=== PATIENT | female | born 1990 | race Caucasian/White ===

== ENCOUNTER 2018-06-22 11:25 | Emergency (ER) | payer MEDICAID ==
[~2018-06-22] VITALS: Ht 162.6 cm; Wt 75.0 kg
[~2018-06-22 11:25] MED LIST: ACYC-1 PO; ALBU8.5H8 IH; AZIT500T PO; BISA10SU60 RC; CLON-528 PO; DIPH-423 PO; DIPH25CA83 PO; DOXY-1 PO; HYDR-4353 PO; HYDR-4383 PO; IBUP-1986 PO; LAMO100T2 PO; MAGN296S50 PO; METH-360 PO; METO50TA16 PO; MULT-1085 PO; MYCO500T PO; ONDA8TAB12 PO; OXYC-150 PO; PANT-47 PO; PHE12.5T PO; POSA100T PO; PRED5SOL25 PO; PRED5TAB PO; SULF1TAB49 PO
[2018-06-22 11:41] VITALS: BP 128/88
[2018-06-22] MEDS ORDERED: HYDROcodone/acetaminophen 5mg/325mg tablet PO ONE (11:50)
[2018-06-22] MEDS ORDERED: diazepam 5mg tablet PO ONE (11:50)
[2018-06-22] MEDS ORDERED: ONDA4TAB6 PO (12:35)
[2018-06-22] MEDS ORDERED: CYCL-1 PO (12:35)
[2018-06-22] MEDS ORDERED: HYDR-4383 PO (12:35)
== END 2018-06-22 13:41 | disposition home or self-care (01) ==
LOC: ER 11:25
DX: S13.4XXA Sprain of ligaments of cervical spine, initial encounter (principal); G89.29 Other chronic pain; Z90.49 Acquired absence of other specified parts of digestive tract; Z98.890 Other specified postprocedural states; Z95.1 Presence of aortocoronary bypass graft; Z90.710 Acquired absence of both cervix and uterus; Z88.6 Allergy status to analgesic agent; Z88.1 Allergy status to other antibiotic agents; Z88.8 Allergy status to other drugs, medicaments and biological substances; Z79.899 Other long term (current) drug therapy; V49.59XA Passenger injured in collision with other motor vehicles in traffic accident, initial encounter; Y93.89 Activity, other specified; Y92.413 State road as the place of occurrence of the external cause; Y99.9 Unspecified external cause status
CPT/HCPCS: 72040; 99283

== ENCOUNTER 2019-01-12 13:56 | Emergency (ER) | payer MEDICAID, OTHER ==
[~2019-01-12] VITALS: Ht 162.6 cm; Wt 81.0 kg
[~2019-01-12 13:56] MED LIST changes: +CYCL-1 PO; +ONDA4TAB6 PO; -PHE12.5T PO; +PROM12.512 PO
[2019-01-12] MEDS ORDERED: normal saline 1000ML IV soln IV ONE (14:45)
[2019-01-12] MEDS ORDERED: ondansetron/PF 4mg/2ml inj IV ONE (14:50)
[2019-01-12] MEDS ORDERED: normal saline 1000ML IV soln IVB ONE (14:50)
[2019-01-12] MEDS ORDERED: morphine 4 MG/ML inj SYRINge IV PRN (14:50)
[2019-01-12 14:54] LABS: CLARITY,URINE CLOUDY (Clear); COLOR,URINE YELLOW (Yellow); GLUCOSE, URINE NEGATIVE (Neg); KETONES,URINE TRACE mg/dl (Neg); LEUKOCYTE ESTERASE ,URINE NEGATIVE (Neg); NITRITES, URINE NEGATIVE (Neg); OCCULT BLOOD,URINE NEGATIVE (Neg); PROTEIN,URINE TRACE mg/dl (Neg); URINE HCG NEGATIVE (NEG)
[2019-01-12 14:56] LABS: UA COLLECTION TYPE CLN CATCH MIDSTREAM
[2019-01-12 15:01] VITALS: BP 123/85
[2019-01-12 15:01] LABS: HYALINE CASTS >30 /LPF (NEGATIVE); MUCUS STRANDS MODERATE /LPF (Neg); SQUAMOUS EPITHELIAL CELL,UR MODERATE /LPF (FEW)
[2019-01-12 15:02] LABS: BACTERIA,URINE 1+ /HPF (Neg); RBC,URINE 0-2 /HPF (0-2); WBC,URINE 0-4 /HPF (0-4)
[2019-01-12 15:16] LABS: BASOPHILS % (AUTO) 0.2 % (0-1); EOSINOPHILS % (AUTO) 0.2 % (0-6); HEMATOCRIT 41.9 % (35.0-45.0); HEMOGLOBIN 14.3 g/dl (12.0-16.0); LYMPHOCYTES # (AUTO) 0.7 X10'3 (1.1-4.8); LYMPHOCYTES % (AUTO) 8.6 % (21-51); MEAN CORPUSCULAR HEMOGLOBIN 32.7 PG (27.0-31.0); MEAN CORPUSCULAR HGB CONC 34.2 g/dL (33.0-36.5); MEAN CORPUSCULAR VOLUME 95.7 FL (78-98); MEAN PLATELET VOLUME 7.3 FL (7.4-10.4); MONOCYTES # (AUTO) 0.4 X10'3 (0-0.9); NEUTROPHILS # (AUTO) 6.6 X10'3 (1.8-7.7); PLATELET COUNT 162 X10'3 (140-440); RED BLOOD COUNT 4.37 X10'6 (4.20-5.60); RED CELL DISTRIBUTION WIDTH 13.9 % (11.5-14.5); WHITE BLOOD COUNT 7.7 X10'3 (4.5-11.0)
[2019-01-12] MEDS ORDERED: HYDROmorphone 1 mg/ml syringe IV ONE ×2 (15:35→17:10)
[2019-01-12 15:44] LABS: ALANINE AMINOTRANSFERASE 524 U/L (12-78); ALBUMIN 4.2 G/DL (3.4-5.0); ALBUMIN/GLOBULIN RATIO 1.2 (1.1-1.5); ALKALINE PHOSPHATASE 446 IU/L (46-116); ANION GAP 14 (8-16); ASPARTATE AMINO TRANSFERASE 331 U/L (10-37); BILIRUBIN,TOTAL 1.1 MG/DL (0.1-1.0); BLOOD UREA NITROGEN 7 MG/DL (7-18); BUN/CREATININE RATIO 6.3 (6.6-38.0); CALCIUM 9.6 MG/DL (8.5-10.1); CHLORIDE 104 MMOL/L (99-107); CREATININE 1.12 MG/DL (0.40-0.90); GLUCOSE 116 MG/DL (70-104); SODIUM 139 MMOL/L (135-145); TOTAL CARBON DIOXIDE 21.1 MMOL/L (24-32); TOTAL PROTEIN 7.7 G/DL (6.4-8.2); eGFR 58 ML/MIN
[2019-01-12] MEDS ORDERED: iohexol 300mg/ml 100ml inj. ONE (16:02)
--- NOTE | 2019-01-12 16:13 | NUR ---
VERBAL ORDER, CHANGED CT ABD/PEL TO NON CONTRAST.
--- NOTE | 2019-01-12 18:01 | NUR ---
gave pt water, amina well no n/v
[2019-01-12] MEDS ORDERED: HYDR-4383 PO (18:04)
[2019-01-12] MEDS ORDERED: ONDA4TAB6 PO (18:04)
== END 2019-01-12 18:17 | disposition home or self-care (01) ==
LOC: ER 13:56
DX: K52.9 Noninfective gastroenteritis and colitis, unspecified (principal); G89.29 Other chronic pain; F41.9 Anxiety disorder, unspecified; F32.9 Major depressive disorder, single episode, unspecified; Z90.49 Acquired absence of other specified parts of digestive tract; Z86.69 Personal history of other diseases of the nervous system and sense organs; Z86.2 Personal history of diseases of the blood and blood-forming organs and certain disorders involving the immune mechanism; Z90.710 Acquired absence of both cervix and uterus; Z95.1 Presence of aortocoronary bypass graft; Z98.890 Other specified postprocedural states; Z88.6 Allergy status to analgesic agent; Z88.5 Allergy status to narcotic agent; Z88.1 Allergy status to other antibiotic agents; Z88.8 Allergy status to other drugs, medicaments and biological substances; Z79.899 Other long term (current) drug therapy
CPT/HCPCS: 36415; 74176; 80053; 81001; 81025; 83605; 84145; 85025; 85610; 87040; 96361; 96374; 96375; 96376; 99284; J1170; J2270; J2405; J7030; Q9967

== ENCOUNTER 2019-01-18 19:11 | Inpatient (IN) | payer MEDICAID ==
[~2019-01-18] VITALS: Ht 162.6 cm; Wt 81.0 kg
[2019-01-18 19:59] LABS: URINE HCG NEGATIVE (NEG)
[2019-01-18 20:04] LABS: CLARITY,URINE CLEAR (Clear); COLOR,URINE YELLOW (Yellow); GLUCOSE, URINE NEGATIVE (Neg); KETONES,URINE NEGATIVE (Neg); LEUKOCYTE ESTERASE ,URINE NEGATIVE (Neg); NITRITES, URINE NEGATIVE (Neg); OCCULT BLOOD,URINE NEGATIVE (Neg); PH,URINE 6.5 (4.8-8.0); PROTEIN,URINE NEGATIVE (Neg); UROBILINOGEN,URINE 0.2 E.U/dL (0.2-1.0)
[2019-01-18 20:07] LABS: BASOPHILS % (AUTO) 0.5 % (0-1); EOSINOPHILS # (AUTO) 0.1 X10'3 (0-0.9); EOSINOPHILS % (AUTO) 1.1 % (0-6); HEMATOCRIT 40.5 % (35.0-45.0); HEMOGLOBIN 13.9 g/dl (12.0-16.0); LYMPHOCYTES # (AUTO) 2.2 X10'3 (1.1-4.8); LYMPHOCYTES % (AUTO) 32.2 % (21-51); MEAN CORPUSCULAR HGB CONC 34.4 g/dL (33.0-36.5); MEAN PLATELET VOLUME 7.5 FL (7.4-10.4); MONOCYTES # (AUTO) 0.6 X10'3 (0-0.9); MONOCYTES % (AUTO) 8.8 % (2-12); NEUTROPHILS # (AUTO) 3.9 X10'3 (1.8-7.7); NEUTROPHILS % (AUTO) 57.4 % (42-75); PLATELET COUNT 168 X10'3 (140-440); RED BLOOD COUNT 4.22 X10'6 (4.20-5.60); RED CELL DISTRIBUTION WIDTH 13.1 % (11.5-14.5); WHITE BLOOD COUNT 6.9 X10'3 (4.5-11.0)
[2019-01-18 20:08] LABS: UA COLLECTION TYPE CLN CATCH MIDSTREAM
[2019-01-18 20:21] LABS: ALANINE AMINOTRANSFERASE 217 U/L (12-78); ALBUMIN 4.3 G/DL (3.4-5.0); ALBUMIN/GLOBULIN RATIO 1.2 (1.1-1.5); ALKALINE PHOSPHATASE 589 IU/L (46-116); ANION GAP 12 (8-16); ASPARTATE AMINO TRANSFERASE 139 U/L (10-37); BILIRUBIN,TOTAL 0.7 MG/DL (0.1-1.0); BLOOD UREA NITROGEN 10 MG/DL (7-18); BUN/CREATININE RATIO 7.4 (6.6-38.0); CALCIUM 9.5 MG/DL (8.5-10.1); CHLORIDE 103 MMOL/L (99-107); CREATININE 1.36 MG/DL (0.40-0.90); GLUCOSE 88 MG/DL (70-104); LIPASE 168 U/L (73-393); MAGNESIUM 2.2 MG/DL (1.5-2.4); SODIUM 140 MMOL/L (135-145); TOTAL CARBON DIOXIDE 24.7 MMOL/L (24-32); TOTAL PROTEIN 7.9 G/DL (6.4-8.2); eGFR 46 ML/MIN
[2019-01-18] MEDS ORDERED: fentaNYL/PF 50MCG/1 ML 2ML syringe IV ONE ×2 (20:25→21:35)
[2019-01-18] MEDS ORDERED: ondansetron/PF 4mg/2ml inj IV ONE (20:25)
[2019-01-18] MEDS ORDERED: diphenhydrAMINE 50 mg/ml inj IV ONE ×2 (20:25→21:15)
[2019-01-18] MEDS ORDERED: fentaNYL/PF 50MCG/1 ML 2ML syringe IV PRN (21:35)
[2019-01-18] MEDS ORDERED: mag hydrox/Alum hydrox/simeth 30ml oral suspension PO PRN (22:45)
[2019-01-18] MEDS ORDERED: HYDROmorphone 1 mg/ml syringe IV PRN (22:45)
[2019-01-18] MEDS ORDERED: acetaminophen 325mg tablet PO PRN (22:45)
[2019-01-18] MEDS ORDERED: magnesium hydroxide 30ml (MOM) UD suspension PO PRN (22:45)
[2019-01-18] MEDS ORDERED: naloxone 0.4 mg/ml inj IV PRN (22:50)
[2019-01-18] MEDS ORDERED: CADD PCA waste documentation MC PRN (22:50)
[2019-01-18] MEDS ORDERED: GABA-532 PO ×2 (22:53)
[2019-01-18] MEDS ORDERED: LURA40TA3 PO (22:53)
[2019-01-18] MEDS ORDERED: AMIT-189 PO (22:53)
[2019-01-18] MEDS ORDERED: lithium carbonate PO (22:53)
[2019-01-18] MEDS ORDERED: BUSP10TA11 PO (22:53)
[2019-01-18] MEDS ORDERED: diphenhydrAMINE 25mg capsule PO PRN (23:15)
[2019-01-19] MEDS: amitriptyline 50mg tablet PO SCH ×2 (00:15→21:30)
[2019-01-19] MEDS: normal saline 1000ml 1,000 ML IV SCH ×3 (00:30→20:10)
[2019-01-19] MEDS: HYDROmorphone/NS 1 mg/ml CADD 50 ML IV SCH ×6 (00:32→09:00)
[2019-01-19 00:49] VITALS: BP 106/73
--- NOTE | 2019-01-19 03:26 | NUR ---
REPORT REC'D FROM DAYDAY GAONA FROM ER. PIV 20GUAGE TO RIGHT FOOT PLACED IN ER. PT IS UP TO FLOOR , SETTLED IN WITH DILAUDID CADD PUMP IN PLACE.
[2019-01-19 06:10] VITALS: BP 97/61
--- NOTE | 2019-01-19 06:27 | NUR ---
REPORT GIVEN TO DAYDAY DIEHL.
--- NOTE | 2019-01-19 06:30 | NUR ---
Patient in room ORTHO 4021. I have received report from Savanna NAYLOR and had the opportunity to ask questions and assume patient care.
[2019-01-19 07:08] LABS: BASOPHILS % (AUTO) 0.6 % (0-1); EOSINOPHILS # (AUTO) 0.1 X10'3 (0-0.9); EOSINOPHILS % (AUTO) 2.9 % (0-6); HEMATOCRIT 38.8 % (35.0-45.0); HEMOGLOBIN 13.3 g/dl (12.0-16.0); LYMPHOCYTES # (AUTO) 1.1 X10'3 (1.1-4.8); LYMPHOCYTES % (AUTO) 46.8 % (21-51); MEAN CORPUSCULAR HEMOGLOBIN 33.1 PG (27.0-31.0); MEAN CORPUSCULAR HGB CONC 34.3 g/dL (33.0-36.5); MEAN CORPUSCULAR VOLUME 96.4 FL (78-98); MEAN PLATELET VOLUME 7.7 FL (7.4-10.4); MONOCYTES # (AUTO) 0.2 X10'3 (0-0.9); MONOCYTES % (AUTO) 10.3 % (2-12); NEUTROPHILS # (AUTO) 0.9 X10'3 (1.8-7.7); NEUTROPHILS % (AUTO) 39.4 % (42-75); PLATELET COUNT 118 X10'3 (140-440); RED BLOOD COUNT 4.03 X10'6 (4.20-5.60); RED CELL DISTRIBUTION WIDTH 13.6 % (11.5-14.5); WHITE BLOOD COUNT 2.3 X10'3 (4.5-11.0)
[2019-01-19 07:36] LABS: ALANINE AMINOTRANSFERASE 574 U/L (12-78); ALBUMIN 4.1 G/DL (3.4-5.0); ALBUMIN/GLOBULIN RATIO 1.2 (1.1-1.5); ALKALINE PHOSPHATASE 604 IU/L (46-116); ANION GAP 8 (8-16); ASPARTATE AMINO TRANSFERASE 499 U/L (10-37); BILIRUBIN,TOTAL 1.8 MG/DL (0.1-1.0); BLOOD UREA NITROGEN 8 MG/DL (7-18); BUN/CREATININE RATIO 7.4 (6.6-38.0); CALCIUM 8.9 MG/DL (8.5-10.1); CHLORIDE 105 MMOL/L (99-107); CREATININE 1.08 MG/DL (0.40-0.90); GLUCOSE 107 MG/DL (70-104); POTASSIUM 3.5 MMOL/L (3.5-5.1); SODIUM 142 MMOL/L (135-145); TOTAL CARBON DIOXIDE 29.5 MMOL/L (24-32); TOTAL PROTEIN 7.4 G/DL (6.4-8.2); eGFR 60 ML/MIN
[2019-01-19] MEDS: ondansetron/PF 4mg/2ml inj IV PRN ×2 (07:59→13:40)
[2019-01-19] MEDS ORDERED: clonazePAM 0.5mg tablet PO PRN (08:00)
[2019-01-19] MEDS: busPIRone 5mg tablet PO SCH ×2 (08:00→21:29)
[2019-01-19] MEDS: lamoTRIgine 25mg tablet PO SCH ×2 (08:00→21:29)
[2019-01-19] MEDS: heparin, porcine 5000 units/ml vial SQ SCH ×2 (09:15→21:30)
[2019-01-19] MEDS: diphenhydrAMINE 50 mg/ml inj IV PRN ×2 (09:16→15:49)
[2019-01-19 10:00] VITALS: BP 108/69
[2019-01-19 10:20] LABS: PLATELET ESTIMATE DECREASED; TOTAL CELLS COUNTED 100
[2019-01-19] MEDS: LORazepam 2 mg/ml vial IV PRN ×2 (11:29→20:30)
[2019-01-19] MEDS: metoclopramide 5 mg/ml inj IV PRN (11:29)
[2019-01-19] MEDS: HYDROmorphone 1 mg/ml syringe IV PRN ×3 (11:30→20:25)
[2019-01-19 18:00] VITALS: BP 113/78
--- NOTE | 2019-01-19 18:15 | NUR ---
Patient report given to Lexus NAYLOR
[2019-01-19 18:35] LABS: URINE AMPHETAMINE SCREEN NEGATIVE (Neg); URINE BARBITUATE SCREEN NEGATIVE (Neg); URINE BENZODIAZEPINES SCREEN NEGATIVE (Neg); URINE CANNABINOID SCREEN POSITIVE (Neg); URINE COCAINE SCREEN NEGATIVE (Neg); URINE METHADONE SCREEN NEGATIVE (Neg); URINE OPIATE SCREEN POSITIVE (Neg); URINE PHENCYCLIDINE SCREEN NEGATIVE (Neg)
[2019-01-19] MEDS ORDERED: amitriptyline 50mg tablet PO SCH (21:00)
[2019-01-19] MEDS: lurasidone 20mg tablet PO SCH (21:31)
[2019-01-19 22:00] VITALS: BP 122/79
[2019-01-20] MEDS: diphenhydrAMINE 50 mg/ml inj IV PRN ×2 (00:46→20:57)
[2019-01-20] MEDS: HYDROmorphone 1 mg/ml syringe IV PRN ×5 (00:46→20:58)
[2019-01-20] MEDS: lithium carbonate 300mg SR tablet (LithoBID) PO SCH ×3 (01:03→21:09)
[2019-01-20] MEDS: LORazepam 2 mg/ml vial IV PRN ×3 (04:48→20:57)
[2019-01-20] MEDS: normal saline 1000ml 1,000 ML IV SCH ×2 (04:56→14:40)
[2019-01-20 05:13] LABS: ALANINE AMINOTRANSFERASE 597 U/L (12-78); ALBUMIN 3.6 G/DL (3.4-5.0); ALBUMIN/GLOBULIN RATIO 1.2 (1.1-1.5); ALKALINE PHOSPHATASE 488 IU/L (46-116); ANION GAP 9 (8-16); ASPARTATE AMINO TRANSFERASE 245 U/L (10-37); BILIRUBIN,TOTAL 0.6 MG/DL (0.1-1.0); BLOOD UREA NITROGEN 5 MG/DL (7-18); BUN/CREATININE RATIO 6.3 (6.6-38.0); CALCIUM 7.8 MG/DL (8.5-10.1); CHLORIDE 109 MMOL/L (99-107); GLUCOSE 100 MG/DL (70-104); POTASSIUM 4.1 MMOL/L (3.5-5.1); SODIUM 141 MMOL/L (135-145); TOTAL CARBON DIOXIDE 23.4 MMOL/L (24-32); TOTAL PROTEIN 6.6 G/DL (6.4-8.2); eGFR 85 ML/MIN
[2019-01-20 06:00] VITALS: BP 99/53
[2019-01-20] MEDS: heparin, porcine 5000 units/ml vial SQ SCH (08:00)
[2019-01-20] MEDS: busPIRone 5mg tablet PO SCH ×2 (08:10→21:07)
[2019-01-20] MEDS: lamoTRIgine 25mg tablet PO SCH ×2 (08:10→21:08)
[2019-01-20] MEDS: ondansetron/PF 4mg/2ml inj IV PRN (08:12)
[2019-01-20 08:15] LABS: BASOPHILS % (AUTO) 0.8 % (0-1); EOSINOPHILS % (AUTO) 2.3 % (0-6); HEMATOCRIT 31.4 % (35.0-45.0); HEMOGLOBIN 10.7 g/dl (12.0-16.0); LYMPHOCYTES # (AUTO) 0.8 X10'3 (1.1-4.8); LYMPHOCYTES % (AUTO) 42.2 % (21-51); MEAN CORPUSCULAR HEMOGLOBIN 33.7 PG (27.0-31.0); MEAN CORPUSCULAR HGB CONC 34.1 g/dL (33.0-36.5); MEAN CORPUSCULAR VOLUME 98.9 FL (78-98); MEAN PLATELET VOLUME 7.9 FL (7.4-10.4); MONOCYTES # (AUTO) 0.2 X10'3 (0-0.9); MONOCYTES % (AUTO) 10.5 % (2-12); NEUTROPHILS # (AUTO) 0.8 X10'3 (1.8-7.7); NEUTROPHILS % (AUTO) 44.2 % (42-75); PLATELET COUNT 67 X10'3 (140-440); RED BLOOD COUNT 3.17 X10'6 (4.20-5.60); RED CELL DISTRIBUTION WIDTH 13.4 % (11.5-14.5); WHITE BLOOD COUNT 1.8 X10'3 (4.5-11.0)
[2019-01-20 10:00] VITALS: BP 116/77
[2019-01-20 10:41] LABS: PLATELET ESTIMATE DECREASED; TOTAL CELLS COUNTED 100
[2019-01-20] MEDS ORDERED: diphenhydrAMINE 25mg capsule PO ONE (11:40)
--- NOTE | 2019-01-20 11:56 | NUR ---
PAGER ID: [phone] MESSAGE: Mia [phone] [id number] Xiomara Pryor- she wants me to give iv Ativan, dilaudid, and Benadryl all together at the same time. Are you ok with this? Pls call me, thanks.
[2019-01-20 18:00] VITALS: BP 131/88
--- NOTE | 2019-01-20 19:00 | NUR ---
Patient in room ORTHO 4021. I have received report from Patient in room ORTHO 4021. I have received report from Mia NAYLOR and had the opportunity to ask questions and assume patient care. and had the opportunity to ask questions and assume patient care.
[2019-01-20] MEDS: lurasidone 20mg tablet PO SCH (21:00)
[2019-01-20] MEDS: amitriptyline 50mg tablet PO SCH (21:10)
[2019-01-20 22:00] VITALS: BP 144/100
[2019-01-21] MEDS: HYDROmorphone 1 mg/ml syringe IV PRN ×5 (00:34→20:40)
[2019-01-21] MEDS: normal saline 1000ml 1,000 ML IV SCH ×3 (00:44→19:10)
[2019-01-21] MEDS: LORazepam 2 mg/ml vial IV PRN ×3 (04:47→20:46)
[2019-01-21] MEDS: diphenhydrAMINE 50 mg/ml inj IV PRN (04:47)
[2019-01-21 05:32] LABS: ALANINE AMINOTRANSFERASE 385 U/L (12-78); ALBUMIN 3.3 G/DL (3.4-5.0); ALBUMIN/GLOBULIN RATIO 1.1 (1.1-1.5); ALKALINE PHOSPHATASE 387 IU/L (46-116); ANION GAP 7 (8-16); ASPARTATE AMINO TRANSFERASE 80 U/L (10-37); BILIRUBIN,TOTAL 0.3 MG/DL (0.1-1.0); BLOOD UREA NITROGEN 4 MG/DL (7-18); BUN/CREATININE RATIO 5.4 (6.6-38.0); CALCIUM 8.5 MG/DL (8.5-10.1); CHLORIDE 110 MMOL/L (99-107); CREATININE 0.74 MG/DL (0.40-0.90); GLUCOSE 93 MG/DL (70-104); SODIUM 142 MMOL/L (135-145); TOTAL CARBON DIOXIDE 25.3 MMOL/L (24-32); TOTAL PROTEIN 6.2 G/DL (6.4-8.2); eGFR > 90 ML/MIN
[2019-01-21 05:43] LABS: BASOPHILS % (AUTO) 0.8 % (0-1); EOSINOPHILS # (AUTO) 0.1 X10'3 (0-0.9); EOSINOPHILS % (AUTO) 2.4 % (0-6); HEMATOCRIT 32.5 % (35.0-45.0); HEMOGLOBIN 11.3 g/dl (12.0-16.0); LYMPHOCYTES # (AUTO) 0.9 X10'3 (1.1-4.8); LYMPHOCYTES % (AUTO) 41.3 % (21-51); MEAN CORPUSCULAR HEMOGLOBIN 33.2 PG (27.0-31.0); MEAN CORPUSCULAR HGB CONC 34.8 g/dL (33.0-36.5); MEAN CORPUSCULAR VOLUME 95.5 FL (78-98); MONOCYTES # (AUTO) 0.1 X10'3 (0-0.9); MONOCYTES % (AUTO) 6.6 % (2-12); NEUTROPHILS % (AUTO) 48.9 % (42-75); PLATELET COUNT 89 X10'3 (140-440); RED CELL DISTRIBUTION WIDTH 13.2 % (11.5-14.5); WHITE BLOOD COUNT 2.1 X10'3 (4.5-11.0)
[2019-01-21 06:00] VITALS: BP 123/86
--- NOTE | 2019-01-21 06:10 | NUR ---
Patient in room ORTHO 4021. I have received report from Syed Marquez RN and had the opportunity to ask questions and assume patient care.
[2019-01-21 06:32] LABS: PLATELET ESTIMATE DECREASED; TOTAL CELLS COUNTED 100
--- NOTE | 2019-01-21 06:47 | NUR ---
Problems reprioritized. Patient report given, questions answered & plan of care reviewed with Kavitha NAYLOR.
[2019-01-21] MEDS: busPIRone 5mg tablet PO SCH ×2 (08:23→20:44)
[2019-01-21] MEDS: lithium carbonate 300mg SR tablet (LithoBID) PO SCH ×2 (08:23→20:43)
[2019-01-21] MEDS: lamoTRIgine 25mg tablet PO SCH ×2 (08:23→20:43)
[2019-01-21 10:00] VITALS: BP 111/76
[2019-01-21] MEDS: diphenhydrAMINE 25mg capsule PO PRN ×2 (10:56→20:44)
--- NOTE | 2019-01-21 12:48 | NUR ---
PAGER ID: [phone] MESSAGE: Trevon Vicente, Ms Pryor's mother is here for rm [id number] thank you Kavitha
--- NOTE | 2019-01-21 15:39 | NUR ---
PAGER ID: [phone] MESSAGE: Trevon Vicente, are we still doing the gastric emptying study on Ms. Pryor in [id number] set for tomorrow? Thank you Kavitha #[phone]
--- NOTE | 2019-01-21 16:04 | NUR ---
Pt to have gastric emptying study tomorrow (01/22) at approx. 09:00. Pt's last dose of any narcotics/reglan/zofran/ativan needs to be prior to 21:00. Pt to be NPO after midnight. Confirmed with and [facility].
--- NOTE | 2019-01-21 18:33 | NUR ---
Problems reprioritized. Patient report given, questions answered & plan of care reviewed with Blaine NAYLOR.
--- NOTE | 2019-01-21 18:35 | NUR ---
Patient in room ORTHO 4021. I have received report from YIFAN NAYLOR and had the opportunity to ask questions and assume patient care.
[2019-01-21 19:00] VITALS: BP 123/82
[2019-01-21] MEDS: amitriptyline 50mg tablet PO SCH (20:43)
[2019-01-21] MEDS: lurasidone 20mg tablet PO SCH (20:43)
[2019-01-22] VITALS: BP 121/86
[2019-01-22] MEDS: normal saline 1000ml 1,000 ML IV SCH ×3 (04:39→20:39)
[2019-01-22 06:06] LABS: BASOPHILS % (AUTO) 0.9 % (0-1); EOSINOPHILS # (AUTO) 0.1 X10'3 (0-0.9); EOSINOPHILS % (AUTO) 2.7 % (0-6); HEMATOCRIT 36.1 % (35.0-45.0); HEMOGLOBIN 12.4 g/dl (12.0-16.0); LYMPHOCYTES # (AUTO) 0.9 X10'3 (1.1-4.8); LYMPHOCYTES % (AUTO) 31.2 % (21-51); MEAN CORPUSCULAR HEMOGLOBIN 33.3 PG (27.0-31.0); MEAN CORPUSCULAR HGB CONC 34.5 g/dL (33.0-36.5); MEAN CORPUSCULAR VOLUME 96.7 FL (78-98); MEAN PLATELET VOLUME 7.2 FL (7.4-10.4); MONOCYTES # (AUTO) 0.2 X10'3 (0-0.9); MONOCYTES % (AUTO) 5.8 % (2-12); NEUTROPHILS # (AUTO) 1.6 X10'3 (1.8-7.7); NEUTROPHILS % (AUTO) 59.4 % (42-75); PLATELET COUNT 115 X10'3 (140-440); RED BLOOD COUNT 3.74 X10'6 (4.20-5.60); RED CELL DISTRIBUTION WIDTH 13.8 % (11.5-14.5); WHITE BLOOD COUNT 2.7 X10'3 (4.5-11.0)
[2019-01-22 06:10] VITALS: BP 128/83
--- NOTE | 2019-01-22 06:30 | NUR ---
Problems reprioritized. Patient report given, questions answered & plan of care reviewed with FAZAL NAYLOR.
[2019-01-22 07:02] LABS: PLATELET ESTIMATE DECREASED; TOTAL CELLS COUNTED 100
[2019-01-22 07:06] LABS: ALANINE AMINOTRANSFERASE 331 U/L (12-78); ALBUMIN 3.6 G/DL (3.4-5.0); ALBUMIN/GLOBULIN RATIO 1.2 (1.1-1.5); ALKALINE PHOSPHATASE 415 IU/L (46-116); ANION GAP 11 (8-16); ASPARTATE AMINO TRANSFERASE 71 U/L (10-37); BILIRUBIN,TOTAL 0.6 MG/DL (0.1-1.0); BLOOD UREA NITROGEN 3 MG/DL (7-18); BUN/CREATININE RATIO 3.9 (6.6-38.0); CALCIUM 8.7 MG/DL (8.5-10.1); CHLORIDE 108 MMOL/L (99-107); CREATININE 0.77 MG/DL (0.40-0.90); GLUCOSE 87 MG/DL (70-104); POTASSIUM 3.9 MMOL/L (3.5-5.1); SODIUM 143 MMOL/L (135-145); TOTAL CARBON DIOXIDE 23.8 MMOL/L (24-32); TOTAL PROTEIN 6.7 G/DL (6.4-8.2); eGFR 89 ML/MIN
[2019-01-22] MEDS: lamoTRIgine 25mg tablet PO SCH ×2 (08:00→20:59)
[2019-01-22] MEDS: lithium carbonate 300mg SR tablet (LithoBID) PO SCH ×2 (08:00→21:00)
[2019-01-22] MEDS: busPIRone 5mg tablet PO SCH ×2 (08:00→21:00)
[2019-01-22 10:00] VITALS: BP 116/84
[2019-01-22] MEDS: diphenhydrAMINE 25mg capsule PO PRN ×2 (12:46→20:59)
[2019-01-22] MEDS: HYDROmorphone 1 mg/ml syringe IV PRN ×3 (12:49→23:42)
[2019-01-22] MEDS: LORazepam 2 mg/ml vial IV PRN ×2 (13:01→21:00)
[2019-01-22] MEDS: metoclopramide 5 mg/ml inj IV PRN ×2 (13:52→21:01)
[2019-01-22 18:00] VITALS: BP 127/87
--- NOTE | 2019-01-22 18:00 | NUR ---
Patient in room ORTHO 4021. I have received report from DAYDAY Stephens and had the opportunity to ask questions and assume patient care.
--- NOTE | 2019-01-22 18:29 | NUR ---
Patient report given to Tamara NAYLOR
[2019-01-22] MEDS: lurasidone 20mg tablet PO SCH (21:00)
[2019-01-22] MEDS: amitriptyline 50mg tablet PO SCH (21:00)
[2019-01-23] MEDS: diphenhydrAMINE 25mg capsule PO PRN (04:04)
[2019-01-23] MEDS: HYDROmorphone 1 mg/ml syringe IV PRN (04:04)
[2019-01-23] MEDS: LORazepam 2 mg/ml vial IV PRN (05:14)
[2019-01-23 06:00] VITALS: BP 109/78
--- NOTE | 2019-01-23 06:20 | NUR ---
Patient in room ORTHO 4021. I have received report from DAYDAY Juarez and had the opportunity to ask questions and assume patient care.
--- NOTE | 2019-01-23 06:50 | NUR ---
Problems reprioritized. Patient report given, questions answered & plan of care reviewed with DAYDAY Bhagat.
[2019-01-23] MEDS: normal saline 1000ml 1,000 ML IV SCH (08:00)
--- NOTE | 2019-01-23 08:05 | NUR ---
IV cannula noted in right foot has dislodged and was discontinued at this time. Pt reports she is going home later today. Sent page to to report IV has dc'd and pt is requesting po pain medications at discharge.
[2019-01-23 08:13] LABS: HBSAG SCREEN Negative (Negative); HEP A AB, IGM Negative (Negative); HEP B CORE AB, IGM Negative (Negative); HEPATITIS C ANTIBODY <0.1 s/co ratio (0.0-0.9)
[2019-01-23] MEDS: busPIRone 5mg tablet PO SCH (08:41)
[2019-01-23] MEDS: lithium carbonate 300mg SR tablet (LithoBID) PO SCH (08:41)
[2019-01-23] MEDS: lamoTRIgine 25mg tablet PO SCH (08:41)
[2019-01-23 11:03] LABS: BASOPHILS % (AUTO) 0.5 % (0-1); EOSINOPHILS # (AUTO) 0.1 X10'3 (0-0.9); EOSINOPHILS % (AUTO) 1.9 % (0-6); HEMATOCRIT 37.8 % (35.0-45.0); HEMOGLOBIN 12.9 g/dl (12.0-16.0); LYMPHOCYTES # (AUTO) 0.9 X10'3 (1.1-4.8); LYMPHOCYTES % (AUTO) 31.5 % (21-51); MEAN CORPUSCULAR HEMOGLOBIN 32.4 PG (27.0-31.0); MEAN CORPUSCULAR HGB CONC 34.1 g/dL (33.0-36.5); MEAN PLATELET VOLUME 6.8 FL (7.4-10.4); MONOCYTES # (AUTO) 0.2 X10'3 (0-0.9); MONOCYTES % (AUTO) 5.7 % (2-12); NEUTROPHILS # (AUTO) 1.8 X10'3 (1.8-7.7); NEUTROPHILS % (AUTO) 60.4 % (42-75); PLATELET COUNT 115 X10'3 (140-440); RED BLOOD COUNT 3.97 X10'6 (4.20-5.60); RED CELL DISTRIBUTION WIDTH 13.5 % (11.5-14.5); WHITE BLOOD COUNT 2.9 X10'3 (4.5-11.0)
[2019-01-23] MEDS ORDERED: METO-292 PO (11:06)
[2019-01-23] MEDS ORDERED: HYDR-4383 PO (11:06)
[2019-01-23] MEDS ORDERED: OMEP40CA13 PO (11:07)
[2019-01-23 11:16] LABS: ALANINE AMINOTRANSFERASE 314 U/L (12-78); ALBUMIN 3.6 G/DL (3.4-5.0); ALBUMIN/GLOBULIN RATIO 1.2 (1.1-1.5); ALKALINE PHOSPHATASE 455 IU/L (46-116); ANION GAP 10 (8-16); ASPARTATE AMINO TRANSFERASE 93 U/L (10-37); BILIRUBIN,TOTAL 0.6 MG/DL (0.1-1.0); BLOOD UREA NITROGEN 3 MG/DL (7-18); BUN/CREATININE RATIO 3.6 (6.6-38.0); CALCIUM 9.1 MG/DL (8.5-10.1); CHLORIDE 107 MMOL/L (99-107); CREATININE 0.84 MG/DL (0.40-0.90); GLUCOSE 141 MG/DL (70-104); POTASSIUM 3.8 MMOL/L (3.5-5.1); SODIUM 141 MMOL/L (135-145); TOTAL CARBON DIOXIDE 24.5 MMOL/L (24-32); TOTAL PROTEIN 6.7 G/DL (6.4-8.2); eGFR 80 ML/MIN
[2019-01-23 11:23] LABS: PLATELET ESTIMATE DECREASED; TOTAL CELLS COUNTED 100
--- NOTE | 2019-01-23 13:45 | NUR ---
Received discharge orders for pt to discharge today. Stored medications picked up and given to pt who signed pharmacy receipt. RX called to [facility] on [address] by Scott Silver RN. RX for [place] given to pt and informed pt she needs to take it to the Pharmacy to be filled. Discharged via w/c to private vehicle.
== END 2019-01-23 15:14 | disposition home or self-care (01) | DRG 254 ==
LOC: ER 19:11 → ORTHO 4S 23:20 → CMPBEDREQ 23:58
PROVIDERS: ADMIT Internal Medicine; ATTEND Family Medicine
PROC: CD1YYZZ Planar Nuclear Medicine Imaging of Digestive System using Other Radionuclide (ICD-10-PCS; principal; 2019-01-22)
DX: K31.84 Gastroparesis (principal); E86.0 Dehydration; K29.00 Acute gastritis without bleeding; F11.10 Opioid abuse, uncomplicated; F32.9 Major depressive disorder, single episode, unspecified; F41.9 Anxiety disorder, unspecified; G89.29 Other chronic pain; M54.9 Dorsalgia, unspecified; G40.909 Epilepsy, unspecified, not intractable, without status epilepticus; Z85.6 Personal history of leukemia; Z90.710 Acquired absence of both cervix and uterus; Z88.8 Allergy status to other drugs, medicaments and biological substances; Z91.041 Radiographic dye allergy status; Z90.49 Acquired absence of other specified parts of digestive tract; Z95.1 Presence of aortocoronary bypass graft
CPT/HCPCS: 36415; 74176; 78264; 80053; 80074; 80178; 80305; 81003; 81025; 83605; 83690; 83735; 85025; 87081; 96374; 96375; 96376; 99285; A9541; G0378; J1170; J1200; J1644; J2060; J2405; J2765; J3010; J7030; Q0163

== ENCOUNTER 2020-03-29 10:06 | Emergency (ER) | payer MEDICAID ==
[~2020-03-29] VITALS: Ht 162.6 cm; Wt 80.0 kg
[~2020-03-29 10:06] MED LIST changes: -ACYC-1 PO; -ALBU8.5H8 IH; +AMIT-189 PO; -AZIT500T PO; -BISA10SU60 RC; +BUSP10TA11 PO; -CYCL-1 PO; -DIPH-423 PO; -DOXY-1 PO; +GABA-532 PO; -HYDR-4353 PO; -IBUP-1986 PO; +LURA40TA3 PO; -MAGN296S50 PO; -METH-360 PO; +METO-292 PO; -METO50TA16 PO; -MULT-1085 PO; -MYCO500T PO; -ONDA4TAB6 PO; -ONDA8TAB12 PO; -OXYC-150 PO; -PANT-47 PO; -POSA100T PO; -PRED5SOL25 PO; -PRED5TAB PO; -PROM12.512 PO; -SULF1TAB49 PO; +lithium carbonate PO
[2020-03-29] MEDS ORDERED: ondansetron/PF 4mg/2ml inj IV ONE (11:20)
[2020-03-29] MEDS ORDERED: acetaminophen 325mg tablet PO ONE (11:20)
[2020-03-29] MEDS ORDERED: SUMAtriptan succ. 6 MG/0.5ml vial SQ ONE (11:20)
[2020-03-29] MEDS ORDERED: diphenhydrAMINE 50 mg/ml inj IV ONE ×2 (11:20→14:45)
[2020-03-29 11:57] LABS: BASOPHILS % (AUTO) 1.1 % (0-1); EOSINOPHILS # (AUTO) 0.1 X10'3 (0-0.9); EOSINOPHILS % (AUTO) 2.5 % (0-6); HEMATOCRIT 42.2 % (35.0-45.0); HEMOGLOBIN 14.7 g/dl (12.0-16.0); LYMPHOCYTES # (AUTO) 1.2 X10'3 (1.1-4.8); LYMPHOCYTES % (AUTO) 31.7 % (21-51); MEAN CORPUSCULAR HEMOGLOBIN 33.6 PG (27.0-31.0); MEAN CORPUSCULAR HGB CONC 34.9 g/dL (33.0-36.5); MEAN CORPUSCULAR VOLUME 96.4 FL (78-98); MONOCYTES # (AUTO) 0.3 X10'3 (0-0.9); MONOCYTES % (AUTO) 8.8 % (2-12); NEUTROPHILS # (AUTO) 2.1 X10'3 (1.8-7.7); NEUTROPHILS % (AUTO) 55.9 % (42-75); PLATELET COUNT 146 X10'3 (140-440); RED BLOOD COUNT 4.38 X10'6 (4.20-5.60); RED CELL DISTRIBUTION WIDTH 14.7 % (11.5-14.5); WHITE BLOOD COUNT 3.7 X10'3 (4.5-11.0)
[2020-03-29 12:09] LABS: ALANINE AMINOTRANSFERASE 428 U/L (12-78); ALBUMIN 4.2 G/DL (3.4-5.0); ALBUMIN/GLOBULIN RATIO 1.1 (1.1-1.5); ALKALINE PHOSPHATASE 367 IU/L (46-116); ANION GAP 12 (8-16); ASPARTATE AMINO TRANSFERASE 74 U/L (10-37); BILIRUBIN,TOTAL 0.7 MG/DL (0.1-1.0); BLOOD UREA NITROGEN 13 MG/DL (7-18); CALCIUM 9.8 MG/DL (8.5-10.1); CHLORIDE 102 MMOL/L (99-107); GLUCOSE 99 MG/DL (70-104); SODIUM 139 MMOL/L (135-145)
[2020-03-29] MEDS ORDERED: normal saline 1000ML IV soln IVB ONE (12:10)
--- NOTE | 2020-03-29 12:39 | NUR ---
back from CT via wheelchair at this time.
[2020-03-29 13:17] LABS: BUN/CREATININE RATIO 17.1 (6.6-38.0); CREATININE 0.76 MG/DL (0.40-0.90); eGFR 89 ML/MIN
[2020-03-29] MEDS ORDERED: HYDROmorphone inj. 0.5 MG/0.5 ML DISP.SYRIN IV ONE ×2 (14:00→15:05)
--- NOTE | 2020-03-29 17:10 | NUR ---
to xray at this time.
[2020-03-29 19:15] LABS: GLUCOSE,CSF 56 MG/DL (40-75); TOTAL PROTEIN,CSF 43 MG/DL (15-45)
[2020-03-29 19:51] LABS: APPEARANCE,CSF CLEAR; CSF SUPERNATANT COLOR COLORLESS; CSF VOLUME 17 ML; CSF WBC CT 1 /CU MM (0-5); TUBE# COUNTED 4
[2020-03-29 19:52] LABS: APPEARANCE,CSF CLEAR; CSF RBC 2 /CU MM (0); CSF SUPERNATANT COLOR COLORLESS; CSF VOLUME 17 ML; TUBE# COUNTED 1
[2020-03-29 19:53] LABS: CSF RBC 4 /CU MM (0); CSF WBC CT 2 /CU MM (0-5)
[2020-03-29 20:33] VITALS: BP 153/115
== END 2020-03-29 20:35 | disposition home or self-care (01) ==
LOC: ER 10:07
DX: G43.909 Migraine, unspecified, not intractable, without status migrainosus (principal); G93.2 Benign intracranial hypertension; F31.9 Bipolar disorder, unspecified; F41.9 Anxiety disorder, unspecified; G89.29 Other chronic pain; Z86.69 Personal history of other diseases of the nervous system and sense organs; Z90.49 Acquired absence of other specified parts of digestive tract; Z90.710 Acquired absence of both cervix and uterus; Z98.890 Other specified postprocedural states; Z88.5 Allergy status to narcotic agent; Z88.8 Allergy status to other drugs, medicaments and biological substances; Z79.899 Other long term (current) drug therapy
CPT/HCPCS: 36415; 70450; 80053; 82945; 84157; 85025; 85610; 87015; 87070; 89051; 96361; 96372; 96374; 96375; 96376; 99285; J1170; J1200; J2405; J7030; J3030

== ENCOUNTER 2020-07-19 14:23 | Emergency (ER) | payer MEDICAID ==
[~2020-07-19] VITALS: Ht 162.6 cm; Wt 88.8 kg
[2020-07-19 14:29] VITALS: BP 157/100
[2020-07-19] MEDS ORDERED: HYDROcodone/acetaminophen 5mg/325mg tablet PO ONE (17:25)
[2020-07-19] MEDS ORDERED: HYDR-3965 PO (17:28)
== END 2020-07-19 17:42 | disposition home or self-care (01) ==
LOC: ER 14:23
DX: R10.84 Generalized abdominal pain (principal); R11.2 Nausea with vomiting, unspecified; G89.29 Other chronic pain; F41.9 Anxiety disorder, unspecified; F31.9 Bipolar disorder, unspecified; Z86.69 Personal history of other diseases of the nervous system and sense organs; Z86.2 Personal history of diseases of the blood and blood-forming organs and certain disorders involving the immune mechanism; Z87.01 Personal history of pneumonia (recurrent); Z90.49 Acquired absence of other specified parts of digestive tract; Z90.710 Acquired absence of both cervix and uterus; Z98.890 Other specified postprocedural states; Z88.6 Allergy status to analgesic agent; Z88.5 Allergy status to narcotic agent; Z88.1 Allergy status to other antibiotic agents; Z88.8 Allergy status to other drugs, medicaments and biological substances; Z79.899 Other long term (current) drug therapy
CPT/HCPCS: 99283

== ENCOUNTER 2020-08-31 11:43 | Outpatient (CLI) | payer MEDICAID | END 2020-08-31 23:59 | disposition home or self-care (01) | LOC: RAD 11:43 | PROVIDERS: ATTEND Surgery | DX: R10.9 Unspecified abdominal pain (principal); Z90.49 Acquired absence of other specified parts of digestive tract | CPT/HCPCS: 76705 ==

== ENCOUNTER 2020-09-20 12:07 | Emergency (ER) | payer MEDICAID ==
[~2020-09-20] VITALS: Ht 162.6 cm; Wt 90.9 kg
[2020-09-20] MEDS ORDERED: normal saline 1000ML IV soln IVB ONE (12:30)
[2020-09-20] MEDS ORDERED: diphenhydrAMINE 50 mg/ml inj IV ONE (12:55)
[2020-09-20] MEDS ORDERED: famotidine/PF 10 mg/ml inj IV ONE (12:55)
[2020-09-20] MEDS ORDERED: IOHEXOL 12MG/ML oral solution 500 ML BOTTLE PO ONE (12:55)
[2020-09-20] MEDS ORDERED: methylPREDNISolone sod succ 125mg/2ml vial IV ONE (12:55)
[2020-09-20 13:03] LABS: BASOPHILS % (AUTO) 0.4 % (0-1); EOSINOPHILS % (AUTO) 0.6 % (0-6); HEMATOCRIT 45.5 % (35.0-45.0); HEMOGLOBIN 15.3 g/dl (12.0-16.0); LYMPHOCYTES # (AUTO) 1.6 X10'3 (1.1-4.8); MEAN CORPUSCULAR HGB CONC 33.6 g/dL (33.0-36.5); MEAN CORPUSCULAR VOLUME 92.3 FL (78-98); MEAN PLATELET VOLUME 7.5 FL (7.4-10.4); MONOCYTES # (AUTO) 0.3 X10'3 (0-0.9); MONOCYTES % (AUTO) 5.4 % (2-12); NEUTROPHILS # (AUTO) 4.4 X10'3 (1.8-7.7); NEUTROPHILS % (AUTO) 68.6 % (42-75); PLATELET COUNT 149 X10'3 (140-440); RED BLOOD COUNT 4.93 X10'6 (4.20-5.60); RED CELL DISTRIBUTION WIDTH 14.2 % (11.5-14.5); WHITE BLOOD COUNT 6.5 X10'3 (4.5-11.0)
[2020-09-20 13:18] LABS: ALANINE AMINOTRANSFERASE 250 U/L (12-78); ALBUMIN 4.9 G/DL (3.4-5.0); ALBUMIN/GLOBULIN RATIO 1.3 (1.1-1.5); ALKALINE PHOSPHATASE 543 IU/L (46-116); ANION GAP 15 (8-16); ASPARTATE AMINO TRANSFERASE 53 U/L (10-37); BILIRUBIN,TOTAL 0.8 MG/DL (0.1-1.0); BLOOD UREA NITROGEN 14 MG/DL (7-18); BUN/CREATININE RATIO 16.9 (6.6-38.0); CALCIUM 10.1 MG/DL (8.5-10.1); CHLORIDE 103 MMOL/L (99-107); CREATININE 0.83 MG/DL (0.40-0.90); GLUCOSE 89 MG/DL (70-104); POTASSIUM 3.9 MMOL/L (3.5-5.1); SODIUM 141 MMOL/L (135-145); TOTAL CARBON DIOXIDE 23.5 MMOL/L (24-32); TOTAL PROTEIN 8.8 G/DL (6.4-8.2); eGFR 81 ML/MIN
--- NOTE | 2020-09-20 14:44 | NUR ---
relieving RN for break, pt sitting on edge of bed, waiting to go to CT
[2020-09-20] MEDS ORDERED: iohexol 300mg/ml 100ml inj. ONE (14:53)
[2020-09-20] MEDS ORDERED: OXYC-150 PO (16:17)
[2020-09-20 16:24] VITALS: BP 156/102
== END 2020-09-20 16:29 | disposition home or self-care (01) ==
LOC: ER 12:07
DX: R10.84 Generalized abdominal pain (principal); R11.2 Nausea with vomiting, unspecified; R19.7 Diarrhea, unspecified; K46.9 Unspecified abdominal hernia without obstruction or gangrene; G89.29 Other chronic pain; F41.9 Anxiety disorder, unspecified; F31.9 Bipolar disorder, unspecified; Z86.69 Personal history of other diseases of the nervous system and sense organs; Z86.2 Personal history of diseases of the blood and blood-forming organs and certain disorders involving the immune mechanism; Z87.01 Personal history of pneumonia (recurrent); Z90.49 Acquired absence of other specified parts of digestive tract; Z90.710 Acquired absence of both cervix and uterus; Z98.890 Other specified postprocedural states; Z88.5 Allergy status to narcotic agent; Z88.6 Allergy status to analgesic agent; Z88.1 Allergy status to other antibiotic agents; Z88.8 Allergy status to other drugs, medicaments and biological substances; Z79.899 Other long term (current) drug therapy
CPT/HCPCS: 36415; 74177; 80053; 85025; 96361; 96374; 96375; 99285; J1200; J2930; J3490; J7030; Q9967

== ENCOUNTER 2022-01-27 12:24 | Emergency (ER) | payer MEDICAID ==
[~2022-01-27] VITALS: Ht 162.6 cm; Wt 78.6 kg
[~2022-01-27 12:24] MED LIST changes: +LURA40TA2 PO; -LURA40TA3 PO; +OXYC-150 PO
[2022-01-27] MEDS ORDERED: valproate sod inj 1,000 MG in normal saline 50ml IV soln 50 ML IV STA (14:27)
[2022-01-27] MEDS ORDERED: diazepam inj 5 MG/ML inj. IV ONE ×2 (14:30→16:15)
[2022-01-27] MEDS ORDERED: metoclopramide 5 mg/ml inj IV ONE (14:30)
[2022-01-27] MEDS ORDERED: diphenhydrAMINE 50 mg/ml inj IV ONE (14:30)
[2022-01-27] MEDS ORDERED: normal saline 1000ml 1,000 ML IV ONE (14:30)
[2022-01-27] MEDS ORDERED: SUMAtriptan succ. 6 MG/0.5ml vial SQ ONE (16:15)
[2022-01-27] MEDS ORDERED: HYDROcodone/acetaminophen 10/325mg tab PO ONE (16:20)
[2022-01-27 17:09] VITALS: BP 114/84
[2022-01-27] MEDS ORDERED: ONDA4TAB12 PO (17:18)
[2022-01-27] MEDS ORDERED: HYDR-3965 PO (17:18)
[2022-01-27] MEDS ORDERED: DIAZ5TAB22 PO (17:18)
== END 2022-01-27 18:05 | disposition home or self-care (01) ==
LOC: ER 12:25
DX: G43.909 Migraine, unspecified, not intractable, without status migrainosus (principal); M54.50 Low back pain, unspecified; G89.29 Other chronic pain; Z88.1 Allergy status to other antibiotic agents; Z88.5 Allergy status to narcotic agent; Z88.6 Allergy status to analgesic agent; Z90.49 Acquired absence of other specified parts of digestive tract; Z90.710 Acquired absence of both cervix and uterus
CPT/HCPCS: 96361; 96372; 96374; 96375; 96376; 99284; J1200; J2765; J3030; J3360; J7030

== ENCOUNTER 2022-02-02 13:17 | Emergency (ER) | payer MEDICAID ==
[~2022-02-02] VITALS: Ht 162.6 cm; Wt 80.0 kg
[~2022-02-02 13:17] MED LIST changes: +DIAZ5TAB22 PO; +HYDR-3965 PO; +ONDA4TAB12 PO
[2022-02-02] MEDS ORDERED: metoclopramide 5 mg/ml inj IV ONE (14:30)
[2022-02-02] MEDS ORDERED: SUMAtriptan succ. 6 MG/0.5ml vial SQ ONE (14:30)
[2022-02-02] MEDS ORDERED: diphenhydrAMINE 50 mg/ml inj IV ONE (14:30)
[2022-02-02] MEDS ORDERED: diazepam inj 5 MG/ML inj. IV ONE (14:30)
[2022-02-02] MEDS ORDERED: normal saline 1000ml 1,000 ML IV ONE (14:30)
[2022-02-02] MEDS ORDERED: ondansetron/PF 4mg/2ml inj IV ONE (17:15)
[2022-02-02] MEDS ORDERED: HYDROcodone/acetaminophen 10/325mg tab PO ONE (17:15)
[2022-02-02 17:33] VITALS: BP 115/84
== END 2022-02-02 17:34 | disposition home or self-care (01) ==
LOC: ER 13:18
DX: G43.909 Migraine, unspecified, not intractable, without status migrainosus (principal); D64.9 Anemia, unspecified; G89.29 Other chronic pain; M54.9 Dorsalgia, unspecified; F31.9 Bipolar disorder, unspecified; Z98.890 Other specified postprocedural states; Z88.6 Allergy status to analgesic agent; Z88.5 Allergy status to narcotic agent; Z79.899 Other long term (current) drug therapy; Z88.8 Allergy status to other drugs, medicaments and biological substances; Z79.1 Long term (current) use of non-steroidal anti-inflammatories (NSAID); Z79.2 Long term (current) use of antibiotics
CPT/HCPCS: 70450; 96361; 96372; 96374; 96375; 99285; J1200; J2405; J2765; J3030; J3360; J7030

== ENCOUNTER 2022-02-12 13:36 | Emergency (ER) | payer MEDICAID ==
[~2022-02-12] VITALS: Ht 162.6 cm; Wt 80.0 kg
[2022-02-12] MEDS ORDERED: diazepam inj 5 MG/ML inj. IV ONE (20:35)
[2022-02-12] MEDS ORDERED: normal saline 1000ML IV soln IVB ONE (20:35)
[2022-02-12] MEDS ORDERED: metoclopramide 5 mg/ml inj IV ONE (20:35)
[2022-02-12] MEDS ORDERED: diphenhydrAMINE 50 mg/ml inj IV ONE (20:35)
--- NOTE | 2022-02-12 22:14 | NUR ---
PT REPORTS NO RELIEF. I SPOKE TO PROVIDER. SHE WILL WRITE UP ORDERS.
[2022-02-12] MEDS ORDERED: SUMAtriptan succ. 6 MG/0.5ml vial SQ ONE (22:20)
[2022-02-12] MEDS ORDERED: haloperidol lactate 5mg/ml inj IM ONE (22:30)
[2022-02-12 23:47] VITALS: BP 129/93
== END 2022-02-12 23:48 | disposition home or self-care (01) ==
LOC: ER 13:40
DX: R51.9 Headache, unspecified (principal); R42 Dizziness and giddiness; H53.8 Other visual disturbances; G89.29 Other chronic pain; F41.9 Anxiety disorder, unspecified; F31.9 Bipolar disorder, unspecified; Z86.69 Personal history of other diseases of the nervous system and sense organs; Z87.01 Personal history of pneumonia (recurrent); Z86.2 Personal history of diseases of the blood and blood-forming organs and certain disorders involving the immune mechanism; Z90.49 Acquired absence of other specified parts of digestive tract; Z90.710 Acquired absence of both cervix and uterus; Z98.890 Other specified postprocedural states; Z88.6 Allergy status to analgesic agent; Z88.5 Allergy status to narcotic agent; Z88.8 Allergy status to other drugs, medicaments and biological substances; Z79.899 Other long term (current) drug therapy
CPT/HCPCS: 96361; 96372; 96374; 96375; 99285; J1200; J1630; J2765; J3030; J3360; J7030

== ENCOUNTER 2022-02-27 11:34 | Emergency (ER) | payer MEDICAID ==
[~2022-02-27] VITALS: Ht 162.6 cm; Wt 78.6 kg
[2022-02-27 12:10] VITALS: BP 124/106
[2022-02-27] MEDS ORDERED: SUMAtriptan succ. 6 MG/0.5ml vial SQ ONE (13:45)
[2022-02-27] MEDS ORDERED: metoclopramide 5 mg/ml inj IV ONE (13:45)
[2022-02-27] MEDS ORDERED: diazepam inj 5 MG/ML inj. IV ONE (13:45)
[2022-02-27] MEDS ORDERED: diphenhydrAMINE 50 mg/ml inj IM ONE (13:45)
[2022-02-27] MEDS ORDERED: normal saline 1000ML IV soln IVB ONE (13:45)
[2022-02-27] MEDS ORDERED: proparacaine 0.5% ophthalmic drops 15ml EACHEYE ONE ×2 (14:20→14:33)
[2022-02-27] MEDS ORDERED: diphenhydrAMINE 50 mg/ml inj IV ONE (14:25)
[2022-02-27] MEDS ORDERED: HYDROcodone/acetaminophen 5mg/325mg tablet PO ONE (14:30)
[2022-02-27] MEDS ORDERED: HYDR-3965 PO (16:15)
[2022-02-27] MEDS ORDERED: ONDA8TAB13 PO (16:15)
== END 2022-02-27 16:24 | disposition home or self-care (01) ==
LOC: ER 11:34
DX: G43.909 Migraine, unspecified, not intractable, without status migrainosus (principal); H57.11 Ocular pain, right eye; G89.29 Other chronic pain; M54.9 Dorsalgia, unspecified; F31.9 Bipolar disorder, unspecified; Z88.6 Allergy status to analgesic agent; Z79.899 Other long term (current) drug therapy; Z79.1 Long term (current) use of non-steroidal anti-inflammatories (NSAID); Z79.2 Long term (current) use of antibiotics
CPT/HCPCS: 96361; 96372; 96374; 96375; 99284; J1200; J2765; J3030; J3360; J7030

== ENCOUNTER 2022-03-29 14:57 | Emergency (ER) | payer MEDICAID ==
[~2022-03-29] VITALS: Ht 162.6 cm; Wt 79.0 kg
[~2022-03-29 14:57] MED LIST changes: -DIAZ5TAB22 PO; -HYDR-3965 PO; +ONDA8TAB13 PO
[2022-03-29] MEDS ORDERED: ondansetron/PF 4mg/2ml inj IV ONE (15:20)
[2022-03-29] MEDS ORDERED: normal saline 1000ML IV soln IVB ONE (15:20)
--- NOTE | 2022-03-29 15:50 | NUR ---
Pt difficult IV start, currently RN attempting ultrasound guided IV in.
[2022-03-29] MEDS ORDERED: fentaNYL/PF 50MCG/1 ML 2ML syringe IV ONE ×3 (15:55→18:35)
--- NOTE | 2022-03-29 16:00 | NUR ---
Pt with IV start to L foot.
--- NOTE | 2022-03-29 16:10 | NUR ---
Pt taken to CT.
--- NOTE | 2022-03-29 16:30 | NUR ---
Received VO from Dr. Osorio to remove C-colar, pt is also taken off trauma status per Dr. Osorio.
[2022-03-29] MEDS ORDERED: diphenhydrAMINE 50 mg/ml inj IV ONE (16:40)
[2022-03-29] MEDS ORDERED: HYDROcodone/acetaminophen 10/325mg tab PO ONE (16:50)
[2022-03-29] MEDS ORDERED: ONDA4TAB12 PO (18:28)
[2022-03-29] MEDS ORDERED: HYDR-3972 PO (18:28)
[2022-03-29] MEDS ORDERED: ORPH100T2 PO (18:31)
[2022-03-29] MEDS ORDERED: orphenadrine citrate 60mg/2ml inj. IM ONE (18:35)
[2022-03-29 19:16] VITALS: BP 115/84
== END 2022-03-29 19:19 | disposition home or self-care (01) ==
LOC: ER 14:59
DX: S40.011A Contusion of right shoulder, initial encounter (principal); S40.211A Abrasion of right shoulder, initial encounter; S13.9XXA Sprain of joints and ligaments of unspecified parts of neck, initial encounter; S09.90XA Unspecified injury of head, initial encounter; R11.2 Nausea with vomiting, unspecified; G89.29 Other chronic pain; F41.9 Anxiety disorder, unspecified; F31.9 Bipolar disorder, unspecified; Z86.69 Personal history of other diseases of the nervous system and sense organs; Z87.01 Personal history of pneumonia (recurrent); Z86.2 Personal history of diseases of the blood and blood-forming organs and certain disorders involving the immune mechanism; Z90.49 Acquired absence of other specified parts of digestive tract; Z90.710 Acquired absence of both cervix and uterus; Z98.890 Other specified postprocedural states; Z88.6 Allergy status to analgesic agent; Z88.5 Allergy status to narcotic agent; Z88.1 Allergy status to other antibiotic agents; Z79.899 Other long term (current) drug therapy; W19.XXXA Unspecified fall, initial encounter; Y92.89 Other specified places as the place of occurrence of the external cause; Y93.89 Activity, other specified; Y99.8 Other external cause status
CPT/HCPCS: 70450; 70486; 71045; 72125; 73030; 96372; 96374; 96375; 96376; 99284; J1200; J2360; J2405; J3010; J7030; L0172; A4565

== ENCOUNTER 2022-08-29 17:10 | Emergency (ER) | payer MEDICAID ==
[~2022-08-29] VITALS: Ht 162.6 cm; Wt 85.0 kg
[~2022-08-29 17:10] MED LIST changes: -AMIT-189 PO; +AMIT-286 PO; +ORPH100T2 PO
[2022-08-29 17:19] VITALS: BP 140/10
[2022-08-29] MEDS ORDERED: HYDR-3965 PO ×2 (18:32→19:33)
[2022-08-29] MEDS ORDERED: IBUP-1986 PO ×2 (18:32→19:34)
[2022-08-29] MEDS ORDERED: HYDROcodone/acetaminophen 10/325mg tab PO ONE (18:35)
== END 2022-08-29 19:22 | disposition home or self-care (01) ==
LOC: ER 17:11
DX: S62.633A Displaced fracture of distal phalanx of left middle finger, initial encounter for closed fracture (principal); G89.29 Other chronic pain; M54.50 Low back pain, unspecified; F31.9 Bipolar disorder, unspecified; Z88.5 Allergy status to narcotic agent; Z88.8 Allergy status to other drugs, medicaments and biological substances; Z88.1 Allergy status to other antibiotic agents; Z90.49 Acquired absence of other specified parts of digestive tract; Z90.710 Acquired absence of both cervix and uterus; X58.XXXA Exposure to other specified factors, initial encounter; Y93.89 Activity, other specified; Y92.89 Other specified places as the place of occurrence of the external cause; Y99.8 Other external cause status
CPT/HCPCS: 29130; 73130; 99284; A6449

== ENCOUNTER 2022-09-01 12:03 | Emergency (ER) | payer MEDICAID ==
[~2022-09-01] VITALS: Ht 162.6 cm; Wt 85.0 kg
[~2022-09-01 12:03] MED LIST changes: +HYDR-3965 PO; +IBUP-1986 PO
[2022-09-01 12:35] VITALS: BP 138/108
[2022-09-01] MEDS ORDERED: HYDR-3965 PO (15:01)
== END 2022-09-01 18:51 | disposition home or self-care (01) ==
LOC: ER 12:04
DX: S62.633D Displaced fracture of distal phalanx of left middle finger, subsequent encounter for fracture with routine healing (principal); G89.29 Other chronic pain; F41.9 Anxiety disorder, unspecified; F31.9 Bipolar disorder, unspecified; Z90.49 Acquired absence of other specified parts of digestive tract; Z90.710 Acquired absence of both cervix and uterus; Z95.1 Presence of aortocoronary bypass graft; Z88.6 Allergy status to analgesic agent; Z88.5 Allergy status to narcotic agent; Z88.8 Allergy status to other drugs, medicaments and biological substances; Z79.899 Other long term (current) drug therapy; X58.XXXD Exposure to other specified factors, subsequent encounter
CPT/HCPCS: 99283; A6410

== ENCOUNTER 2022-12-29 10:47 | Emergency (ER) | payer MEDICAID ==
[~2022-12-29] VITALS: Ht 162.6 cm; Wt 77.2 kg
[~2022-12-29 10:47] MED LIST changes: -HYDR-3965 PO; -ORPH100T2 PO; +ORPH100T4 PO
[2022-12-29 10:49] VITALS: BP 148/98; PULSE 108; RESP 16; TEMP 97.7; O2SAT 98
[2022-12-29] MEDS ORDERED: metoclopramide 5 mg/ml inj IV ONE (12:20)
[2022-12-29] MEDS ORDERED: diazepam inj 5 MG/ML inj. IV ONE (12:20)
[2022-12-29] MEDS ORDERED: normal saline 1000ml 1,000 ML IV ONE (12:20)
[2022-12-29] MEDS ORDERED: diphenhydrAMINE 50 mg/ml inj IV ONE (13:35)
[2022-12-29] MEDS ORDERED: RIME75TA SL (13:52)
[2022-12-29] MEDS ORDERED: cyclobenzaprine 10mg tablet PO ONE (14:20)
== END 2022-12-29 15:00 | disposition home or self-care (01) ==
LOC: ER 10:48
DX: G43.919 Migraine, unspecified, intractable, without status migrainosus (principal); M54.2 Cervicalgia; G43.909 Migraine, unspecified, not intractable, without status migrainosus; G89.29 Other chronic pain; M54.9 Dorsalgia, unspecified; F31.9 Bipolar disorder, unspecified; F32.A Depression, unspecified; Z79.899 Other long term (current) drug therapy; Z88.6 Allergy status to analgesic agent; W19.XXXA Unspecified fall, initial encounter; Y93.89 Activity, other specified; Y92.89 Other specified places as the place of occurrence of the external cause; Y99.8 Other external cause status
CPT/HCPCS: 70450; 72125; 96361; 96374; 96375; 99285; J1200; J2765; J3360; J7030; L0172

== ENCOUNTER 2023-01-20 16:28 | Emergency (ER) | payer MEDICAID ==
[~2023-01-20] VITALS: Ht 162.6 cm; Wt 90.9 kg
[~2023-01-20 16:28] MED LIST changes: +RIME75TA SL
[2023-01-20 17:16] VITALS: BP 145/105; PULSE 117; TEMP 97.8; O2SAT 98
[2023-01-20] MEDS ORDERED: ondansetron 4mg rapidly disintigrating tab PO ONE (19:35)
[2023-01-20] MEDS ORDERED: diphenhydrAMINE 50 mg/ml inj IM ONE (19:35)
[2023-01-20] MEDS ORDERED: morphine 10mg/ml inj. IM ONE (19:40)
[2023-01-20 19:50] VITALS: RESP 18
[2023-01-20] MEDS ORDERED: PRED20TA PO (19:51)
[2023-01-20] MEDS ORDERED: CYCL-1 PO (19:51)
== END 2023-01-20 20:45 | disposition home or self-care (01) ==
LOC: ER 16:29
DX: S29.012A Strain of muscle and tendon of back wall of thorax, initial encounter (principal); Z88.6 Allergy status to analgesic agent; G89.29 Other chronic pain; F41.9 Anxiety disorder, unspecified; M54.9 Dorsalgia, unspecified; G43.909 Migraine, unspecified, not intractable, without status migrainosus; Z88.5 Allergy status to narcotic agent; X58.XXXA Exposure to other specified factors, initial encounter; Y93.89 Activity, other specified; Y92.89 Other specified places as the place of occurrence of the external cause; Y99.8 Other external cause status
CPT/HCPCS: 72074; 96372; 99284; J1200; J2274

== ENCOUNTER 2023-04-04 09:38 | Emergency (ER) | payer MEDICAID ==
[~2023-04-04] VITALS: Ht 162.6 cm; Wt 81.5 kg
[~2023-04-04 09:38] MED LIST changes: -AMIT-286 PO; +AMIT-311 PO; +CYCL-1 PO
[2023-04-04] MEDS ORDERED: naproxen 500mg tablet PO ONE (10:15)
--- NOTE | 2023-04-04 10:16 | NUR ---
MSE COMPLETED BY GEETHA CASTILLO
[2023-04-04] MEDS ORDERED: AMOX-117 PO (10:30)
[2023-04-04] MEDS ORDERED: NAPR-56 PO (10:30)
[2023-04-04] MEDS ORDERED: oxyCODONE/APAP 5-325mg tablet PO ONE (10:45)
--- NOTE | 2023-04-04 11:09 | NUR ---
I have reviewed and agree with all interventions, assessments performed and documented by ASSEMBLER CARBON BRUSHES
[2023-04-04 11:11] VITALS: BP 127/103; PULSE 117; RESP 18; TEMP 97.7; O2SAT 98
== END 2023-04-04 11:14 | disposition home or self-care (01) ==
LOC: ER 09:38
DX: J02.9 Acute pharyngitis, unspecified (principal); J32.9 Chronic sinusitis, unspecified; G43.909 Migraine, unspecified, not intractable, without status migrainosus; G89.29 Other chronic pain; Z90.49 Acquired absence of other specified parts of digestive tract; Z90.710 Acquired absence of both cervix and uterus; Z95.5 Presence of coronary angioplasty implant and graft; Z94.81 Bone marrow transplant status; Z85.6 Personal history of leukemia; Z79.899 Other long term (current) drug therapy; Z88.5 Allergy status to narcotic agent; Z88.8 Allergy status to other drugs, medicaments and biological substances
CPT/HCPCS: 99283

== ENCOUNTER 2023-05-08 09:01 | Emergency (ER) | payer MEDICAID ==
[~2023-05-08] VITALS: Ht 162.6 cm; Wt 83.9 kg
[2023-05-08 09:32] LABS: BILIRUBIN,URINE NEGATIVE (Neg); CLARITY,URINE CLEAR (Clear); COLOR,URINE YELLOW (Yellow); GLUCOSE, URINE NEGATIVE (Neg); KETONES,URINE NEGATIVE (Neg); LEUKOCYTE ESTERASE ,URINE NEGATIVE (Neg); NITRITES, URINE NEGATIVE (Neg); OCCULT BLOOD,URINE NEGATIVE (Neg); PROTEIN,URINE NEGATIVE (Neg); UROBILINOGEN,URINE 0.2 E.U/dL (0.2-1.0)
[2023-05-08 09:34] LABS: UA COLLECTION TYPE CLN CATCH MIDSTREAM; URINE HCG NEGATIVE (NEG)
[2023-05-08] MEDS ORDERED: dexamethasone sod phosphate 10mg/ml inj IM STA (10:10)
[2023-05-08] MEDS ORDERED: LIDOcaine 5% patch TP ONE (10:10)
[2023-05-08] MEDS ORDERED: HYDROcodone/acetaminophen 10/325mg tab PO ONE (10:10)
[2023-05-08] MEDS ORDERED: ACET-2 PO (11:02)
[2023-05-08 11:12] LABS: BASOPHILS % (AUTO) 0.8 % (0-1); EOSINOPHILS # (AUTO) 0.1 X10'3 (0-0.9); EOSINOPHILS % (AUTO) 2.1 % (0-6); HEMATOCRIT 37.5 % (35.0-45.0); HEMOGLOBIN 13.1 g/dl (12.0-16.0); LYMPHOCYTES # (AUTO) 1.2 X10'3 (1.1-4.8); LYMPHOCYTES % (AUTO) 35.3 % (21-51); MEAN CORPUSCULAR HEMOGLOBIN 31.9 PG (27.0-31.0); MEAN CORPUSCULAR HGB CONC 34.9 g/dL (33.0-36.5); MEAN CORPUSCULAR VOLUME 91.5 FL (78-98); MEAN PLATELET VOLUME 6.7 FL (7.4-10.4); MONOCYTES # (AUTO) 0.2 X10'3 (0-0.9); MONOCYTES % (AUTO) 6.5 % (2-12); NEUTROPHILS # (AUTO) 1.9 X10'3 (1.8-7.7); NEUTROPHILS % (AUTO) 55.3 % (42-75); PLATELET COUNT 115 X10'3 (140-440); RED CELL DISTRIBUTION WIDTH 14.4 % (11.5-14.5); WHITE BLOOD COUNT 3.5 X10'3 (4.5-11.0)
[2023-05-08 11:15] VITALS: BP 135/99; PULSE 101; RESP 16; TEMP 97.7; O2SAT 96
[2023-05-08 11:25] LABS: ALANINE AMINOTRANSFERASE 168 U/L (12-78); ALBUMIN 3.9 G/DL (3.4-5.0); ALBUMIN/GLOBULIN RATIO 1.1 (1.1-1.5); ALKALINE PHOSPHATASE 271 IU/L (46-116); ANION GAP 8 (8-16); ASPARTATE AMINO TRANSFERASE 64 U/L (10-37); BILIRUBIN,TOTAL 0.8 MG/DL (0.1-1.0); BLOOD UREA NITROGEN 13 MG/DL (7-18); CALCIUM 8.9 MG/DL (8.5-10.1); CHLORIDE 102 MMOL/L (99-107); CREATININE 0.81 MG/DL (0.40-0.90); GLUCOSE 93 MG/DL (70-104); LIPASE 54 U/L (16-77); SODIUM 135 MMOL/L (135-145); TOTAL CARBON DIOXIDE 25.2 MMOL/L (24-32); TOTAL PROTEIN 7.4 G/DL (6.4-8.2); eCRCL 85 ML/MIN; eGFR 81 ML/MIN
== END 2023-05-08 11:19 | disposition home or self-care (01) ==
LOC: ER 09:02
DX: M54.50 Low back pain, unspecified (principal); G43.909 Migraine, unspecified, not intractable, without status migrainosus; G89.29 Other chronic pain; F41.9 Anxiety disorder, unspecified; F31.9 Bipolar disorder, unspecified; Z90.710 Acquired absence of both cervix and uterus; Z95.1 Presence of aortocoronary bypass graft; Z90.49 Acquired absence of other specified parts of digestive tract; Z88.6 Allergy status to analgesic agent; Z88.1 Allergy status to other antibiotic agents; Z79.899 Other long term (current) drug therapy; Z88.5 Allergy status to narcotic agent
CPT/HCPCS: 36415; 80053; 81003; 81025; 83690; 85025; 96372; 99283; J1100

== ENCOUNTER 2023-05-11 08:52 | Emergency (ER) | payer MEDICAID ==
[~2023-05-11] VITALS: Ht 162.6 cm; Wt 84.0 kg
[~2023-05-11 08:52] MED LIST changes: +ACET-2 PO
[2023-05-11 09:59] LABS: URINE HCG NEGATIVE (NEG)
[2023-05-11 10:03] LABS: BILIRUBIN,URINE SMALL (Neg); CLARITY,URINE SLIGHTLY CLOUDY (Clear); COLOR,URINE YELLOW (Yellow); GLUCOSE, URINE NEGATIVE (Neg); KETONES,URINE NEGATIVE (Neg); LEUKOCYTE ESTERASE ,URINE NEGATIVE (Neg); NITRITES, URINE NEGATIVE (Neg); OCCULT BLOOD,URINE NEGATIVE (Neg); PROTEIN,URINE NEGATIVE (Neg)
[2023-05-11 10:04] LABS: UA COLLECTION TYPE CLN CATCH MIDSTREAM
[2023-05-11 10:16] LABS: BACTERIA,URINE NONE SEEN /HPF (Neg); RBC,URINE NONE SEEN /HPF (0-2); SQUAMOUS EPITHELIAL CELL,UR FEW /LPF (FEW); WBC,URINE 0-4 /HPF (0-4)
[2023-05-11] MEDS ORDERED: HYDROcodone/acetaminophen 5mg/325mg tablet PO ONE (11:10)
[2023-05-11] MEDS ORDERED: normal saline 1000ml 1,000 ML IV ONE (11:10)
[2023-05-11] MEDS ORDERED: ketorolac tromethamine 15mg/ml inj. IV ONE (11:10)
[2023-05-11 11:45] LABS: BASOPHILS % (AUTO) 0.7 % (0-1); EOSINOPHILS # (AUTO) 0.1 X10'3 (0-0.9); EOSINOPHILS % (AUTO) 1.8 % (0-6); HEMATOCRIT 42.9 % (35.0-45.0); HEMOGLOBIN 14.7 g/dl (12.0-16.0); LYMPHOCYTES # (AUTO) 1.2 X10'3 (1.1-4.8); LYMPHOCYTES % (AUTO) 28.6 % (21-51); MEAN CORPUSCULAR HEMOGLOBIN 31.8 PG (27.0-31.0); MEAN CORPUSCULAR HGB CONC 34.3 g/dL (33.0-36.5); MEAN CORPUSCULAR VOLUME 92.8 FL (78-98); MEAN PLATELET VOLUME 7.1 FL (7.4-10.4); MONOCYTES # (AUTO) 0.3 X10'3 (0-0.9); MONOCYTES % (AUTO) 7.9 % (2-12); NEUTROPHILS # (AUTO) 2.6 X10'3 (1.8-7.7); PLATELET COUNT 145 X10'3 (140-440); RED BLOOD COUNT 4.63 X10'6 (4.20-5.60); RED CELL DISTRIBUTION WIDTH 14.7 % (11.5-14.5); WHITE BLOOD COUNT 4.3 X10'3 (4.5-11.0)
[2023-05-11 11:53] LABS: ALANINE AMINOTRANSFERASE 688 U/L (12-78); ALBUMIN 4.1 G/DL (3.4-5.0); ALKALINE PHOSPHATASE 370 IU/L (46-116); ANION GAP 12 (8-16); ASPARTATE AMINO TRANSFERASE 230 U/L (10-37); BILIRUBIN,TOTAL 1.5 MG/DL (0.1-1.0); BLOOD UREA NITROGEN 12 MG/DL (7-18); BUN/CREATININE RATIO 15.8 (10.0-20.0); CALCIUM 9.4 MG/DL (8.5-10.1); CHLORIDE 102 MMOL/L (99-107); CREATININE 0.76 MG/DL (0.40-0.90); GLUCOSE 98 MG/DL (70-104); POTASSIUM 4.2 MMOL/L (3.5-5.1); SODIUM 135 MMOL/L (135-145); TOTAL CARBON DIOXIDE 21.1 MMOL/L (24-32); TOTAL PROTEIN 8.1 G/DL (6.4-8.2); eCRCL 91 ML/MIN; eGFR 88 ML/MIN
[2023-05-11] MEDS ORDERED: HYDROmorphone 1 mg/ml syringe IV ONE ×3 (13:35→18:30)
[2023-05-11 13:58] LABS: URINE AMPHETAMINE SCREEN NEGATIVE (Neg); URINE BARBITUATE SCREEN NEGATIVE (Neg); URINE BENZODIAZEPINES SCREEN NEGATIVE (Neg); URINE CANNABINOID SCREEN NEGATIVE (Neg); URINE COCAINE SCREEN NEGATIVE (Neg); URINE METHADONE SCREEN NEGATIVE (Neg); URINE OPIATE SCREEN POSITIVE (Neg); URINE PHENCYCLIDINE SCREEN NEGATIVE (Neg)
[2023-05-11] MEDS ORDERED: MAGCITRATE PO (19:10)
[2023-05-11] MEDS ORDERED: BISA10SU60 RC (19:13)
[2023-05-11 19:28] VITALS: BP 141/98; PULSE 98; RESP 16; TEMP 97.6; O2SAT 97
== END 2023-05-11 19:32 | disposition home or self-care (01) ==
LOC: ER 08:53
DX: K59.00 Constipation, unspecified (principal); R79.89 Other specified abnormal findings of blood chemistry; G43.909 Migraine, unspecified, not intractable, without status migrainosus; G89.29 Other chronic pain; H91.90 Unspecified hearing loss, unspecified ear; Z87.891 Personal history of nicotine dependence; Z95.5 Presence of coronary angioplasty implant and graft; Z90.710 Acquired absence of both cervix and uterus; Z90.49 Acquired absence of other specified parts of digestive tract; Z79.899 Other long term (current) drug therapy; Z88.8 Allergy status to other drugs, medicaments and biological substances; Z88.5 Allergy status to narcotic agent
CPT/HCPCS: 36415; 74176; 76700; 80053; 80305; 81001; 81025; 85025; 96361; 96374; 96376; 99285; J1170; J7030

== ENCOUNTER 2023-08-21 12:47 | Emergency (ER) | payer MEDICAID ==
[~2023-08-21] VITALS: Ht 162.6 cm; Wt 81.0 kg
[~2023-08-21 12:47] MED LIST changes: -ACET-2 PO; +BISA10SU60 RC; -CLON-528 PO; +CLON0.5T2 PO; +MAGCITRATE PO
[2023-08-21 13:38] VITALS: BP 122/99; PULSE 105; RESP 18; TEMP 97.9; O2SAT 98
[2023-08-21] MEDS ORDERED: acetaminophen 325mg tablet PO ONE (14:35)
== END 2023-08-21 14:46 | disposition home or self-care (01) ==
LOC: ER 12:48
DX: S62.622A Displaced fracture of middle phalanx of right middle finger, initial encounter for closed fracture (principal); F41.9 Anxiety disorder, unspecified; F32.A Depression, unspecified; Z90.710 Acquired absence of both cervix and uterus; Z90.49 Acquired absence of other specified parts of digestive tract; Z98.890 Other specified postprocedural states; W50.2XXA Accidental twist by another person, initial encounter; Y93.89 Activity, other specified; Y92.89 Other specified places as the place of occurrence of the external cause; Y99.8 Other external cause status
CPT/HCPCS: 29130; 73130; 99283

== ENCOUNTER 2023-11-09 16:20 | Emergency (ER) | payer MEDICAID ==
[~2023-11-09] VITALS: Ht 162.6 cm; Wt 82.4 kg
[2023-11-09 17:25] LABS: BASOPHILS % (AUTO) 0.6 % (0-1); EOSINOPHILS # (AUTO) 0.1 X10'3 (0-0.9); EOSINOPHILS % (AUTO) 1.2 % (0-6); HEMATOCRIT 42.9 % (35.0-45.0); HEMOGLOBIN 14.9 g/dl (12.0-16.0); LYMPHOCYTES % (AUTO) 25.9 % (21-51); MEAN CORPUSCULAR HEMOGLOBIN 30.8 PG (27.0-31.0); MEAN CORPUSCULAR HGB CONC 34.6 g/dL (33.0-36.5); MEAN PLATELET VOLUME 7.2 FL (7.4-10.4); MONOCYTES # (AUTO) 0.5 X10'3 (0-0.9); MONOCYTES % (AUTO) 5.9 % (2-12); NEUTROPHILS % (AUTO) 66.4 % (42-75); PLATELET COUNT 174 X10'3 (140-440); RED BLOOD COUNT 4.83 X10'6 (4.20-5.60); RED CELL DISTRIBUTION WIDTH 14.2 % (11.5-14.5); WHITE BLOOD COUNT 7.6 X10'3 (4.5-11.0)
[2023-11-09 17:31] LABS: URINE HCG NEGATIVE (NEG)
[2023-11-09 17:33] LABS: BILIRUBIN,URINE NEGATIVE (Neg); CLARITY,URINE SLIGHTLY CLOUDY (Clear); COLOR,URINE YELLOW (Yellow); GLUCOSE, URINE NEGATIVE (Neg); KETONES,URINE NEGATIVE (Neg); LEUKOCYTE ESTERASE ,URINE NEGATIVE (Neg); NITRITES, URINE NEGATIVE (Neg); OCCULT BLOOD,URINE NEGATIVE (Neg); PROTEIN,URINE NEGATIVE (Neg); UROBILINOGEN,URINE 0.2 E.U/dL (0.2-1.0)
[2023-11-09 17:35] LABS: ALANINE AMINOTRANSFERASE 46 U/L (12-78); ALBUMIN 4.2 G/DL (3.4-5.0); ALBUMIN/GLOBULIN RATIO 1.1 (1.1-1.5); ALKALINE PHOSPHATASE 193 IU/L (46-116); ANION GAP 10 (8-16); ASPARTATE AMINO TRANSFERASE 16 U/L (10-37); BILIRUBIN,TOTAL 0.7 MG/DL (0.1-1.0); BLOOD UREA NITROGEN 11 MG/DL (7-18); BUN/CREATININE RATIO 14.9 (10.0-20.0); CALCIUM 9.6 MG/DL (8.5-10.1); CHLORIDE 105 MMOL/L (99-107); CREATININE 0.74 MG/DL (0.40-0.90); GLUCOSE 94 MG/DL (70-104); LIPASE 75 U/L (16-77); POTASSIUM 3.9 MMOL/L (3.5-5.1); SODIUM 139 MMOL/L (135-145); TOTAL CARBON DIOXIDE 23.7 MMOL/L (24-32); TOTAL PROTEIN 7.9 G/DL (6.4-8.2); eCRCL 93 ML/MIN; eGFR 90 ML/MIN
[2023-11-09 17:36] LABS: UA COLLECTION TYPE CLN CATCH MIDSTREAM
[2023-11-09 17:41] LABS: RBC,URINE 0-2 /HPF (0-2); SQUAMOUS EPITHELIAL CELL,UR MODERATE /LPF (FEW); WBC,URINE 0-4 /HPF (0-4)
[2023-11-09 17:42] LABS: AMORPHOUS URATES 1+; BACTERIA,URINE FEW /HPF (Neg)
[2023-11-09] MEDS: HYDROmorphone 1 mg/ml syringe IV ONE (22:38)
[2023-11-09] MEDS: diphenhydrAMINE 50 mg/ml inj IV ONE (22:46)
[2023-11-10] MEDS: HYDROmorphone inj. 0.5 MG/0.5 ML DISP.SYRIN IV ONE (01:03)
[2023-11-10] MEDS: ondansetron/PF 4mg/2ml inj IV ONE (03:04)
[2023-11-10] MEDS: HYDROmorphone 1 mg/ml syringe IV STA (03:05)
[2023-11-10] MEDS: HYDROmorphone inj. 0.5 MG/0.5 ML DISP.SYRIN IV PRN (03:56)
[2023-11-10] MEDS: ringers solution, lacted 1,000 ML IV ONE ×2 (05:06→06:42)
[2023-11-10] MEDS: metoprolol tartrate 50mg tablet PO ONE (07:07)
[2023-11-10] MEDS: acetaminophen 1,000mg/100ml IV 100 ML IV SCH (07:12)
[2023-11-10 07:45] VITALS: BP 130/94; PULSE 111; O2SAT 98
[2023-11-10] MEDS ORDERED: METO1TAB12 PO (08:05)
[2023-11-10] MEDS ORDERED: METO-467 PO (08:05)
[2023-11-10] MEDS ORDERED: SUMA25TA35 PO (08:12)
[2023-11-10] MEDS ORDERED: EST1T PO (08:14)
[2023-11-10] MEDS ORDERED: PROP10TA10 PO (08:14)
[2023-11-10] MEDS ORDERED: CYCL-1 PO (08:15)
[2023-11-10] MEDS ORDERED: LORA-268 PO (08:15)
[2023-11-10 08:31] LABS: URINE AMPHETAMINE SCREEN NEGATIVE (Neg); URINE BARBITUATE SCREEN NEGATIVE (Neg); URINE BENZODIAZEPINES SCREEN NEGATIVE (Neg); URINE CANNABINOID SCREEN NEGATIVE (Neg); URINE COCAINE SCREEN NEGATIVE (Neg); URINE METHADONE SCREEN NEGATIVE (Neg); URINE PHENCYCLIDINE SCREEN NEGATIVE (Neg)
[2023-11-10] MEDS ORDERED: LAMO5TAB3 (08:38)
[2023-11-10] MEDS ORDERED: DICY10CA88 PO (08:50)
[2023-11-10] MEDS: cyclobenzaprine 10mg tablet PO ONE (08:59)
[2023-11-10] MEDS: dicyclomine 10 MG capsule PO ONE (08:59)
[2023-11-10] MEDS: HYDROmorphone 1 mg/ml syringe IV ONE (09:00)
[2023-11-10] MEDS: lamoTRIgine 25mg tablet PO SCH (09:05)
[2023-11-10 09:09] VITALS: RESP 16
[2023-11-10] MEDS: LORazepam 1 MG tablet PO ONE (09:11)
[2023-11-10 09:56] VITALS: TEMP 98
== END 2023-11-10 10:18 | disposition home or self-care (01) ==
LOC: ER 16:21
DX: R10.31 Right lower quadrant pain (principal); G43.909 Migraine, unspecified, not intractable, without status migrainosus; F31.9 Bipolar disorder, unspecified; Z88.5 Allergy status to narcotic agent; Z88.1 Allergy status to other antibiotic agents; Z88.8 Allergy status to other drugs, medicaments and biological substances; Z79.899 Other long term (current) drug therapy; Z79.1 Long term (current) use of non-steroidal anti-inflammatories (NSAID); Z90.49 Acquired absence of other specified parts of digestive tract; Z90.710 Acquired absence of both cervix and uterus
CPT/HCPCS: 36415; 74176; 80053; 80305; 81001; 81025; 83690; 85025; 96361; 96374; 96375; 96376; 99285; J0131; J1170; J1200; J2405; J7120

== ENCOUNTER 2024-02-15 11:06 | Emergency (ER) | payer MEDICAID ==
[~2024-02-15] VITALS: Ht 162.6 cm; Wt 78.2 kg
[~2024-02-15 11:06] MED LIST changes: +EST1T PO; -LAMO100T2 PO; +LAMO5TAB3; +LORA-268 PO; +METO-467 PO; +ONDA-243 PO; +ONDA-245 PO; -ONDA4TAB12 PO; -ONDA8TAB13 PO; +PROP10TA10 PO; +SUMA25TA35 PO
[2024-02-15 12:09] LABS: BASOPHILS % (AUTO) 0.5 % (0-1); EOSINOPHILS # (AUTO) 0.1 X10'3 (0-0.9); EOSINOPHILS % (AUTO) 1.4 % (0-6); HEMATOCRIT 40.4 % (35.0-45.0); HEMOGLOBIN 14.2 g/dl (12.0-16.0); LYMPHOCYTES # (AUTO) 1.5 X10'3 (1.1-4.8); LYMPHOCYTES % (AUTO) 27.5 % (21-51); MEAN CORPUSCULAR HEMOGLOBIN 32.8 PG (27.0-31.0); MEAN CORPUSCULAR HGB CONC 35.2 g/dL (33.0-36.5); MEAN CORPUSCULAR VOLUME 93.3 FL (78-98); MEAN PLATELET VOLUME 7.5 FL (7.4-10.4); MONOCYTES # (AUTO) 0.3 X10'3 (0-0.9); MONOCYTES % (AUTO) 6.2 % (2-12); NEUTROPHILS # (AUTO) 3.4 X10'3 (1.8-7.7); NEUTROPHILS % (AUTO) 64.4 % (42-75); PLATELET COUNT 168 X10'3 (140-440); RED BLOOD COUNT 4.33 X10'6 (4.20-5.60); RED CELL DISTRIBUTION WIDTH 14.3 % (11.5-14.5); WHITE BLOOD COUNT 5.3 X10'3 (4.5-11.0)
[2024-02-15 12:34] LABS: ALBUMIN 4.2 G/DL (3.4-5.0); ANION GAP 13 (8-16); BLOOD UREA NITROGEN 13 MG/DL (7-18); CALCIUM 9.7 MG/DL (8.5-10.1); CHLORIDE 104 MMOL/L (99-107); CREATININE 0.93 MG/DL (0.40-0.90); GLUCOSE 102 MG/DL (70-104); POTASSIUM 4.5 MMOL/L (3.5-5.1); PRO BRAIN NATRIURETIC PEPTIDE < 30 PG/ML (0-125); SODIUM 141 MMOL/L (135-145); eCRCL 74 ML/MIN; eGFR 69 ML/MIN
[2024-02-15 13:09] LABS: ALANINE AMINOTRANSFERASE 106 U/L (12-78); ALKALINE PHOSPHATASE 337 IU/L (46-116); ASPARTATE AMINO TRANSFERASE 27 U/L (10-37); BILIRUBIN,TOTAL 0.8 MG/DL (0.1-1.0); LIPASE 61 U/L (16-77); TOTAL PROTEIN 8.5 G/DL (6.4-8.2)
[2024-02-15 13:18] LABS: APTT 30 SECONDS (22-32); PROTHROMBIN TIME 10.2 SECONDS (9.0-12.0)
[2024-02-15] MEDS ORDERED: ketorolac trometh 30MG/ML vial 30 MG/ML VIAL IV ONE (13:25)
[2024-02-15] MEDS: HYDROcodone/acetaminophen 5mg/325mg tablet PO ONE (13:35)
[2024-02-15] MEDS: normal saline 1000ml 1,000 ML IV ONE (13:35)
[2024-02-15] MEDS: dicyclomine 10mg/ml 2ml ampule IM ONE (13:36)
[2024-02-15] MEDS ORDERED: DICY20TA17 PO (15:21)
[2024-02-15] MEDS ORDERED: ONDA-243 PO (15:21)
[2024-02-15 15:26] VITALS: BP 99/67; PULSE 73; RESP 16; TEMP 97.7; O2SAT 98
== END 2024-02-15 15:27 | disposition home or self-care (01) ==
LOC: ER 11:07
DX: R10.11 Right upper quadrant pain (principal); R79.89 Other specified abnormal findings of blood chemistry; R74.8 Abnormal levels of other serum enzymes; G43.909 Migraine, unspecified, not intractable, without status migrainosus; D64.9 Anemia, unspecified; G89.29 Other chronic pain; M54.9 Dorsalgia, unspecified; F41.9 Anxiety disorder, unspecified; F32.A Depression, unspecified; Z88.8 Allergy status to other drugs, medicaments and biological substances; Z88.1 Allergy status to other antibiotic agents; Z91.041 Radiographic dye allergy status; Z79.899 Other long term (current) drug therapy; Z79.1 Long term (current) use of non-steroidal anti-inflammatories (NSAID); Z95.1 Presence of aortocoronary bypass graft; Z90.49 Acquired absence of other specified parts of digestive tract; Z90.710 Acquired absence of both cervix and uterus
CPT/HCPCS: 36415; 71045; 74176; 76700; 80053; 83690; 83880; 84484; 85025; 85610; 85730; 93005; 96360; 96361; 96372; 99285; J0500; J7030

== ENCOUNTER 2024-03-13 14:16 | Emergency (ER) | payer MEDICAID ==
[~2024-03-13] VITALS: Ht 162.6 cm; Wt 77.2 kg
[~2024-03-13 14:16] MED LIST changes: +DICY20TA17 PO
[2024-03-13 15:59] LABS: APTT 29 SECONDS (22-32); PROTHROMBIN TIME 10.8 SECONDS (9.0-12.0)
[2024-03-13 16:02] LABS: ALANINE AMINOTRANSFERASE 63 U/L (12-78); ALBUMIN 4.4 G/DL (3.4-5.0); ALBUMIN/GLOBULIN RATIO 1.2 (1.1-1.5); ALKALINE PHOSPHATASE 240 IU/L (46-116); ANION GAP 8 (8-16); ASPARTATE AMINO TRANSFERASE 32 U/L (10-37); BASOPHILS % (AUTO) 0.7 % (0-1); BILIRUBIN,TOTAL 0.7 MG/DL (0.1-1.0); BLOOD UREA NITROGEN 12 MG/DL (7-18); BUN/CREATININE RATIO 12.5 (10.0-20.0); CALCIUM 9.7 MG/DL (8.5-10.1); CHLORIDE 105 MMOL/L (99-107); CREATININE 0.96 MG/DL (0.40-0.90); EOSINOPHILS # (AUTO) 0.1 X10'3 (0-0.9); EOSINOPHILS % (AUTO) 2.5 % (0-6); GLUCOSE 99 MG/DL (70-104); HEMATOCRIT 36.3 % (35.0-45.0); HEMOGLOBIN 12.8 g/dl (12.0-16.0); LIPASE 66 U/L (16-77); LYMPHOCYTES # (AUTO) 1.4 X10'3 (1.1-4.8); LYMPHOCYTES % (AUTO) 26.8 % (21-51); MEAN CORPUSCULAR HEMOGLOBIN 32.2 PG (27.0-31.0); MEAN CORPUSCULAR HGB CONC 35.1 g/dL (33.0-36.5); MEAN CORPUSCULAR VOLUME 91.7 FL (78-98); MEAN PLATELET VOLUME 7.2 FL (7.4-10.4); MONOCYTES # (AUTO) 0.4 X10'3 (0-0.9); MONOCYTES % (AUTO) 7.1 % (2-12); NEUTROPHILS # (AUTO) 3.2 X10'3 (1.8-7.7); NEUTROPHILS % (AUTO) 62.9 % (42-75); PLATELET COUNT 150 X10'3 (140-440); POTASSIUM 4.2 MMOL/L (3.5-5.1); RED BLOOD COUNT 3.96 X10'6 (4.20-5.60); RED CELL DISTRIBUTION WIDTH 14.4 % (11.5-14.5); SODIUM 139 MMOL/L (135-145); TOTAL CARBON DIOXIDE 25.8 MMOL/L (24-32); eCRCL 71 ML/MIN; eGFR 67 ML/MIN
[2024-03-13 16:10] LABS: BILIRUBIN,URINE NEGATIVE (Neg); CLARITY,URINE SLIGHTLY CLOUDY (Clear); COLOR,URINE YELLOW (Yellow); GLUCOSE, URINE NEGATIVE (Neg); KETONES,URINE NEGATIVE (Neg); LEUKOCYTE ESTERASE ,URINE NEGATIVE (Neg); NITRITES, URINE NEGATIVE (Neg); OCCULT BLOOD,URINE NEGATIVE (Neg); PROTEIN,URINE NEGATIVE (Neg); URINE HCG NEGATIVE (NEG); UROBILINOGEN,URINE 0.2 E.U/dL (0.2-1.0)
[2024-03-13 16:12] LABS: HCG SERUM QL NEGATIVE
[2024-03-13 16:14] LABS: UA COLLECTION TYPE CLN CATCH MIDSTREAM
[2024-03-13 16:15] LABS: BACTERIA,URINE 4+ /HPF (Neg); RBC,URINE NONE SEEN /HPF (0-2); SQUAMOUS EPITHELIAL CELL,UR MANY /LPF (FEW)
[2024-03-13] MEDS: ondansetron 4mg rapidly disintigrating tab PO ONE (17:25)
[2024-03-13] MEDS: HYDROcodone/acetaminophen 10/325mg tab PO ONE (17:26)
[2024-03-13] MEDS ORDERED: HYDR-3965 PO (18:07)
[2024-03-13 18:21] VITALS: BP 125/86; PULSE 81; RESP 16; TEMP 98.1; O2SAT 99
== END 2024-03-13 18:14 | disposition home or self-care (01) ==
LOC: ER 14:17
DX: G89.18 Other acute postprocedural pain (principal); R10.11 Right upper quadrant pain; G89.29 Other chronic pain; F32.A Depression, unspecified; Z88.5 Allergy status to narcotic agent; Z88.6 Allergy status to analgesic agent; Z88.8 Allergy status to other drugs, medicaments and biological substances; Z88.1 Allergy status to other antibiotic agents; Z79.899 Other long term (current) drug therapy; Z90.49 Acquired absence of other specified parts of digestive tract; Z90.710 Acquired absence of both cervix and uterus; Z95.1 Presence of aortocoronary bypass graft; Z94.81 Bone marrow transplant status; Z91.041 Radiographic dye allergy status
CPT/HCPCS: 36415; 76700; 80053; 81001; 81025; 83690; 84703; 85025; 85610; 85730; 99284

== ENCOUNTER 2024-04-13 10:01 | Emergency (ER) | payer MEDICAID ==
[~2024-04-13] VITALS: Ht 162.6 cm; Wt 75.5 kg
[2024-04-13 10:40] VITALS: TEMP 97
[2024-04-13] MEDS: diphenhydrAMINE 50 mg/ml inj IV ONE (11:03)
[2024-04-13] MEDS: normal saline 1000ML IV soln IVB ONE ×2 (11:04→11:45)
[2024-04-13] MEDS: metoclopramide 5 mg/ml inj IV ONE (11:04)
[2024-04-13 11:23] LABS: EOSINOPHILS # (AUTO) 0.1 X10'3 (0-0.9); EOSINOPHILS % (AUTO) 2.4 % (0-6); HEMATOCRIT 39.2 % (35.0-45.0); HEMOGLOBIN 13.7 g/dl (12.0-16.0); LYMPHOCYTES # (AUTO) 1.5 X10'3 (1.1-4.8); LYMPHOCYTES % (AUTO) 31.7 % (21-51); MEAN CORPUSCULAR HEMOGLOBIN 33.4 PG (27.0-31.0); MEAN CORPUSCULAR VOLUME 95.3 FL (78-98); MEAN PLATELET VOLUME 7.6 FL (7.4-10.4); MONOCYTES # (AUTO) 0.3 X10'3 (0-0.9); MONOCYTES % (AUTO) 7.2 % (2-12); NEUTROPHILS # (AUTO) 2.7 X10'3 (1.8-7.7); NEUTROPHILS % (AUTO) 57.7 % (42-75); PLATELET COUNT 163 X10'3 (140-440); RED BLOOD COUNT 4.12 X10'6 (4.20-5.60); RED CELL DISTRIBUTION WIDTH 13.7 % (11.5-14.5); WHITE BLOOD COUNT 4.6 X10'3 (4.5-11.0)
[2024-04-13 11:23] LABS: URINE HCG NEGATIVE (NEG)
[2024-04-13 11:35] LABS: BILIRUBIN,URINE NEGATIVE (Neg); CLARITY,URINE SLIGHTLY CLOUDY (Clear); COLOR,URINE YELLOW (Yellow); GLUCOSE, URINE NEGATIVE (Neg); KETONES,URINE NEGATIVE (Neg); LEUKOCYTE ESTERASE ,URINE NEGATIVE (Neg); NITRITES, URINE NEGATIVE (Neg); OCCULT BLOOD,URINE NEGATIVE (Neg); PROTEIN,URINE NEGATIVE (Neg); UROBILINOGEN,URINE 0.2 E.U/dL (0.2-1.0)
[2024-04-13 11:38] LABS: ALANINE AMINOTRANSFERASE 45 U/L (12-78); ALBUMIN 4.3 G/DL (3.4-5.0); ALBUMIN/GLOBULIN RATIO 1.2 (1.1-1.5); ALKALINE PHOSPHATASE 159 IU/L (46-116); ANION GAP 12 (8-16); ASPARTATE AMINO TRANSFERASE 27 U/L (10-37); BILIRUBIN,TOTAL 0.7 MG/DL (0.1-1.0); BLOOD UREA NITROGEN 22 MG/DL (7-18); BUN/CREATININE RATIO 18.3 (10.0-20.0); CALCIUM 9.5 MG/DL (8.5-10.1); CHLORIDE 106 MMOL/L (99-107); GLUCOSE 106 MG/DL (70-104); LIPASE 55 U/L (16-77); SODIUM 141 MMOL/L (135-145); TOTAL CARBON DIOXIDE 22.7 MMOL/L (24-32); TOTAL PROTEIN 7.8 G/DL (6.4-8.2); eCRCL 57 ML/MIN; eGFR 51 ML/MIN
[2024-04-13 11:44] LABS: UA COLLECTION TYPE CLN CATCH MIDSTREAM
[2024-04-13 11:45] VITALS: BP 149/122; PULSE 68; RESP 18; O2SAT 99
[2024-04-13 11:49] LABS: POTASSIUM 4.7 MMOL/L (3.5-5.1)
[2024-04-13 11:49] LABS: HYALINE CASTS 0-3 /LPF (NEGATIVE); SQUAMOUS EPITHELIAL CELL,UR MANY /LPF (FEW)
[2024-04-13 11:50] LABS: BACTERIA,URINE 2+ /HPF (Neg); RBC,URINE 0-2 /HPF (0-2); WBC,URINE 0-4 /HPF (0-4)
[2024-04-13] MEDS: acetaminophen 1,000mg/100ml IV 100 ML IV ONE (12:13)
[2024-04-13] MEDS ORDERED: DICY10CA88 PO (13:02)
== END 2024-04-13 13:11 | disposition home or self-care (01) ==
LOC: ER 10:02
DX: R10.84 Generalized abdominal pain (principal); R11.2 Nausea with vomiting, unspecified; G89.29 Other chronic pain; F31.9 Bipolar disorder, unspecified; Z88.5 Allergy status to narcotic agent; Z88.6 Allergy status to analgesic agent; Z88.8 Allergy status to other drugs, medicaments and biological substances; Z88.1 Allergy status to other antibiotic agents; Z90.49 Acquired absence of other specified parts of digestive tract; Z90.710 Acquired absence of both cervix and uterus; Z91.041 Radiographic dye allergy status; Z94.81 Bone marrow transplant status; Z95.1 Presence of aortocoronary bypass graft
CPT/HCPCS: 36415; 71250; 74176; 80053; 81001; 81025; 83690; 84145; 85025; 96361; 96365; 96375; 99285; J0131; J1200; J2765; J7030

== ENCOUNTER 2024-04-14 15:28 | Emergency (ER) | payer MEDICAID ==
[~2024-04-14] VITALS: Ht 162.6 cm; Wt 75.9 kg
[~2024-04-14 15:28] MED LIST changes: +DICY10CA88 PO
[2024-04-14 20:38] LABS: BILIRUBIN,URINE MODERATE (Neg); CLARITY,URINE CLEAR (Clear); COLOR,URINE YELLOW (Yellow); GLUCOSE, URINE NEGATIVE (Neg); KETONES,URINE 40 mg/dl (Neg); LEUKOCYTE ESTERASE ,URINE NEGATIVE (Neg); NITRITES, URINE NEGATIVE (Neg); OCCULT BLOOD,URINE NEGATIVE (Neg); PROTEIN,URINE NEGATIVE (Neg); UROBILINOGEN,URINE 0.2 E.U/dL (0.2-1.0)
[2024-04-14 20:42] LABS: UA COLLECTION TYPE CLN CATCH MIDSTREAM
[2024-04-14 21:18] LABS: BASOPHILS % (AUTO) 0.6 % (0-1); EOSINOPHILS # (AUTO) 0.1 X10'3 (0-0.9); EOSINOPHILS % (AUTO) 2.5 % (0-6); HEMOGLOBIN 12.7 g/dl (12.0-16.0); LYMPHOCYTES # (AUTO) 1.6 X10'3 (1.1-4.8); LYMPHOCYTES % (AUTO) 40.4 % (21-51); MEAN CORPUSCULAR HEMOGLOBIN 32.9 PG (27.0-31.0); MEAN CORPUSCULAR HGB CONC 35.2 g/dL (33.0-36.5); MEAN CORPUSCULAR VOLUME 93.5 FL (78-98); MEAN PLATELET VOLUME 7.4 FL (7.4-10.4); MONOCYTES # (AUTO) 0.2 X10'3 (0-0.9); MONOCYTES % (AUTO) 5.4 % (2-12); NEUTROPHILS % (AUTO) 51.1 % (42-75); PLATELET COUNT 115 X10'3 (140-440); RED BLOOD COUNT 3.85 X10'6 (4.20-5.60); RED CELL DISTRIBUTION WIDTH 13.7 % (11.5-14.5); WHITE BLOOD COUNT 3.9 X10'3 (4.5-11.0)
[2024-04-14] MEDS: normal saline 1000ML IV soln IVB ONE (21:38)
[2024-04-14] MEDS: ondansetron/PF 4mg/2ml inj IV ONE (21:38)
[2024-04-14] MEDS: metoclopramide 5 mg/ml inj IV ONE (21:38)
[2024-04-14 21:56] LABS: ALBUMIN 4.6 G/DL (3.4-5.0); ANION GAP 10 (8-16); BLOOD UREA NITROGEN 12 MG/DL (7-18); BUN/CREATININE RATIO 11.2 (10.0-20.0); C-REACTIVE PROTEIN 0.23 MG/DL (0.0-0.5); CALCIUM 9.3 MG/DL (8.5-10.1); CHLORIDE 103 MMOL/L (99-107); CREATININE 1.07 MG/DL (0.40-0.90); GLUCOSE 76 MG/DL (70-104); LIPASE 42 U/L (16-77); MAGNESIUM 2.1 MG/DL (1.5-2.4); POTASSIUM 3.5 MMOL/L (3.5-5.1); SODIUM 138 MMOL/L (135-145); TOTAL CARBON DIOXIDE 25.1 MMOL/L (24-32); eCRCL 64 ML/MIN; eGFR 59 ML/MIN
[2024-04-14 22:17] VITALS: BP 109/78; PULSE 87; O2SAT 96
[2024-04-14 22:18] VITALS: RESP 16
[2024-04-14] MEDS: morphine 2 MG/ML inj. syringe IV ONE (22:18)
[2024-04-14 22:29] VITALS: TEMP 98.4
== END 2024-04-14 22:30 | disposition home or self-care (01) ==
LOC: ER 15:29
DX: R10.33 Periumbilical pain (principal); E86.0 Dehydration; G43.909 Migraine, unspecified, not intractable, without status migrainosus; D64.9 Anemia, unspecified; G89.29 Other chronic pain; M54.9 Dorsalgia, unspecified; F32.A Depression, unspecified; F41.9 Anxiety disorder, unspecified; Z91.041 Radiographic dye allergy status; Z88.6 Allergy status to analgesic agent; Z88.1 Allergy status to other antibiotic agents; Z88.8 Allergy status to other drugs, medicaments and biological substances; Z79.1 Long term (current) use of non-steroidal anti-inflammatories (NSAID); Z79.899 Other long term (current) drug therapy; Z90.710 Acquired absence of both cervix and uterus; Z95.1 Presence of aortocoronary bypass graft
CPT/HCPCS: 36415; 80048; 81003; 83690; 83735; 84145; 85025; 85651; 86140; 96361; 96374; 96375; 99284; J2270; J2405; J2765; J7030; 84075

== ENCOUNTER 2024-05-15 07:16 | Emergency (ER) | payer MEDICAID ==
[~2024-05-15] VITALS: Ht 162.6 cm; Wt 74.1 kg
[~2024-05-15 07:16] MED LIST changes: -DICY10CA88 PO; +METH4TAB81 PO
[2024-05-15 07:21] VITALS: BP 111/67; PULSE 103; RESP 20; TEMP 97.7; O2SAT 100
[2024-05-15] MEDS ORDERED: AMOX-117 PO (08:43)
[2024-05-15] MEDS ORDERED: HYDR-3964 PO (08:44)
== END 2024-05-15 08:53 | disposition home or self-care (01) ==
LOC: ER 07:16
DX: H66.92 Otitis media, unspecified, left ear (principal); F31.9 Bipolar disorder, unspecified; G89.29 Other chronic pain; Z88.5 Allergy status to narcotic agent; Z88.8 Allergy status to other drugs, medicaments and biological substances; Z88.6 Allergy status to analgesic agent; Z88.1 Allergy status to other antibiotic agents; Z88.0 Allergy status to penicillin; Z79.899 Other long term (current) drug therapy; Z79.2 Long term (current) use of antibiotics; Z90.49 Acquired absence of other specified parts of digestive tract; Z90.710 Acquired absence of both cervix and uterus; Z91.041 Radiographic dye allergy status; Z94.81 Bone marrow transplant status; Z95.1 Presence of aortocoronary bypass graft
CPT/HCPCS: 99283

== ENCOUNTER 2024-06-11 10:24 | Emergency (ER) | payer MEDICAID ==
[~2024-06-11] VITALS: Ht 162.6 cm; Wt 69.7 kg
[2024-06-11 10:47] LABS: BILIRUBIN,URINE NEGATIVE (Neg); CLARITY,URINE CLEAR (Clear); COLOR,URINE YELLOW (Yellow); GLUCOSE, URINE NEGATIVE (Neg); KETONES,URINE NEGATIVE (Neg); LEUKOCYTE ESTERASE ,URINE NEGATIVE (Neg); NITRITES, URINE NEGATIVE (Neg); OCCULT BLOOD,URINE NEGATIVE (Neg); PROTEIN,URINE NEGATIVE (Neg); UROBILINOGEN,URINE 0.2 E.U/dL (0.2-1.0)
[2024-06-11 10:48] LABS: URINE HCG NEGATIVE (NEG)
[2024-06-11 10:51] LABS: UA COLLECTION TYPE CLN CATCH MIDSTREAM
[2024-06-11 10:56] LABS: BASOPHILS % (AUTO) 0.6 % (0-1); EOSINOPHILS # (AUTO) 0.1 X10'3 (0-0.9); EOSINOPHILS % (AUTO) 1.3 % (0-6); HEMATOCRIT 37.3 % (35.0-45.0); HEMOGLOBIN 12.9 g/dl (12.0-16.0); LYMPHOCYTES % (AUTO) 22.5 % (21-51); MEAN CORPUSCULAR HEMOGLOBIN 32.5 PG (27.0-31.0); MEAN CORPUSCULAR HGB CONC 34.7 g/dL (33.0-36.5); MEAN CORPUSCULAR VOLUME 93.7 FL (78-98); MEAN PLATELET VOLUME 7.3 FL (7.4-10.4); MONOCYTES # (AUTO) 0.2 X10'3 (0-0.9); NEUTROPHILS # (AUTO) 3.2 X10'3 (1.8-7.7); NEUTROPHILS % (AUTO) 70.6 % (42-75); PLATELET COUNT 112 X10'3 (140-440); RED BLOOD COUNT 3.99 X10'6 (4.20-5.60); RED CELL DISTRIBUTION WIDTH 13.7 % (11.5-14.5); WHITE BLOOD COUNT 4.6 X10'3 (4.5-11.0)
[2024-06-11 11:17] LABS: ALANINE AMINOTRANSFERASE 64 U/L (12-78); ALBUMIN 4.1 G/DL (3.4-5.0); ALKALINE PHOSPHATASE 331 IU/L (46-116); ANION GAP 12 (8-16); ASPARTATE AMINO TRANSFERASE 20 U/L (10-37); BILIRUBIN,TOTAL 0.5 MG/DL (0.1-1.0); BLOOD UREA NITROGEN 26 MG/DL (7-18); CALCIUM 9.8 MG/DL (8.5-10.1); CHLORIDE 106 MMOL/L (99-107); CREATININE 0.93 MG/DL (0.40-0.90); GLUCOSE 113 MG/DL (70-104); LIPASE 82 U/L (16-77); POTASSIUM 3.9 MMOL/L (3.5-5.1); SODIUM 141 MMOL/L (135-145); TOTAL CARBON DIOXIDE 22.9 MMOL/L (24-32); TOTAL PROTEIN 8.2 G/DL (6.4-8.2); eCRCL 74 ML/MIN; eGFR 69 ML/MIN
[2024-06-11] MEDS ORDERED: iohexol 300mg/ml 100ml inj. ONE (12:00)
[2024-06-11] MEDS: normal saline 1000ML IV soln IVB ONE (13:04)
[2024-06-11] MEDS: ondansetron/PF 4mg/2ml inj IV ONE ×2 (13:05→14:56)
[2024-06-11] MEDS: diphenhydrAMINE 50 mg/ml inj IV ONE (13:05)
[2024-06-11] MEDS: morphine 4 MG/ML inj SYRINge IV ONE ×2 (13:05→14:56)
[2024-06-11 15:01] VITALS: BP 117/90; PULSE 93; RESP 16; TEMP 98.6; O2SAT 100
== END 2024-06-11 15:02 | disposition home or self-care (01) ==
LOC: ER 10:25
DX: R74.8 Abnormal levels of other serum enzymes (principal); R10.10 Upper abdominal pain, unspecified; G43.909 Migraine, unspecified, not intractable, without status migrainosus; F41.9 Anxiety disorder, unspecified; F31.9 Bipolar disorder, unspecified; Z88.1 Allergy status to other antibiotic agents; Z88.5 Allergy status to narcotic agent; Z88.8 Allergy status to other drugs, medicaments and biological substances; Z90.49 Acquired absence of other specified parts of digestive tract; Z90.710 Acquired absence of both cervix and uterus; Z91.041 Radiographic dye allergy status; Z94.81 Bone marrow transplant status; Z95.1 Presence of aortocoronary bypass graft; Z98.890 Other specified postprocedural states
CPT/HCPCS: 36415; 74177; 80053; 81003; 81025; 83690; 85025; 96361; 96374; 96375; 96376; 99285; J1200; J2270; J2405; J7030; Q9967

== ENCOUNTER 2024-09-10 12:47 | Emergency (ER) | payer MEDICAID ==
[~2024-09-10] VITALS: Ht 162.6 cm; Wt 69.1 kg
[~2024-09-10 12:47] MED LIST changes: -BISA10SU60 RC; -BUSP10TA11 PO; -CLON0.5T2 PO; -DICY20TA17 PO; -DIPH25CA83 PO; +FREM225A; -HYDR-4383 PO; -IBUP-1986 PO; -LAMO5TAB3; -LURA40TA2 PO; -MAGCITRATE PO; -METH4TAB81 PO; -METO-292 PO; -METO-467 PO; -ONDA-243 PO; -ONDA-245 PO; -ORPH100T4 PO; -OXYC-150 PO; +PROM25SU51 RC; -PROP10TA10 PO; -lithium carbonate PO
[2024-09-10 12:56] VITALS: TEMP 97.9
[2024-09-10] MEDS: HYDROcodone/acetaminophen 5mg/325mg tablet PO ONE (13:50)
[2024-09-10] MEDS ORDERED: HYDR-3965 PO (14:11)
[2024-09-10 14:45] VITALS: BP 138/99; PULSE 117; RESP 16; O2SAT 99
== END 2024-09-10 14:50 | disposition home or self-care (01) ==
LOC: ER 12:47
DX: S60.562A Insect bite (nonvenomous) of left hand, initial encounter (principal); F31.9 Bipolar disorder, unspecified; F41.9 Anxiety disorder, unspecified; Z88.1 Allergy status to other antibiotic agents; Z88.5 Allergy status to narcotic agent; Z88.8 Allergy status to other drugs, medicaments and biological substances; Z90.49 Acquired absence of other specified parts of digestive tract; Z90.710 Acquired absence of both cervix and uterus; Z91.041 Radiographic dye allergy status; Z94.81 Bone marrow transplant status; Z95.1 Presence of aortocoronary bypass graft; W57.XXXA Bitten or stung by nonvenomous insect and other nonvenomous arthropods, initial encounter; Y93.89 Activity, other specified; Y92.89 Other specified places as the place of occurrence of the external cause; Y99.8 Other external cause status
CPT/HCPCS: 99283

== ENCOUNTER 2024-09-12 09:17 | Day surgery (SDC) | payer MEDICAID ==
[2024-09-12] VITALS (9 sets, daily range): BP systolic 95–151; BP diastolic 64–75; PULSE 72–102; RESP 12–18; TEMP 97.4; O2SAT 93–98
[~2024-09-12] VITALS: Ht 162.6 cm; Wt 66.8 kg
[~2024-09-12 09:17] MED LIST changes: +HYDR-3965 PO
[2024-09-12] MEDS ORDERED: midazolam 1 mg/ML 2ml injection ONE ×2 (11:28→11:33)
[2024-09-12] MEDS ORDERED: fentaNYL/PF 50MCG/1 ML 2ML syringe ONE (11:28)
[2024-09-12] MEDS ORDERED: propofol inj 20 ML IV ONE (11:41)
== END 2024-09-12 12:35 | disposition home or self-care (01) ==
LOC: GI LAB 09:17
PROVIDERS: ATTEND Internal Medicine Gastroenterology
DX: R10.13 Epigastric pain (principal); K31.89 Other diseases of stomach and duodenum; G43.909 Migraine, unspecified, not intractable, without status migrainosus; Z87.01 Personal history of pneumonia (recurrent); Z79.899 Other long term (current) drug therapy; Z98.890 Other specified postprocedural states
CPT/HCPCS: 43239; J2250; J2704; J3010; J7030; Z7512; 43235; A4620

== ENCOUNTER 2024-09-27 12:16 | Emergency (ER) | payer MEDICAID ==
[~2024-09-27] VITALS: Ht 162.6 cm; Wt 68.6 kg
[2024-09-27 12:49] LABS: HEMOGLOBIN 13.5 g/dl (12.0-16.0); LYMPHOCYTES # (AUTO) 0.9 X10'3 (1.1-4.8); LYMPHOCYTES % (AUTO) 66.2 % (21-51); MONOCYTES # (AUTO) 0.3 X10'3 (0-0.9); NEUTROPHILS # (AUTO) 0.1 X10'3 (1.8-7.7); WHITE BLOOD COUNT 1.4 X10'3 (4.5-11.0)
[2024-09-27 12:51] LABS: EOSINOPHILS % (AUTO) 2.8 % (0-6); HEMATOCRIT 39.1 % (35.0-45.0); MEAN CORPUSCULAR HEMOGLOBIN 31.3 PG (27.0-31.0); MEAN CORPUSCULAR HGB CONC 34.5 g/dL (33.0-36.5); MEAN CORPUSCULAR VOLUME 90.7 FL (78-98); MEAN PLATELET VOLUME 6.7 FL (7.4-10.4); MONOCYTES % (AUTO) 21.9 % (2-12); NEUTROPHILS % (AUTO) 8.1 % (42-75); PLATELET COUNT 103 X10'3 (140-440); RED BLOOD COUNT 4.31 X10'6 (4.20-5.60); RED CELL DISTRIBUTION WIDTH 13.8 % (11.5-14.5)
[2024-09-27 13:04] LABS: ALANINE AMINOTRANSFERASE 140 U/L (12-78); ALBUMIN 4.1 G/DL (3.4-5.0); ALBUMIN/GLOBULIN RATIO 1.2 (1.1-1.5); ALKALINE PHOSPHATASE 304 IU/L (46-116); ANION GAP 8 (8-16); ASPARTATE AMINO TRANSFERASE 57 U/L (10-37); BILIRUBIN,TOTAL 0.7 MG/DL (0.1-1.0); BLOOD UREA NITROGEN 13 MG/DL (7-18); BUN/CREATININE RATIO 16.5 (10.0-20.0); CALCIUM 9.5 MG/DL (8.5-10.1); CHLORIDE 104 MMOL/L (99-107); CREATININE 0.79 MG/DL (0.40-0.90); GLUCOSE 92 MG/DL (70-104); POTASSIUM 4.3 MMOL/L (3.5-5.1); SODIUM 140 MMOL/L (135-145); TOTAL CARBON DIOXIDE 28.3 MMOL/L (24-32); TOTAL PROTEIN 7.5 G/DL (6.4-8.2); eCRCL 87 ML/MIN; eGFR 83 ML/MIN
[2024-09-27 13:11] LABS: PRO BRAIN NATRIURETIC PEPTIDE 40 PG/ML (0-125)
[2024-09-27 14:06] LABS: PLATELET ESTIMATE DECREASED; TOTAL CELLS COUNTED 100
[2024-09-27] MEDS ORDERED: iohexol 300mg/ml 100ml inj. ONE (14:53)
[2024-09-27] MEDS: morphine 2 MG/ML inj. syringe IV ONE (15:21)
[2024-09-27] MEDS: ondansetron/PF 4mg/2ml inj IV ONE (15:21)
[2024-09-27] MEDS: diphenhydrAMINE 50 mg/ml inj IV ONE (15:21)
[2024-09-27] MEDS: HYDROmorphone 1 mg/ml syringe IV ONE (17:09)
[2024-09-27] MEDS: valacyclovir 500mg tablet PO ONE (18:32)
[2024-09-27] MEDS: CefTRIAXone 2gm/D5W 50ml BAG 50 ML IV ONE (18:32)
[2024-09-27 19:27] VITALS: TEMP 98.2
[2024-09-27] MEDS ORDERED: HYDR-3965 PO (19:53)
[2024-09-27] MEDS ORDERED: AMOX-580 PO (19:53)
[2024-09-27] MEDS ORDERED: VALA100031 PO (19:53)
[2024-09-27 20:05] VITALS: BP 126/94; PULSE 91; O2SAT 99
[2024-09-27 20:12] VITALS: RESP 11
[2024-09-27] MEDS: HYDROmorphone inj. 0.5 MG/0.5 ML DISP.SYRIN IV ONE (20:12)
== END 2024-09-27 20:18 | disposition home or self-care (01) ==
LOC: ER 12:17
DX: G62.9 Polyneuropathy, unspecified (principal); B00.1 Herpesviral vesicular dermatitis; H70.92 Unspecified mastoiditis, left ear; F31.9 Bipolar disorder, unspecified; Z88.1 Allergy status to other antibiotic agents; Z88.5 Allergy status to narcotic agent; Z88.8 Allergy status to other drugs, medicaments and biological substances; Z90.49 Acquired absence of other specified parts of digestive tract; Z90.710 Acquired absence of both cervix and uterus; Z91.041 Radiographic dye allergy status; Z94.81 Bone marrow transplant status; Z95.1 Presence of aortocoronary bypass graft
CPT/HCPCS: 36415; 70487; 71045; 80053; 83880; 84484; 85025; 93005; 96365; 96375; 96376; 99285; J0696; J1171; J1200; J2270; J2405; Q9967; 85007

== ENCOUNTER 2024-10-01 15:40 | Inpatient (IN) | payer MEDICAID ==
[~2024-10-01] VITALS: Ht 162.6 cm; Wt 57.4 kg
[~2024-10-01 15:40] MED LIST changes: +AMOX-580 PO; +VALA100031 PO
--- NOTE | 2024-10-01 15:59 | ELECTROCARDIOGRAPH REPORT ---
[facility] Test Date: 2024-10-01 Test Time: 15:58:06 Pat Name: SANG FRANKS Department: [facility] Patient ID: [facility]-[id number] Room: [place] [address] Gender: F Data Integrity Consultant: : 1990 Requested By: JORDAN HERNANDEZ Order Number: [id number] Reading MD: Dr. Jose Angel Stewart Measurements Intervals [place] Rate: 100 P: 73 WI: 139 QRS: 79 QRSD: 97 T: -25 QT: 385 QTc: 497 Interpretive Statements Sinus tachycardia Borderline T abnormalities, diffuse leads Prolonged QT interval Electronically Signed On 10-03-2024 19:03:[address] Jose Angel Stewart Please click the below link to view image of tracing.
[2024-10-01 16:24] LABS: LYMPHOCYTES # (AUTO) 0.9 X10'3 (1.1-4.8); MEAN PLATELET VOLUME 6.8 FL (7.4-10.4); MONOCYTES # (AUTO) 0.2 X10'3 (0-0.9); MONOCYTES % (AUTO) 15.9 % (2-12); NEUTROPHILS # (AUTO) 0.3 X10'3 (1.8-7.7)
[2024-10-01 16:26] LABS: BASOPHILS % (AUTO) 0.9 % (0-1); EOSINOPHILS % (AUTO) 2.5 % (0-6); HEMATOCRIT 36.6 % (35.0-45.0); HEMOGLOBIN 12.9 g/dl (12.0-16.0); LYMPHOCYTES % (AUTO) 61.7 % (21-51); MEAN CORPUSCULAR HEMOGLOBIN 31.5 PG (27.0-31.0); MEAN CORPUSCULAR HGB CONC 35.2 g/dL (33.0-36.5); MEAN CORPUSCULAR VOLUME 89.7 FL (78-98); PLATELET COUNT 108 X10'3 (140-440); RED BLOOD COUNT 4.09 X10'6 (4.20-5.60); RED CELL DISTRIBUTION WIDTH 13.3 % (11.5-14.5); WHITE BLOOD COUNT 1.4 X10'3 (4.5-11.0)
--- NOTE | 2024-10-01 16:27 | Physician Documentation ---
History of Present Illness ~ General Chief Complaint: Multiple Medical Complaints Stated Complaint: HOLE IN MOUTH Time Seen by MD: 15:51 OK to notify your PCP?: Yes Primary Medical Doctor: Nathaly Iniguez Source: patient Mode of Arrival: POV Exam Limitations: no limitations History of Present Illness Initial Comments This is a 34-year-old female that I saw this past week for left side of jaw humera n. At the time I performed a CT scan which did not show a fluid collection aside from some mild edema of the left side of the mandible. The patient also had some aphthous ulcers on her lips and an ulcer in the left gumline. I place the patient on antibiotics and acyclovir. I offered admission of the time however the patient stated that she wanted to follow up with her doctors and PATRICIA Miles. The patient was states that she took the medications that I prescribed her however she states she was not feeling any better so she will return to the ER. At the time of her last visit she was also a leukopenic which she was attributed to her leukemia. For the most part she feels the same she denies any worsening symptoms. The lesions on her lips have resolved. Medication Reconciliation Allergies: Coded Allergies: tramadol (Verified Allergy, Severe, SEIZURES, 10/02/24) lowers seizure threshold therefore has more seizures Iodinated Contrast Media (Unverified Allergy, Unknown, 10/02/24) hives but is willing to take if have benedryl on board dextrose 5 % in water (Verified Allergy, Unknown, RAISED RASH, 10/02/24) raised rash - could possibly take w/benedryl linezolid (Verified Allergy, Unknown, RAISED RASH, 10/02/24) rash - able to take w/benedryl prochlorperazine edisylate (Verified Allergy, Unknown, 10/02/24) makes mood change to mean/angery per patient report prochlorperazine maleate (Verified Allergy, Unknown, 10/02/24) per patient changes mood to angry vancomycin (Verified Allergy, Unknown, 10/02/24) hives - maybe able to take with benedryl ketorolac (Unverified Adverse Reaction, Severe, seizures, 09/27/24) Patient states this medication has caused her to have seizures. Uncoded Allergies: IV CONTRAST (Allergy, Unknown, 02/08/15) Scheduled Amitriptyline Hcl* (Elavil*), 200 MG PO HS, (Reported) Amox Tr/Potassium Clavulanate 875/125 MG (Augmentin 875/125 MG), 1 TAB PO Q12H Cyclobenzaprine* (Cyclobenzaprine*), 1 TAB PO Q8H Estradiol* (Estrace*), 1 TAB PO DAILY, (Reported) Gabapentin (Gabapentin), 3 CAP PO DAILY, (Reported) Hydrocodone Bit/Acetaminophen 5/325 MG ([place] 5/325 MG), 1-2 TAB PO Q4-6 hours Lamotrigine (LaMICtal tablet), 2 TAB PO DAILY, (Reported) Valacyclovir HCl (Valacyclovir), 1 TAB PO DAILY Scheduled PRN Lorazepam (Ativan), 1 TAB PO QDAY PRN PRN for anxiety, (Reported) Promethazine Hcl (Promethazine Hcl), 1 SUPP RC BID PRN for motion sickness, (Reported) Rimegepant Sulfate (Nurtec Odt), 1 TAB SL DAILY PRN for migraine headaches Sumatriptan Succinate* (Imitrex Tab*), 4 TAB PO PRN PRN for headache, (Reported) Miscellaneous Medications Fremanezumab-Vfrm (Ajovy Autoinjector), (Reported) Discontinued Medications Gabapentin (Gabapentin), 1 CAP PO HS, (Reported) Discontinued Reason: patient no longer taking Hydrocodone Bit/Acetaminophen 5/325 MG ([place] 5/325 MG), 1 TAB PO Q6H PRN for pain Discontinued Reason: patient no longer taking Past Medical History Past Medical History: Headache, Migraine, Seizures, Pneumonia, *GI/HEPATOBILIARY*, Anemia, Liver Disease, Hernia, Chronic Pain, Chronic Back Pain, Extremity Fracture, Cellulitis, Leukemia, Anxiety, Bipolar, Depression Past Surgical History: abdominal surgery, cholecystectomy, coronary bypass surgery, hysterectomy, other Other Past Surgical History: bone marrow transplant, abdominal wound vac Alcohol Use: None Drug Use: none Lives with: Family Lives In: Home Occupation: employed Physical Exam Physical Exam Vital Signs: Temperature: 98.8, Source: Oral, Heart Rate: 117, Respiratory Ra te: 17, BP: 155/118, Pulse Oximetry: 99, Weight: 57.400 Pulse Oximetry Reflects: adequate oxygenation General Appearance: alert, WD/WN, no apparent distress EENT The aphthous ulcers that I appreciate on her lower lips last week have resolved however she continues to have the ulceration in the left mandibular gumline adjacent to the buccal mucosa. Again there was no appreciable edema of the outer skin of the face or fluctuance. The area is beer still runner compounder to palpation. Respiratory No accessory muscle use or retractions. Lungs are clear to auscultation all andres Neurologic: oriented x4, governor assembler II-XII nml as tested Motor / Sensory: no motor deficit Skin: normal color, warm/dry Progress Results/Orders Reviewed/noted all lab results: Yes Results/Orders Orders - JORDAN HERNANDEZ Culture Blood (10/01/24 15:52) Saline Lock (10/01/24 ) Completed Orders - JORDAN HERNANDEZ Electrocardiogram (10/01/24 15:52) Cbc/Diff (10/01/24 15:52) MG (10/01/24 15:52) Urinalysis, Cult If Indicated (10/01/24 15:52) Hcg, Ur Ql (10/01/24 15:52) Procalcitonin (10/01/24 15:52) Lacticsepsis (10/01/24 15:52) CMP (10/01/24 15:52) Man Diff (10/01/24 16:08) Acyclovir Inj (Zovirax Inj) (10/01/24 16:40) Hydromorphone 1 Mg/Ml/Pf (Dilaudid Inj.) (10/01/24 16:40) Ondansetron Inj. (Zofran 4mg/2ml Vial) (10/01/24 16:40) Normal Saline 1000ml (Sodium Chloride 10 (10/01/24 16:40) Piperacillin/Tazo 3.375gm/50ml (Zosyn 3. (10/01/24 16:45) Acyclovir Inj (Zovirax Inj) (10/01/24 16:52) Acyclovir Inj (Zovirax Inj) (10/01/24 17:05) Fentanyl/Pf (Fentanyl 0.05 Mg/Ml Syringe (10/01/24 17:40) Diphenhydramine Inj (Benadryl Inj.) (10/01/24 18:00) Fentanyl/Pf (Fentanyl 0.05 Mg/Ml Syringe (10/01/24 20:00) Vital Signs 10/01/24 10/01/24 10/01/24 10/01/24 15:47 16:56 16:57 17:05 Temp 98.8 Pulse 117 89 Resp 17 16 16 16 B/P (MAP) 155/118 152/103 (119) Pulse Ox 99 97 O2 Flow Rate 0 10/01/24 10/01/24 10/01/24 10/01/24 17:40 17:56 18:05 18:20 Resp 16 16 16 18 B/P (MAP) 10/01/24 10/01/24 10/01/24 10/01/24 18:33 20:09 20:15 23:45 Pulse 90 90 75 Resp 16 16 18 18 B/P (MAP) 144/107 (119) 148/109 (122) 147/79 (101) Pulse Ox 98 98 96 10/02/24 10/02/24 10/02/24 10/02/24 00:20 00:25 01:12 01:45 Pulse 97 99 Resp 18 18 16 18 B/P (MAP) 149/110 (123) 149/126 (134) Pulse Ox 100 99 Laboratory Tests Test 10/01/24 16:08 10/01/24 17:07 White Blood Count 1.4 L Red Blood Count 4.09 L Hemoglobin 12.9 Hematocrit 36.6 Mean Corpuscular Volume 89.7 Mean Corpuscular Hemoglobin 31.5 H Mean Corpuscular Hemoglobin Concent 35.2 Red Cell Distribution Width 13.3 Platelet Count 108 L Mean Platelet Volume 6.8 L Neutrophils (%) (Auto) 19.0 L Lymphocytes (%) (Auto) 61.7 H Monocytes (%) (Auto) 15.9 H Eosinophils (%) (Auto) 2.5 Basophils (%) (Auto) 0.9 Neutrophils # (Auto) 0.3 L Lymphocytes # (Auto) 0.9 L Monocytes # (Auto) 0.2 Eosinophils # (Auto) 0.0 Basophils # (Auto) 0.0 CBC Comment Differential Total Cells Counted 100 Neutrophils % (Manual) 19.0 L Lymphocytes % (Manual) 63.0 H Monocytes % (Manual) 16.0 H Eosinophils % (Manual) 2.0 Platelet Estimate Decreased Red Blood Cell Morphology Perf Basophilic Stippling Sodium Level 141 Potassium Level 3.5 Chloride Level 104 Carbon Dioxide Level 24.3 Anion Gap 13 Blood Urea Nitrogen 17 Creatinine 0.92 H Estimated GFR/1.73 m2 69 BUN/Creatinine Ratio 18.5 Glucose Level 110 H Lactic Acid Level 0.7 Calcium Level 9.4 Magnesium Level 1.7 Total Bilirubin 0.7 Aspartate Amino Transf (AST/SGOT) 38 H Alanine Aminotransferase (ALT/SGPT) 134 H Alkaline Phosphatase 350 H Total Protein 7.5 Albumin 4.0 Globulin 3.5 Albumin/Globulin Ratio 1.1 Procalcitonin < 0.05 Chemistry Comments Urine Specimen Description Non-specified Urine Color Yellow Urine Clarity Clear Urine pH 6.0 Urine Specific [place] 1.010 Urine Protein Negative Urine Glucose (UA) Negative Urine Ketones Negative Urine Occult Blood Negative Urine Nitrite Negative Urine Bilirubin Negative Urine Urobilinogen 1.0 Urine Leukocyte Esterase Negative Urine Culture Indicated Not ind Volume Urine Centrifuged 10 ml Urine HCG, Qualitative Negative Urine Comment Microbiology Date/Time Source Procedure Growth Status 10/01/24 16:48 Blood Iv Start Blood Culture - Preliminary NEGATIVE (LESS THAN 24 HOURS) Resulted Medical Decision Making Findings The patient was continued to be leukopenic with a white count of 1.4. This is the same as her last visit. I ordered weight based acyclovir at 10 milligrams/kilogram which was calculated by the pharmacist. I also ordered Zosyn 3.375 g IV. The patient was given Dilaudid 1 g IV however she states it did not help her pain so I gave her fentanyl 50 mcg IV. She also received Zosyn 4 mg IV. I did not repeat a CT scan as it was negative very recently and there was no appreciable swelling and I do not feel the patient has a fluid collection or drainable abscess. I believe the wound is with the mouth has a oral ulcer which is similar to the aphthous ulcer she previously had. The patient has failed outpatient therapy in his this point I believe would benefit from admission. Differential Diagnosis Oral ulcers. Stomatitis. Dental infection. Leukopenia. Departure Impression: Primary Impression: Leukopenia Additional Impressions: Oral ulcer Mastoiditis of left side Referrals: NO PRIMARY CARE PROVIDER (PCP) Additional Comment Addendum I received this patient at sign-out, see the previous provider note for full information. Briefly: The patient has a history of leukopenia and jaw pain. She was seen 4 days ago and had a CT scan of her face that she had possible mastoiditis, but declined transfer and was discharged on antibiotics. She returns today with worsening pain. She was given antibiotics and valacyclovir. She required significant pain medications. Efforts were made to transfer her to the hospital for ENT evaluation, but they were not able to find an available bed and/or ENT service. Pending ENT consult/possible transfer. Re-evaluation: I examined the patient. It seems like her pain is primarily over the muscles and bones of the left lower jaw. Her face does appear swollen in this area without significant skin changes. She has some mild tenderness on palpation around the mastoid region of her skull as well. On intraoral exam she also has what appears to be an open ulcer in the left lower mouth lateral to the tongue. Consult: I spoke to the transfer center in [place]. Dr. Lin, ENT was consulted. His recommendations were IV antibiotics and monitor for 24 hours, and that emergent transfer was probably not indicated. Given the diagnostic dilemma what the actual source of her pain and possible infection are, I then repeated the CT scan of her face and mastoid process. This shows some inflammatory changes around the masseter muscle and jaw, that could be cellulitis. No significant changes to the mastoid region. No abscess or other indication for emergent surgical intervention. Consult: I then spoke to the medicine service for admission for IV antibiotics. This seems reasonable given that she likely has an infection but has no findings to warrant emergent surgical intervention. If she does develop worsening symptoms they could consider transfer at a later time. Lul Kelly MD Signature Scribe Signature: na Attestation: JORDAN Gonsales Oct 01, 2024 16:27 LUL KELLY MD Oct 02, 2024 04:19
[2024-10-01 16:31] LABS: ALANINE AMINOTRANSFERASE 134 U/L (12-78); ALBUMIN/GLOBULIN RATIO 1.1 (1.1-1.5); ALKALINE PHOSPHATASE 350 IU/L (46-116); ANION GAP 13 (8-16); ASPARTATE AMINO TRANSFERASE 38 U/L (10-37); BILIRUBIN,TOTAL 0.7 MG/DL (0.1-1.0); BLOOD UREA NITROGEN 17 MG/DL (7-18); BUN/CREATININE RATIO 18.5 (10.0-20.0); CALCIUM 9.4 MG/DL (8.5-10.1); CHLORIDE 104 MMOL/L (99-107); CREATININE 0.92 MG/DL (0.40-0.90); GLUCOSE 110 MG/DL (70-104); MAGNESIUM 1.7 MG/DL (1.5-2.4); POTASSIUM 3.5 MMOL/L (3.5-5.1); SODIUM 141 MMOL/L (135-145); TOTAL CARBON DIOXIDE 24.3 MMOL/L (24-32); TOTAL PROTEIN 7.5 G/DL (6.4-8.2); eCRCL 74 ML/MIN; eGFR 69 ML/MIN
[2024-10-01] MEDS ORDERED: acyclovir inj 1,000 MG in normal saline 250ml IV soln 230 ML IV ONE (16:40)
[2024-10-01] MEDS ORDERED: acyclovir inj 1,000 MG in normal saline 250ml IV soln 250 ML IV ONE (16:52)
[2024-10-01] MEDS: ondansetron/PF 4mg/2ml inj IV ONE (16:56)
[2024-10-01] MEDS: normal saline 1000ml 1,000 ML IV ONE (16:56)
[2024-10-01] MEDS: HYDROmorphone 1 mg/ml syringe IV ONE (16:56)
[2024-10-01 17:17] LABS: BILIRUBIN,URINE NEGATIVE (Neg); CLARITY,URINE CLEAR (Clear); COLOR,URINE YELLOW (Yellow); GLUCOSE, URINE NEGATIVE (Neg); KETONES,URINE NEGATIVE (Neg); LEUKOCYTE ESTERASE ,URINE NEGATIVE (Neg); NITRITES, URINE NEGATIVE (Neg); OCCULT BLOOD,URINE NEGATIVE (Neg); PROTEIN,URINE NEGATIVE (Neg)
[2024-10-01 17:18] LABS: URINE HCG NEGATIVE (NEG)
[2024-10-01 17:19] LABS: UA COLLECTION TYPE NON-SPECIFIED
[2024-10-01] MEDS: ACYCLOVIR IV ONE (17:23)
[2024-10-01] MEDS: NORMAL SALINE IV ONE (17:23)
[2024-10-01 17:50] LABS: PLATELET ESTIMATE DECREASED; TOTAL CELLS COUNTED 100
[2024-10-01] MEDS: fentaNYL/PF 50MCG/1 ML 2ML syringe IV ONE ×2 (17:56→20:09)
[2024-10-01] MEDS: diphenhydrAMINE 50 mg/ml inj IV ONE (18:04)
[2024-10-01] MEDS: piperacillin/tazo 3.375gm/50ml 50 ML IV ONE (18:44)
[2024-10-02] MEDS: HYDROmorphone 1 mg/ml syringe IV ONE ×2 (00:20→04:17)
[2024-10-02] MEDS: diphenhydrAMINE 50 mg/ml inj IV ONE (00:20)
[2024-10-02] MEDS ORDERED: iohexol 300 MG/1 ML 50ml polymer ONE (00:38)
[2024-10-02] MEDS ORDERED: iohexol 300mg/ml 100ml inj. ONE (00:38)
--- NOTE | 2024-10-02 02:00 | RADIOLOGY REPORT ---
Clinical History Left-sided jaw pain and swelling, pain around the left mastoid region Comparison CT FACIAL BONES on 09/27/2024, 372 images. Technique: contrast-enhanced CT volume data acquisition of the face presented in axial, coronal and s agittal planes All CT scans at this medical facility are performed using dose modulation techniques as appropriate t o a performed exam including the following: Automated exposure control was utilized; adjustment of th e mA and/or kV according to patient size; and use of iterative reconstruction technique. All CT studies are reported to the Dose Index Registry of the [employer]. Contrast: OMNI 300 75ML Radiation Dose: CTDI (mGy): 54.18; DLP (mGy-cm): 968.42 GOLDEN SANG, [id number] FINDINGS: The examination is compared to prior CT dated 09/27/24 at 3:42 PM. Again noted is postop change with left mastoidectomy and implanted device in place, stable in appeara nce. Residual left mastoid air cells are opacified as on prior study. Left ossicular chain appears intact, left inner ear structures unremarkable on this study. Right mastoids are clear, right middle ear spaces unremarkable, right inner ear structures unremarkab le. External auditory canals are unremarkable bilaterally. There is minimal fat stranding overlying the left masseter muscle anteriorly, perhaps slightly less c onspicuous than on prior study, possible mild cellulitis. There is no evidence of organized/drainabl e collection, no findings to suggest abscess, no mass or pathologic adenopathy evident. Nasopharynx, oropharynx and hypopharynx are unremarkable, glottis and epiglottis normal. Parotid glands and submandibular salivary glands are unremarkable. Osseous structures do not suggest acute pathology, patient is edentulous. Orbits and orbital contents are unremarkable, paranasal sinuses clear. Intracranial structures imaged on this study do not suggest acute pathology. IMPRESSION: 1. Minimal fat stranding overlying left masseter muscle primarily anteriorly, perhaps slightly less conspicuous than on prior study, possible mild cellulitis. No evidence of organized/drainable collec tion/abscess, no evidence of mass or pathologic adenopathy. 2. Postop left mastoids with implanted device, stable in appearance compared to prior study 3. Residual left mastoids are opacified, as on prior study, possible effusion or mastoiditis. 4. Patent airway, normal epiglottis This report was electronically signed by Mitchel Taveras MD on 10/02/2024 1:56:25 AM.
--- NOTE | 2024-10-02 02:08 | RADIOLOGY REPORT ---
Clinical History Left-sided jaw pain and swelling, pain around the left mastoid region Comparison FACIAL BONES on 10/02/2024, 319 images. Technique: CT volume data acquisition of the temporal bones presented in axial, coronal and sagittal planes All CT scans at this medical facility are performed using dose modulation techniques as appropriate t o a performed exam including the following: Automated exposure control was utilized; adjustment of th e mA and/or kV according to patient size; and use of iterative reconstruction technique. All CT studies are reported to the Dose Index Registry of the [employer]. Contrast: OMNI 300 75ML Radiation Dose: CTDI (mGy): 62.81; DLP (mGy-cm): 523.24 SANG FRANKS, [id number] FINDINGS: Right temporal bone is incompletely imaged on this study. Imaged portions of right mastoid air cells are clear, right ear structures are unremarkable on this s tudy. Right ossicular chain appears intact, portions excluded. Imaged portion of right external auditory canal is unremarkable. Left mastoidectomy with left cochlear implant again noted. The device appears to be in appropriate p osition. Most of the remaining left mastoid air cells are opacified which could be effusion or mastoiditis. T here is no evidence to suggest coalescence/osteomyelitis on this study. IMPRESSION: 1. Partial left mastoidectomy with left cochlear implant in expected position. 2. Remaining left mastoid air cells are opacified suggesting effusion or mastoiditis. Recommend cli nical correlation and correlation with lab values. 3. No evidence to suggest coalescence/osteomyelitis on this study. This report was electronically signed by Mitchel Taveras MD on 10/02/2024 2:05:01 AM.
[2024-10-02] MEDS: normal saline 1000ml 1,000 ML IV SCH (03:20)
--- NOTE | 2024-10-02 03:40 | HISTORY AND PHYSICAL-Residence ---
History & Physical Providers to CC Resident Creating Document: FARZANEHAIDANPEGGY, ML ~ History of Present Illness Primary Medical Doctor: Dr. Schmitt Reason for Admit\Complaint: Jaw Pain and swelling History of Present Illness Patient is a 34-year-old female with a history of myelodysplastic syndrome, TERESA leukemia, status post bone marrow transplantation in 2013,and Partial left mastoidectomy with left cochlear implant presents to ER with persistent left jaw pain. She reports the pain began around Easter, initially associated with significant swelling and tenderness of her left jaw. Although the swelling has improved, the pain persists along the left gumline, where she notes an enlarging ulcer, large enough that she can insert her tongue into it. She endorses mild odynophagia, however, she denies any fever, chills, or shortness of breath. CT scan of the head demonstrated mild fat stranding over the anterior masseter muscle, suggestive of earlly or mild cellulitis, with no evidence of abscess formation. WBC is 1.4 consistent with significant leukopenia. The ER physician consulted in ENT specialists in [place], who reviewed the imaging and recommended initiation of antibiotics therapy without the need for transfer. I have discussed advance care planning with the patient. The patient has decided on a full code status. I also spoke to her mom, who is her caregiver, reporting that patient has suspected Crohn disease; colonoscopy is not convenient in town because of multiple abdominal surgeries and residual scars. The patient remains clinically stable but is at high risk for infectious complication given her immunocompromised status. Breasts suppressed Bactrim antibiotics have been started, and she will be closely monitor for any signs of clinical deterioration. Allergies: Coded Allergies: tramadol (Verified Allergy, Severe, SEIZURES, 10/01/24) Iodinated Contrast Media (Unverified Allergy, Unknown, 10/01/24) dextrose 5 % in water (Verified Allergy, Unknown, RAISED RASH, 10/01/24) linezolid (Verified Allergy, Unknown, RAISED RASH, 10/01/24) prochlorperazine edisylate (Verified Allergy, Unknown, 10/01/24) prochlorperazine maleate (Verified Allergy, Unknown, 10/01/24) vancomycin (Verified Allergy, Unknown, 09/27/24) ketorolac (Unverified Adverse Reaction, Severe, seizures, 09/27/24) Patient states this medication has caused her to have seizures. Uncoded Allergies: IV CONTRAST (Allergy, Unknown, 02/08/15) Home Medications Home Medications Active [place] 5/325 MG (Acetaminophen/Hydrocodone Bitart) 5 Mg/325 Mg Tablet 1 Tab PO Q6H PRN Augmentin 875/125 MG (Amoxicillin/Clavulanate Potassium) 875 Mg-125 Mg Tablet 1 Tab PO Q12H 14 Days Valacyclovir (Valacyclovir HCl) 1,000 Mg Tablet 1 Tab PO DAILY 10 Days [place] 5/325 MG (Acetaminophen/Hydrocodone Bitart) 5 Mg/325 Mg Tablet 1-2 Tab PO Q4-6 HOURS Cyclobenzaprine* (Cyclobenzaprine HCl) 10 Mg Tablet 1 Tab PO Q8H 10 Days Nurtec Odt (Rimegepant Sulfate) 75 Mg Tab.rapdis 1 Tab SL DAILY PRN Reported Promethazine Hcl 25 Mg Supp.rect 1 Supp RC BID PRN Ajovy Autoinjector (Fremanezumab-Vfrm) 225 Mg/1.5 Ml Auto.injct Ativan (Lorazepam) 0.5 Mg Tablet 1 Tab PO QDAY PRN PRN 30 Days Estrace* (Estradiol) 1 Mg Tablet 1 Tab PO DAILY 30 Days Imitrex Tab* (Sumatriptan Succinate) 25 Mg Tablet 4 Tab PO PRN PRN give 4 tablets at onset of headache. May repeat in 2 hours as needed for headache. Do not exceed 200mg/day total. Gabapentin 300 Mg Capsule 1 Cap PO HS 30 Days Gabapentin 300 Mg Capsule 3 Cap PO DAILY Elavil* (Amitriptyline HCl) 50 Mg Tablet 200 Mg PO HS Past Medical History Past Medical History MDS, leukemia Past Surgical History Surgical History Comment 29 abdominal surgeries S/P cochlear implant Past Social History Social History Comment Lives with her mom, who is also her caregiver, denies smoking cigarettes, consuming alcohol, or using recreational drugs. Smoking: Non-Smoker Alcohol Use: None Drug Use: None Lives with: Family Lives In: Home Occupation: employed ROS All Other Systems: Reviewed and Negative ROS As stated above in the HPI, otherwise all systems are reviewed and negative. Exam Vitals: Vital Signs Date Time Temp Pulse Resp B/P (MAP) Pulse Ox O2 Delivery O2 Flow Rate FiO2 10/02/24 01:45 99 18 149/126 (134) 99 10/01/24 17:05 0 10/01/24 15:47 98.8 General: Awake and Alert, no acute distress. HEENT: Conjunctiva pink, Sclera clear, Mucus Membranes moist. Neck: Left mandibular tenderness, no erythema or swelling. In open ulcer and left gumline Resp: Unlabored. Lungs clear to auscultation bilaterally. Heart: Regular Rate and rhythm, normal S1 and S2 without murmur, rub or gallop. Abdomen: Soft and non tender no organomegaly Extremities: No cyanosis,clubbing or edema. Skin: Warm and Dry. Diagnostic Data Last Recorded Lab Results: 10/01/24 1608 10/01/24 1608 Advance Care Planning Advanced Care plannin - 30 Minutes Additional Plan Assessment and plan: Patient is a 34-year-old female with a history of MDS, GI DA leukemia, status post chemotherapy and bone marrow transplant in 2013, presenting with left jaw pain and an enlarging oral ulcer. CT scan finding are suggestive of mild cellulitis over the left masseter muscle and possible mastoiditis. She is severely immunocompromised, with a WBC count of 1.4, placing her at high risk for infection. Given her neutropenic status, the patient requires prompt antibiotic therapy to prevent further complications. Left jaw pain Cellulitis of left masseter muscle, possible mastoiditis Aphthous stomatitis Leukopenia, neutropenic S/P bone marrow transplant and chemotherapy Source; painful open ulcer and left gumline Zosyn, clindamycin, and acyclovir initiated Neutropenic precautions requested Suspected Crohn disease: Not active; With multiple flare-ups in the past Colonoscopy not done yet EGD showed gastritis Peggy Beltrán Internal Medicine Resident Date of Service: Oct 02, 2024 Billing Provider: COURTNEY CASTILLO MD,PEGGY, RES Oct 02, 2024 03:39
[2024-10-02] MEDS: acyclovir inj 500 MG in normal saline 100ml IV soln 100 ML IV SCH (06:06)
[2024-10-02] MEDS: HYDROcodone/acetaminophen 5mg/325mg tablet PO PRN (06:14)
[2024-10-02] MEDS: ondansetron/PF 4mg/2ml inj IV ONE (06:45)
[2024-10-02] MEDS: clindamycin 300mg/D5W 50mL 50 ML IV SCH (08:00)
[2024-10-02] MEDS: piperacillin/tazo 3.375gm/50ml 50 ML IV SCH (09:30)
[2024-10-02 10:00] VITALS: BP 144/88; PULSE 87; RESP 16; TEMP 97.5; O2SAT 100
[2024-10-02] MEDS ORDERED: LAMO25TA94 PO (10:16)
[2024-10-02] MEDS: diphenhydrAMINE 50 mg/ml inj IV PRN (10:47)
[2024-10-02] MEDS: HYDROmorphone inj. 0.5 MG/0.5 ML DISP.SYRIN IV PRN (11:03)
[2024-10-02 14:14] LABS: APTT 34 SECONDS (22-32); PROTHROMBIN TIME 10.3 SECONDS (9.0-12.0)
[2024-10-02] MEDS ORDERED: POLY17PO10 PO (15:22)
[2024-10-02] MEDS: polyethylene glycol 3350 17gm powd pack PO SCH (17:09)
[2024-10-02 18:00] VITALS: BP 129/90; PULSE 99; RESP 21; TEMP 97.3; O2SAT 100
[2024-10-02] MEDS: ondansetron/PF 4mg/2ml inj IV PRN (18:04)
[2024-10-02] MEDS: proMETHazine 25mg rectal suppository RC PRN (21:15)
[2024-10-02 22:00] VITALS: BP 128/98; PULSE 86; RESP 20; TEMP 98.3; O2SAT 97
[2024-10-03] VITALS (7 sets, daily range): BP systolic 124–174; BP diastolic 81–117; PULSE 72–117; RESP 14–18; TEMP 97.7–99; O2SAT 98–99
[2024-10-03] MEDS: gabapentin 300mg capsule PO SCH (07:56)
[2024-10-03] MEDS: lamoTRIgine 25mg tablet PO SCH (07:59)
[2024-10-03 08:18] LABS: ALANINE AMINOTRANSFERASE 125 U/L (12-78); ALBUMIN 3.7 G/DL (3.4-5.0); ALBUMIN/GLOBULIN RATIO 1.2 (1.1-1.5); ALKALINE PHOSPHATASE 304 IU/L (46-116); ANION GAP 8 (8-16); ASPARTATE AMINO TRANSFERASE 57 U/L (10-37); BLOOD UREA NITROGEN 11 MG/DL (7-18); BUN/CREATININE RATIO 16.4 (10.0-20.0); CALCIUM 8.9 MG/DL (8.5-10.1); CHLORIDE 105 MMOL/L (99-107); CREATININE 0.67 MG/DL (0.40-0.90); GLUCOSE 112 MG/DL (70-104); POTASSIUM 3.7 MMOL/L (3.5-5.1); SODIUM 138 MMOL/L (135-145); TOTAL CARBON DIOXIDE 24.9 MMOL/L (24-32); TOTAL PROTEIN 6.9 G/DL (6.4-8.2); eCRCL 101 ML/MIN; eGFR > 90 ML/MIN
[2024-10-03 08:22] LABS: BASOPHILS % (AUTO) 1.5 % (0-1); EOSINOPHILS # (AUTO) 0.1 X10'3 (0-0.9); EOSINOPHILS % (AUTO) 5.3 % (0-6); HEMATOCRIT 35.3 % (35.0-45.0); LYMPHOCYTES # (AUTO) 0.6 X10'3 (1.1-4.8); LYMPHOCYTES % (AUTO) 57.7 % (21-51); MEAN CORPUSCULAR HEMOGLOBIN 30.9 PG (27.0-31.0); MONOCYTES # (AUTO) 0.2 X10'3 (0-0.9); MONOCYTES % (AUTO) 22.1 % (2-12); NEUTROPHILS # (AUTO) 0.1 X10'3 (1.8-7.7); NEUTROPHILS % (AUTO) 13.4 % (42-75); PLATELET COUNT 90 X10'3 (140-440); RED BLOOD COUNT 3.88 X10'6 (4.20-5.60); RED CELL DISTRIBUTION WIDTH 13.7 % (11.5-14.5)
[2024-10-03 12:15] LABS: C-REACTIVE PROTEIN 0.15 MG/DL (0.0-0.5)
[2024-10-03 12:36] LABS: HIV ANTIBODY 1&2 RAPID NON-REACTIVE (Neg)
--- NOTE | 2024-10-03 15:55 | PROGRESS NOTE- Residence ---
Progress Note - Resident Providers to CC Resident Creating Document: HIMA ALVARADO RES ~ Antibiotic Timeout Antibiotic Ordered?: Yes Subjective Patient seen and examined at the bedside, complaint of left jaw pain same as yesterday Denied chest pain shortness of breath coughing or any other symptoms Objective Vital Signs Date Time Temp Pulse Resp B/P (MAP) Pulse Ox O2 Delivery O2 Flow Rate FiO2 10/03/24 12:58 14 10/03/24 08:00 Room Air 0.0 10/03/24 06:00 97.8 72 124/81 (95) 99 Result Diagram: 10/03/24 0730 10/03/24 0730 General: Awake and Alert, no acute distress. HEENT: Conjunctiva pink, Sclera clear, Mucus Membranes moist. Left mandibular tenderness, no erythema Aphthous ulcer on the left side Neck: Supple without masses and tenderness. Resp: Lungs clear to auscultation bilaterally. Heart: Regular Rate and rhythm, normal S1 and S2 without murmur, Abdomen: Multiple abdominal scar from previous surgeries, Soft and non tender no organomegaly Extremities: No cyanosis,clubbing or edema. Skin: Warm and Dry, no petechia purpura Neurological: Speech is clear, alert, and oriented x 4, no gross neurological deficits Coagulation Studies Laboratory Tests Test 10/02/24 13:44 Prothrombin Time 10.3 SECONDS (9.0-12.0) INR International Normalized Ratio 1.0 INR Activated Partial Thromboplast Time 34 SECONDS (22-32) H Coagulation Comments Plan Plan Patient is a 34-year-old female with a history of MDS, leukemia, status post chemotherapy and bone marrow transplant in 2013, presenting with left jaw pain and an enlarging oral ulcer. Admitted with following workup/and treatment Left jaw pain Cellulitis, possible mastoiditis Aphthous stomatitis Leukopenia, Neutropenia Flu negative, RPR, CMV, EBV, HIV pending ESR is elevated Blood culture is negative History of leukemia status post bone transplant in 2014 Partial left mastoidectomy with left cochlear implant presents around [address] scan finding are suggestive of mild cellulitis over the left masseter muscle and possible mastoiditis. She is severely immunocompromised, with a WBC count of 1.4, placing her at high risk for infection. Given her neutropenic status, the patient requires prompt antibiotic therapy to prevent further complications. MRI ordered however due to cochlear implant, it is unlikely to get a good imaging as MRI team mentioned Dr. 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 Sphinteotomy 03/01 underwent liver biopsy in [facility] as patient report there was no any cirrhosis, following Dr Barclay at [facility] Abdominal ultrasound ordered Code Status: Full DVT prophylaxis: SCDs Analgesia/sedation: [place], Tylenol Line/tube: Peripheral GI prophylaxis: None Nutrition: Neutropenic diet PT: Yes Prognosis: Guarded Disposition: Continue monitoring patient in ortho floor, viral panel pending Hima Alvarado MD Internal Medicine Resident Date of Service: Oct 03, 2024 Billing Provider: BRIAN MCINTYRE MD, ELAHE, RES Oct 03, 2024 15:55
--- NOTE | 2024-10-03 17:39 | RADIOLOGY REPORT ---
Procedure: US ULTRASOUND OF ABDOMEN 10/03/2024 02:57 PM Indication: Elevated liver function test Comparison: US ULTRASOUND OF ABDOMEN on DOS: 03/13/24, US ULTRASOUND OF ABDOMEN on DOS: 02/15/24, US ULT RASOUND OF ABDOMEN on DOS: 05/11/23 Technique: Grayscale and color images of the right upper quadrant were obtained. FINDINGS: ASCITES: None. LIVER: Liver measures 17.3 cm in craniocaudal. Liver parenchyma is diffusely echogenic. No focal les ion is identified. No intrahepatic ductal dilatation. Normal directional flow is seen in the portal vein. GALLBLADDER: Surgically absent. COMMON BILE DUCT: 0.3 cm in caliber. PANCREAS: Visualized portions are unremarkable. RIGHT KIDNEY: 10.5 cm in length. No hydronephrosis. No lesions identified. AORTA, IVC: Visualized portions are unremarkable. OTHER: None. IMPRESSION: 1. No sonographic evidence for acute abnormality in the right upper quadrant. 2. Hepatic steatosis. 3. Status post cholecystectomy.
--- NOTE | 2024-10-03 18:33 | CONSULTATION ---
DATE OF CONSULTATION: 10/03/2024 DICTATING PHYSICIAN: Brandon Pérez MD REASON FOR CONSULTATION: I am seeing the patient at the request of Dr. Prieto for evaluation of mouth ulceration and neutropenia. HISTORY OF PRESENT ILLNESS: The patient is a 34-year-old female who is known to me from many years ago when her immunodeficiency had not been diagnosed. 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 She underwent allogeneic stem cell transplantation at [facility] back in 2013 under the care of Dr. Raya. She eventually came off immunosuppressive therapy and she states that she no longer takes any prophylactic antibiotics. She is still being followed by Dr. Barclay at [facility] for abnormal liver function tests of unclear etiology. Interestingly, this was a problem even before transplant when I used to see her. She states that she had an ERCP last fall and was diagnosed with sphincter of OD dysfunction. She states that she has not been doing well since that time. She has lost weight. She has chronic abdominal symptoms. She recently had an EGD locally, but she apparently needs to go back down to the [place] for colonoscopy. She does describe constipation along with her weight loss. She actually came to the hospital because she had developed ulceration at the left side of her mouth. She has dentures in place, with no remaining teeth. The area of ulceration is localized just lateral to the left mandible. The area is very tender. She describes pain at the left side of her face. When she came into the hospital, she was also found to be neutropenic. She was admitted to the residence service and she was placed on Zosyn and clindamycin along with acyclovir. Interestingly, I took care of her long ago when she had disseminated HSV. She denies any other rash or skin lesions. Her breathing is stable. She has a seizure disorder at baseline, but no recent neurological changes. She is uncomfortable with the pain, but she is scared about her current blood counts. She is followed by Kendrick Schmitt locally. 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 * Chronically abnormal liver function tests of unclear etiology. * History of disseminated HSV. * Seizure disorder. * Hearing impairment. PAST SURGICAL HISTORY: * She has had numerous abdominal surgeries including hysterectomy, cholecystectomy and hernia repairs. * Cochlear implantation. ALLERGIES: * IODINATED CONTRAST. * LINEZOLID. * VANCOMYCIN. MEDICATIONS: * Zosyn. * Clindamycin. * Acyclovir. * Lamictal. * Gabapentin. * MiraLax. FAMILY HISTORY: Noncontributory. SOCIAL HISTORY: I believe she still lives with her mom here in [place]. She is disabled. I do not believe she smokes or drinks alcohol. PHYSICAL EXAMINATION: VITAL SIGNS: She is afebrile with stable vital signs, currently on room air. GENERAL: She is a very pleasant middle-aged female lying in bed, looking stable. HEENT: Sclerae anicteric. Mouth was examined. She does have dentures in place. She has an area of ulceration at the mucosa just lateral to the left mandibular area. No other oral lesions were seen. NECK: Supple with no significant adenopathy. LUNGS: Clear to auscultation bilaterally. HEART: Regular rate and rhythm. ABDOMEN: Soft without significant distention. EXTREMITIES: No edema. SKIN: No rash. LABORATORY DATA: Her white blood cell count is down to 1000 with an absolute neutrophil count of 100. Platelets have also dropped to 90,000. Hemoglobin is 12. Creatinine 0.67, AST 57, ALT 125. Procalcitonin negative. Lactate negative. Urinalysis negative. Testing for influenza negative. Blood cultures are pending. CT imaging was unremarkable except for possible opacification of the left mastoid, although she does have a cochlear implant at that side. IMPRESSION: * Painful mouth ulceration at the left mandibular area of unclear etiology. It is unclear if this is related to an injury at that site versus infection (more likely viral) versus immune-mediated. * Neutropenia and thrombocytopenia that appears to be new and definitely concerning given her history. * Abnormal liver function tests that have been chronically problematic. She is followed by Dr. Barclay. * Weight loss and constipation, awaiting lower endoscopy. * GATA2 mutation and myelodysplasia, status post allogeneic stem cell transplantation in 2014. I doubt graft versus host disease is playing a role, but should be considered. RECOMMENDATIONS: She will continue with Zosyn for now. Acyclovir is also reasonable to continue for now. Clindamycin will be stopped. We will see if she improves with this therapy. She likely will need additional evaluation and workup. The two dominant specialties that she needs are Hematology and ENT, neither of which are at this facility. She may eventually need biopsy of the ulcerated lesion and she may need bone marrow biopsy. This would certainly require transfer from this facility versus outpatient evaluation. We will see how her counts behave in the coming days and see if her ulcer remains stable. Acyclovir should provide coverage of HSV and VZV, but she will be evaluated for few other infections with EBV PCR, CMV PCR, HIV test and RPR. I will continue to follow the patient closely and I thank you for allowing me to participate in her care. 90 minutes time spent [id number], review of medical record including labs/cultures/imaging, orders and documentation. Brandon Pérez MD TID: [id number] RECEIPT: [id number] GABY/LEELEE TOPETE
[2024-10-03] MEDS: hydrALAZINE 20mg/ml inj. IV PRN (20:38)
[2024-10-03] MEDS: LORazepam 0.5 MG tablet PO PRN (20:39)
[2024-10-03] MEDS: cyclobenzaprine 10mg tablet PO PRN (22:51)
[2024-10-04 04:20] LABS: ALANINE AMINOTRANSFERASE 134 U/L (12-78); ALBUMIN 3.5 G/DL (3.4-5.0); ALBUMIN/GLOBULIN RATIO 1.1 (1.1-1.5); ALKALINE PHOSPHATASE 289 IU/L (46-116); ANION GAP 9 (8-16); ASPARTATE AMINO TRANSFERASE 49 U/L (10-37); BILIRUBIN,TOTAL 0.8 MG/DL (0.1-1.0); BLOOD UREA NITROGEN 11 MG/DL (7-18); BUN/CREATININE RATIO 12.5 (10.0-20.0); CALCIUM 8.9 MG/DL (8.5-10.1); CHLORIDE 105 MMOL/L (99-107); CREATININE 0.88 MG/DL (0.40-0.90); GLUCOSE 111 MG/DL (70-104); POTASSIUM 3.9 MMOL/L (3.5-5.1); SODIUM 139 MMOL/L (135-145); TOTAL CARBON DIOXIDE 25.5 MMOL/L (24-32); TOTAL PROTEIN 6.7 G/DL (6.4-8.2); eCRCL 77 ML/MIN; eGFR 73 ML/MIN
[2024-10-04 04:34] LABS: BASOPHILS % (AUTO) 0.8 % (0-1); EOSINOPHILS # (AUTO) 0.1 X10'3 (0-0.9); EOSINOPHILS % (AUTO) 5.3 % (0-6); HEMATOCRIT 33.8 % (35.0-45.0); HEMOGLOBIN 12.1 g/dl (12.0-16.0); LYMPHOCYTES # (AUTO) 0.6 X10'3 (1.1-4.8); LYMPHOCYTES % (AUTO) 55.3 % (21-51); MEAN CORPUSCULAR HEMOGLOBIN 31.8 PG (27.0-31.0); MEAN CORPUSCULAR HGB CONC 35.8 g/dL (33.0-36.5); MEAN CORPUSCULAR VOLUME 88.7 FL (78-98); MONOCYTES # (AUTO) 0.3 X10'3 (0-0.9); MONOCYTES % (AUTO) 26.4 % (2-12); NEUTROPHILS # (AUTO) 0.1 X10'3 (1.8-7.7); NEUTROPHILS % (AUTO) 12.2 % (42-75); PLATELET COUNT 106 X10'3 (140-440); RED BLOOD COUNT 3.81 X10'6 (4.20-5.60); RED CELL DISTRIBUTION WIDTH 13.5 % (11.5-14.5)
[2024-10-04 05:46] LABS: TOTAL CELLS COUNTED 100
[2024-10-04 05:47] LABS: PLATELET ESTIMATE DECREASED
[2024-10-04 06:00] VITALS: BP 138/95; PULSE 97; RESP 16; TEMP 97.9; O2SAT 99
--- NOTE | 2024-10-04 09:30 | PROGRESS NOTE ---
Progress Note Dictate Providers to CC ~ Subjective Subjective: She still reports significant left mouth/cheek pain. She also states that her right ear is tender when she has to put in her listening device. She is not sexually active. Objective Objective: GENERAL: Pleasant middle-aged female lying in bed, looking stable. HEENT: She has an area of ulceration at the mucosa just lateral to the left mandibular area. No other oral lesions were seen. LUNGS: Clear to auscultation bilaterally. HEART: Regular rate and rhythm. ABDOMEN: Soft without significant distention. EXTREMITIES: No edema. Lab Results: 10/04/24 0333 10/04/24 033 Problem\Assessment\Plan Additional Plan 1. Painful mouth ulceration at the left mandibular area of unclear etiology. It is unclear if this is related to an injury at that site versus infection (more likely viral) versus immune-mediated. 2. Neutropenia and thrombocytopenia that appears to be new and definitely concerning given her history. 3. Abnormal liver function tests that have been chronically problematic. She is followed by Dr. Barclay. 4. Weight loss and constipation, awaiting lower endoscopy. 5. GATA2 mutation and myelodysplasia, status post allogeneic stem cell transplantation in 2013. OK to continue Zosyn and acyclovir for now F/U viral testing Needs hematology evaluation - I did tell her mom to reach out to [facility] today (may need referral sent from [facility]) COURTNEY GOLDMAN MD Oct 04, 2024 09:30
[2024-10-04 10:00] VITALS: BP 148/108; PULSE 102; RESP 21; TEMP 98.4; O2SAT 98
--- NOTE | 2024-10-04 11:08 | PROGRESS NOTE- Residence ---
Progress Note - Resident Providers to CC Resident Creating Document: HIMA ALVARADO RES ~ Antibiotic Timeout Antibiotic Ordered?: Yes Subjective Patient seen and examined at the bedside, Denied chest pain shortness of breath coughing or any other symptoms, complain of generalized weakness Objective Vital Signs Date Time Temp Pulse Resp B/P (MAP) Pulse Ox O2 Delivery O2 Flow Rate FiO2 10/04/24 10:00 98.4 102 21 148/108 (121) 98 Room Air 10/03/24 20:00 0.0 Result Diagram: 10/04/24 0333 10/04/24 0333 General: Awake and Alert, no acute distress. HEENT: Conjunctiva pink, Sclera clear, Mucus Membranes moist. Left mandibular tenderness, no erythema Aphthous ulcer on the left side gumline Neck: Supple without masses and tenderness. Resp: Lungs clear to auscultation bilaterally. Heart: Regular Rate and rhythm, normal S1 and S2 without murmur, Abdomen: Multiple abdominal scar from previous surgeries, Soft and non tender no organomegaly Extremities: No cyanosis,clubbing or edema. Skin: Warm and Dry, no petechia purpura Neurological: Speech is clear, alert, and oriented x 4, no gross neurological deficits Coagulation Studies Laboratory Tests Test 10/02/24 13:44 Prothrombin Time 10.3 SECONDS (9.0-12.0) INR International Normalized Ratio 1.0 INR Activated Partial Thromboplast Time 34 SECONDS (22-32) H Coagulation Comments Plan Plan Patient is a 34-year-old female with a history of MDS, leukemia, status post chemotherapy and bone marrow transplant in 2013, presenting with left jaw pain and an enlarging oral ulcer. Admitted with following workup/and treatment Leukopenia, Neutropenia, thrombocytopenia Painful mouth ulcer GATA2 mutation and myelodysplasia, status post allogeneic stem cell transplantation in 2014. Left jaw pain, Cellulitis, possible mastoiditis Flu negative, RPR, CMV, EBV, HIV pending ESR is elevated Partial left mastoidectomy with left cochlear implant presents around 5 years ago She is severely immunocompromised, with a WBC count of 1.4 on admission, placing her at high risk for infection. Given her neutropenic status, the patient requires prompt antibiotic therapy to prevent further complications. CT scan finding are suggestive of mild cellulitis over the left masseter muscle and possible mastoiditis. MRI ordered however due to cochlear implant, it is unlikely to get a good imaging as MRI team mentioned Dr. Pérez infectious disease specialist consulted, antibiotic changed to Zosyn only, day 2 Unclear etiology for mouth ulcer it is unclear if this is related to an injury at the site versus infection most likely viral versus immune mediated, patient need senior vice president and chief information officer oncologist and ENT 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 Pérez talked to her mother to reach out to [facility] We will follow the blood culture and other infectious panel Elevated transaminases Elevated alkaline phosphatase Had multiple surgery bowel surgery Suspected Crohn disease (multiple flare-ups in the past, pending colonoscopy, she is following [facility]) As patient mother reports patient had sphincter of Oddi dysfunction and underwent a procedure likely Sphinteotomy couple of months ago, on 03/01 underwent liver biopsy as patient report there was no any cirrhosis, following Dr Barclay Abdominal ultrasound : Hepatic steatosis. History of Seizure Seizure-free for years Lamotrigine also can cause some leukopenia however patient was on lamotrigine for years with no issue We will continue home medication lamotrigine 50 daily Continue gabapentin 900 daily Code Status: Full DVT prophylaxis: SCDs Analgesia/sedation: [place], Tylenol Line/tube: Peripheral GI prophylaxis: None Nutrition: Neutropenic diet PT: Yes Prognosis: Guarded Disposition: Continue monitoring patient in ortho floor, viral panel pending Hima Alvarado MD Internal Medicine Resident Date of Service: Oct 04, 2024 Billing Provider: BRIAN MCINTYRE MD, ELAHE, RES Oct 04, 2024 11:07
[2024-10-04 18:00] VITALS: BP 149/109; PULSE 112; RESP 18; TEMP 99; O2SAT 98
[2024-10-04 19:49] VITALS: BP 149/109; PULSE 112; RESP 18; TEMP 99; O2SAT 98
[2024-10-04 20:00] VITALS: RESP 16; O2SAT 100
[2024-10-04 22:00] VITALS: BP 160/117; PULSE 102; RESP 16; TEMP 99.4; O2SAT 100
[2024-10-05 04:46] LABS: BASOPHILS % (AUTO) 0.8 % (0-1); EOSINOPHILS # (AUTO) 0.1 X10'3 (0-0.9); EOSINOPHILS % (AUTO) 4.5 % (0-6); HEMOGLOBIN 13.4 g/dl (12.0-16.0); LYMPHOCYTES # (AUTO) 0.8 X10'3 (1.1-4.8); LYMPHOCYTES % (AUTO) 60.2 % (21-51); MEAN CORPUSCULAR HEMOGLOBIN 31.4 PG (27.0-31.0); MEAN CORPUSCULAR HGB CONC 35.1 g/dL (33.0-36.5); MEAN CORPUSCULAR VOLUME 89.5 FL (78-98); MEAN PLATELET VOLUME 7.1 FL (7.4-10.4); MONOCYTES # (AUTO) 0.3 X10'3 (0-0.9); MONOCYTES % (AUTO) 21.8 % (2-12); NEUTROPHILS # (AUTO) 0.2 X10'3 (1.8-7.7); NEUTROPHILS % (AUTO) 12.7 % (42-75); PLATELET COUNT 109 X10'3 (140-440); RED BLOOD COUNT 4.25 X10'6 (4.20-5.60); RED CELL DISTRIBUTION WIDTH 13.8 % (11.5-14.5); WHITE BLOOD COUNT 1.4 X10'3 (4.5-11.0)
[2024-10-05 05:11] LABS: ALANINE AMINOTRANSFERASE 152 U/L (12-78); ALBUMIN 3.8 G/DL (3.4-5.0); ALBUMIN/GLOBULIN RATIO 1.2 (1.1-1.5); ALKALINE PHOSPHATASE 287 IU/L (46-116); ANION GAP 11 (8-16); ASPARTATE AMINO TRANSFERASE 57 U/L (10-37); BLOOD UREA NITROGEN 12 MG/DL (7-18); BUN/CREATININE RATIO 14.6 (10.0-20.0); CALCIUM 9.2 MG/DL (8.5-10.1); CHLORIDE 104 MMOL/L (99-107); CREATININE 0.82 MG/DL (0.40-0.90); GLUCOSE 104 MG/DL (70-104); POTASSIUM 3.5 MMOL/L (3.5-5.1); SODIUM 140 MMOL/L (135-145); TOTAL CARBON DIOXIDE 25.3 MMOL/L (24-32); TOTAL PROTEIN 7.1 G/DL (6.4-8.2); eCRCL 83 ML/MIN; eGFR 79 ML/MIN
[2024-10-05 06:00] VITALS: BP 131/104; PULSE 96; RESP 18; TEMP 98.4; O2SAT 99
[2024-10-05 07:12] LABS: EBV AB VCA, IGG >600.0 U/mL (0.0-17.9); EBV AB VCA, IGM <36.0 U/mL (0.0-35.9); EBV NUCLEAR ANTIGEN AB, IGG <18.0 U/mL (0.0-17.9)
[2024-10-05 07:24] LABS: TOTAL CELLS COUNTED 100
[2024-10-05 07:25] LABS: PLATELET ESTIMATE DECREASED
[2024-10-05 08:59] VITALS: RESP 18; O2SAT 98
[2024-10-05 10:00] VITALS: BP 141/109; PULSE 99; RESP 19; TEMP 98.5; O2SAT 98
--- NOTE | 2024-10-05 17:27 | PROGRESS NOTE- Residence ---
Progress Note - Resident Providers to CC Resident Creating Document: HIMA ALVARADO RES ~ Antibiotic Timeout Antibiotic Ordered?: Yes Subjective Patient seen and examined at the bedside, Denied chest pain shortness of breath coughing or any other symptoms, reported some erythema under the breast line bilaterally. She reported mild burning sensation.. Objective Vital Signs Date Time Temp Pulse Resp B/P (MAP) Pulse Ox O2 Delivery O2 Flow Rate FiO2 10/05/24 14:28 20 10/05/24 10:00 98.5 99 141/109 (120) 98 Room Air 10/04/24 08:00 0.0 Result Diagram: 10/05/24 0403 10/05/24 0403 General: Awake and Alert, no acute distress. HEENT: Conjunctiva pink, Sclera clear, Mucus Membranes moist. Left mandibular tenderness, no erythema Mouth ulcer on the left side gumline, size is almost as same as yesterday Neck: Supple without masses and tenderness. Resp: Lungs clear to auscultation bilaterally. Heart: Regular Rate and rhythm, normal S1 and S2 without murmur, Abdomen: Multiple abdominal scar from previous surgeries, Soft and non tender Extremities: No cyanosis,clubbing or edema. Skin: Mild erythema under breast line bilaterally, no vesicle, no postural, no tenderness Also there is mild erythema on the area above inguinal area, right side Neurological: Speech is clear, alert, and oriented x 4, no gross neurological deficits Coagulation Studies Laboratory Tests Test 10/02/24 13:44 Prothrombin Time 10.3 SECONDS (9.0-12.0) INR International Normalized Ratio 1.0 INR Activated Partial Thromboplast Time 34 SECONDS (22-32) H Coagulation Comments Plan Plan Patient is a 34-year-old female with a history of MDS, leukemia, status post chemotherapy and bone marrow transplant in 2013, presenting with left jaw pain and an enlarging oral ulcer. Admitted with following workup/and treatment Leukopenia, Neutropenia, thrombocytopenia Painful mouth ulcer GATA2 mutation and myelodysplasia, status post allogeneic stem cell transplantation in 2013. Left jaw pain, Cellulitis, possible mastoiditis Flu negative, RPR, CMV, EBV, HIV pending ESR is elevated Partial left mastoidectomy with left cochlear implant presents around 5 years ago She is severely immunocompromised, with a WBC count of 1.4 on admission, placing her at high risk for infection. Given her neutropenic status, the patient requires prompt antibiotic therapy to prevent further complications. CT scan finding are suggestive of mild cellulitis over the left masseter muscle and possible mastoiditis. MRI ordered however due to cochlear implant, it is unlikely to get a good imaging as MRI team mentioned Dr. 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 Pérez talked to her mother for any possibility to [facility] for continuity of care and follow up Blood culture negative after four days, MRSA negative, Her viral panel: HIV one and two antibody nonreactive, RPR nonreactive EBV capsid antigen IgG antibody greater than 600, EBV on antigen IgM antibody low which showed past infection Other viral panel is pending Thrombocytopenia leukopenia : Gradually trending up Elevated transaminases: Stable Elevated alkaline phosphatase Had multiple surgery bowel surgery Suspected Crohn disease (multiple flare-ups in the past, pending colonoscopy, she is following [facility]) As patient mother reports patient had sphincter of Oddi dysfunction and underwent a procedure likely Sphinteotomy couple of months ago, on 03/01 underwent liver biopsy as patient report there was no any cirrhosis, following Dr Barclay Abdominal ultrasound : Hepatic steatosis. Patient is asymptomatic, Continue monitoring History of Seizure Seizure-free for years Lamotrigine also can cause some leukopenia however patient was on lamotrigine for years with no issue We will continue home medication lamotrigine 50 daily Continue gabapentin 900 daily Mild erythema/rash bilaterally under breast line Possible mild drug reaction, no any sign of infection Patient had history of drug reaction including rash, Benadryl 25 changed to 50 mg q.6 PRN for itching Code Status: Full DVT prophylaxis: SCDs Analgesia/sedation: [place], Tylenol Line/tube: Peripheral GI prophylaxis: None Nutrition: Neutropenic diet PT: Yes Prognosis: Guarded Disposition: Continue monitoring patient in ortho floor, viral panel pending Hima Alvarado MD Internal Medicine Resident Date of Service: Oct 05, 2024 Billing Provider: BRIAN MCINTYRE MD, [place], RES Oct 05, 2024 17:27
[2024-10-05 18:00] VITALS: BP 139/100; PULSE 103; RESP 19; TEMP 98.1; O2SAT 99
[2024-10-05] MEDS: diphenhydrAMINE 25mg capsule PO PRN (19:14)
[2024-10-05 20:00] VITALS: RESP 19; O2SAT 99
[2024-10-05] MEDS: proMETHazine 25mg rectal suppository RC ONE (21:30)
[2024-10-05 22:00] VITALS: BP 146/107; PULSE 96; RESP 20; TEMP 98.6; O2SAT 98
[2024-10-06] VITALS (7 sets, daily range): BP systolic 124–151; BP diastolic 96–112; PULSE 97–104; RESP 13–16; TEMP 97.2–99.3; O2SAT 99–100
[2024-10-06 06:29] LABS: BASOPHILS % (AUTO) 0.8 % (0-1); EOSINOPHILS # (AUTO) 0.1 X10'3 (0-0.9); EOSINOPHILS % (AUTO) 5.7 % (0-6); HEMATOCRIT 36.5 % (35.0-45.0); LYMPHOCYTES # (AUTO) 0.8 X10'3 (1.1-4.8); LYMPHOCYTES % (AUTO) 64.2 % (21-51); MEAN CORPUSCULAR HEMOGLOBIN 31.7 PG (27.0-31.0); MEAN CORPUSCULAR HGB CONC 35.6 g/dL (33.0-36.5); MEAN PLATELET VOLUME 7.1 FL (7.4-10.4); MONOCYTES # (AUTO) 0.2 X10'3 (0-0.9); MONOCYTES % (AUTO) 18.1 % (2-12); NEUTROPHILS # (AUTO) 0.1 X10'3 (1.8-7.7); NEUTROPHILS % (AUTO) 11.2 % (42-75); PLATELET COUNT 103 X10'3 (140-440); RED CELL DISTRIBUTION WIDTH 13.5 % (11.5-14.5); WHITE BLOOD COUNT 1.2 X10'3 (4.5-11.0)
[2024-10-06 06:48] LABS: ALANINE AMINOTRANSFERASE 221 U/L (12-78); ALBUMIN 3.6 G/DL (3.4-5.0); ALBUMIN/GLOBULIN RATIO 1.1 (1.1-1.5); ALKALINE PHOSPHATASE 270 IU/L (46-116); ANION GAP 9 (8-16); ASPARTATE AMINO TRANSFERASE 100 U/L (10-37); BILIRUBIN,TOTAL 0.8 MG/DL (0.1-1.0); BLOOD UREA NITROGEN 12 MG/DL (7-18); BUN/CREATININE RATIO 16.2 (10.0-20.0); CALCIUM 8.8 MG/DL (8.5-10.1); CHLORIDE 106 MMOL/L (99-107); CREATININE 0.74 MG/DL (0.40-0.90); GLUCOSE 104 MG/DL (70-104); SODIUM 140 MMOL/L (135-145); TOTAL CARBON DIOXIDE 25.1 MMOL/L (24-32); TOTAL PROTEIN 6.8 G/DL (6.4-8.2); eCRCL 92 ML/MIN; eGFR 89 ML/MIN
[2024-10-06 07:31] LABS: TOTAL CELLS COUNTED 100
[2024-10-06 07:33] LABS: PLATELET ESTIMATE DECREASED
[2024-10-06] MEDS: diphenhydrAMINE 50 mg/ml inj IV PRN (10:40)
--- NOTE | 2024-10-06 11:23 | PROGRESS NOTE ---
Progress Note Dictate Providers to CC ~ Subjective Subjective: She is now reporting a red rash that has shown up below each breast and near the groin areas. She reports a burning quality. No fever. She states that her mom did get a referral sent to [facility], but they have not heard from [facility] yet about an actual appointment. Her mouth is actually feeling better. Objective Objective: GENERAL: Pleasant middle-aged female lying in bed, looking stable. HEENT: She has an area of ulceration at the mucosa just lateral to the left mandibular area. No other oral lesions were seen. LUNGS: Clear to auscultation bilaterally. HEART: Regular rate and rhythm. ABDOMEN: Soft without significant distention. EXTREMITIES: No edema. Skin with erythematous rash beneath each breast consistent with candidiasis Similar rash also present near groin areas Lab Results: 10/06/2451910/06/24519 Problem\Assessment\Plan Additional Plan 1. Painful mouth ulceration at the left mandibular area of unclear etiology. It is unclear if this is related to an injury at that site versus infection (more likely viral) versus immune-mediated. 2. Neutropenia and thrombocytopenia that appears to be new and definitely concerning given her history. 3. Abnormal liver function tests that have been chronically problematic. She is followed by Dr. Barclay. 4. Weight loss and constipation, awaiting lower endoscopy. 5. GATA2 mutation and myelodysplasia, status post allogeneic stem cell transplantation in 2013. OK to continue Zosyn and acyclovir for now F/U viral testing Needs hematology evaluation - waiting to hear from [facility] Start fluconazole and nystatin cream If she goes home soon, would provide her with 10 days of therapy using Valacyclovir 500 mg twice daily Levofloxacin 500 mg daily Fluconazole 200 mg daily These meds will carry her until she can follow up with me in the outpatient setting or reestablish care with COURTNEY Dunn MD October 06, 2024 11:23
[2024-10-06] MEDS: fluconazole 100mg tablet PO SCH (12:30)
[2024-10-06] MEDS: NYSTATIN CREAM - 30GM TUBE TP SCH (12:30)
[2024-10-06] MEDS: acetaminophen 325mg tablet PO PRN (16:39)
[2024-10-06 17:10] LABS: CMV QUANT DNA PCR Negative (Negative)
--- NOTE | 2024-10-06 18:14 | PROGRESS NOTE- Residence ---
Progress Note - Resident Providers to CC Resident Creating Document: HIMA ALVARADO RES ~ Antibiotic Timeout Antibiotic Ordered?: Yes Subjective Patient seen and examined at the bedside, Denied chest pain shortness of breath coughing or any other symptoms, reported the erythema under the breast line bilaterally and back is expanding. She reported mild burning sensation.. Objective Vital Signs Date Time Temp Pulse Resp B/P (MAP) Pulse Ox O2 Delivery O2 Flow Rate FiO2 10/06/24 17:00 99.3 10/06/24 16:40 18 10/06/24 14:46 Room Air 10/06/24 10:00 97 136/101 (113) 99 10/06/24 08:00 0.0 Result Diagram: 10/06/2451910/06/24 05 General: Awake and Alert, no acute distress. HEENT: Conjunctiva pink, Sclera clear, Mucus Membranes moist. Left mandibular tenderness, no erythema Mouth ulcer on the left side gumline, size is almost as same as yesterday Neck: Supple without masses and tenderness. Resp: Lungs clear to auscultation bilaterally. Heart: Regular Rate and rhythm, normal S1 and S2 without murmur, Abdomen: Multiple abdominal scar from previous surgeries, Soft and non tender Extremities: No cyanosis,clubbing or edema. Skin: erythema under breast line bilaterally, no vesicle, no postural, no tenderness Also there is mild erythema on the area above inguinal area, right side, and lower back Neurological: Speech is clear, alert, and oriented x 4, no gross neurological deficits Coagulation Studies Laboratory Tests Test 10/02/24 13:44 Prothrombin Time 10.3 SECONDS (9.0-12.0) INR International Normalized Ratio 1.0 INR Activated Partial Thromboplast Time 34 SECONDS (22-32) H Coagulation Comments Plan Plan Patient is a 34-year-old female with a history of MDS, leukemia, status post chemotherapy and bone marrow transplant in 2013, presenting with left jaw pain and an enlarging oral ulcer. Admitted with following workup/and treatment Leukopenia, Neutropenia, thrombocytopenia Painful mouth ulcer GATA2 mutation and myelodysplasia, status post allogeneic stem cell transplantation in 2013. Left jaw pain, Cellulitis, possible mastoiditis Flu negative, RPR, CMV, EBV, HIV pending ESR is elevated Partial left mastoidectomy with left cochlear implant presents around 5 years ago She is severely immunocompromised, with a WBC count of 1.4 on admission, placing her at high risk for infection. Given her neutropenic status, the patient requires prompt antibiotic therapy to prevent further complications. CT scan finding are suggestive of mild cellulitis over the left masseter muscle and possible mastoiditis. MRI ordered however due to cochlear implant, it is unlikely to get a good imaging as MRI team mentioned Dr. 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 Pérez talked to her mother for any possibility to [facility] appointment for continuity of care and follow up, waiting to hear from [facility] Elevated transaminases: Stable Elevated alkaline phosphatase Had multiple surgery bowel surgery Weight loss and constipation,.Suspected Crohn disease (multiple flare-ups in the past, pending colonoscopy, she is following [facility]) As patient mother reports patient had sphincter of Oddi dysfunction and underwent a procedure likely Sphinteotomy couple of months ago, on 03/01 underwent liver biopsy as patient report there was no any cirrhosis, following Dr Barclay Abdominal ultrasound : Hepatic steatosis. Patient is asymptomatic, Continue monitoring History of Seizure Seizure-free for years Lamotrigine also can cause some leukopenia however patient was on lamotrigine for years with no issue We will continue home medication lamotrigine 50 daily Continue gabapentin 900 daily Mild erythema/rash bilaterally under breast line, and inguinal area Possible candidiasis and mild drug reaction Patient had history of drug reaction including rash, Benadryl 25 changed to 50 IV mg q.6 PRN for itching Fluconazole p.o. and nystatin cream started As Dr. Pérez recommendation: If she goes home soon, would provide her with 10 days of therapy using Valacyclovir 500 mg twice daily, Levofloxacin 500 mg daily Fluconazole 200 mg daily These meds will carry her until she can follow up with me in the outpatient setting or reestablish care with [facility] Code Status: Full DVT prophylaxis: SCDs Analgesia/sedation: [place], Tylenol Line/tube: Peripheral GI prophylaxis: None Nutrition: Neutropenic diet PT: Yes Prognosis: Guarded Disposition: Continue monitoring patient in ortho floor, viral panel pending Hima Alvarado MD Internal Medicine Resident Date of Service: October 06, 2024 Billing Provider: FREDDIE ANAYA MD Common Visit Codes: [id number] INP/OBS CARE(HIGH) HIMA ALVARADO, LM October 06, 2024 18:14 FREDDIE ANAYA MD October 07, 2024 18:59
[2024-10-07 05:01] LABS: BASOPHILS % (AUTO) 0.9 % (0-1); EOSINOPHILS # (AUTO) 0.1 X10'3 (0-0.9); EOSINOPHILS % (AUTO) 4.6 % (0-6); HEMOGLOBIN 12.3 g/dl (12.0-16.0); LYMPHOCYTES # (AUTO) 0.8 X10'3 (1.1-4.8); LYMPHOCYTES % (AUTO) 61.2 % (21-51); MEAN CORPUSCULAR HEMOGLOBIN 31.4 PG (27.0-31.0); MEAN CORPUSCULAR HGB CONC 35.1 g/dL (33.0-36.5); MEAN CORPUSCULAR VOLUME 89.3 FL (78-98); MEAN PLATELET VOLUME 7.1 FL (7.4-10.4); MONOCYTES # (AUTO) 0.3 X10'3 (0-0.9); MONOCYTES % (AUTO) 20.9 % (2-12); NEUTROPHILS # (AUTO) 0.2 X10'3 (1.8-7.7); NEUTROPHILS % (AUTO) 12.4 % (42-75); PLATELET COUNT 100 X10'3 (140-440); RED BLOOD COUNT 3.92 X10'6 (4.20-5.60); RED CELL DISTRIBUTION WIDTH 13.5 % (11.5-14.5); WHITE BLOOD COUNT 1.3 X10'3 (4.5-11.0)
[2024-10-07 05:19] LABS: ALANINE AMINOTRANSFERASE 226 U/L (12-78); ALBUMIN 3.5 G/DL (3.4-5.0); ALBUMIN/GLOBULIN RATIO 1.2 (1.1-1.5); ALKALINE PHOSPHATASE 245 IU/L (46-116); ANION GAP 8 (8-16); ASPARTATE AMINO TRANSFERASE 72 U/L (10-37); BILIRUBIN,TOTAL 0.7 MG/DL (0.1-1.0); BLOOD UREA NITROGEN 13 MG/DL (7-18); BUN/CREATININE RATIO 14.3 (10.0-20.0); CHLORIDE 106 MMOL/L (99-107); CREATININE 0.91 MG/DL (0.40-0.90); GLUCOSE 104 MG/DL (70-104); POTASSIUM 4.1 MMOL/L (3.5-5.1); SODIUM 141 MMOL/L (135-145); TOTAL CARBON DIOXIDE 27.5 MMOL/L (24-32); TOTAL PROTEIN 6.5 G/DL (6.4-8.2); eCRCL 75 ML/MIN; eGFR 70 ML/MIN
[2024-10-07 06:00] VITALS: BP 129/86; PULSE 90; RESP 16; TEMP 97.8; O2SAT 100
[2024-10-07 06:36] LABS: PLATELET ESTIMATE DECREASED; TOTAL CELLS COUNTED 100
[2024-10-07] MEDS ORDERED: PANT40TA54 PO (08:40)
[2024-10-07 10:00] VITALS: BP 135/94; PULSE 90; RESP 15; TEMP 97.4; O2SAT 97
[2024-10-07] MEDS: lactobacillus rhamnosus 10,000 MMU CELLS/CAPSULE PO ONE (16:54)
[2024-10-07 18:30] VITALS: BP 166/107; PULSE 110; RESP 14; TEMP 98.6; O2SAT 96
--- NOTE | 2024-10-07 20:00 | PROGRESS NOTE- Residence ---
Progress Note - Resident Providers to CC Resident Creating Document: HIMA ALVARADO RES ~ Antibiotic Timeout Antibiotic Ordered?: Yes Subjective Patient seen and examined at the bedside, Denied chest pain shortness of breath coughing or any other symptoms, reported no changes in the erythema under the breast line bilaterally and back. Objective Vital Signs Date Time Temp Pulse Resp B/P (MAP) Pulse Ox O2 Delivery O2 Flow Rate FiO2 10/07/24 18:58 16 10/07/24 18:30 98.6 110 166/107 (126) 96 Room Air 10/07/24 08:00 0.0 Result Diagram: 10/07/24 0430 10/07/24 0430 General: Awake and Alert, no acute distress. HEENT: Conjunctiva pink, Sclera clear, Mucus Membranes moist. Left mandibular tenderness, no erythema Mouth ulcer on the left side gumline, size is almost as same as yesterday Neck: Supple without masses and tenderness. Resp: Lungs clear to auscultation bilaterally. Heart: Regular Rate and rhythm, normal S1 and S2 without murmur, Abdomen: Multiple abdominal scar from previous surgeries, Soft and non tender Extremities: No cyanosis,clubbing or edema. Skin: erythema under breast line bilaterally, no vesicle, no postural, no tenderness Also there is mild erythema on the area above inguinal area, right side, and lower back Neurological: Speech is clear, alert, and oriented x 4, no gross neurological deficits Coagulation Studies Laboratory Tests Test 10/02/24 13:44 Prothrombin Time 10.3 SECONDS (9.0-12.0) INR International Normalized Ratio 1.0 INR Activated Partial Thromboplast Time 34 SECONDS (22-32) H Coagulation Comments Plan Plan Patient is a 34-year-old female with a history of MDS, leukemia, status post chemotherapy and bone marrow transplant in 2013, presenting with left jaw pain and an enlarging oral ulcer. Admitted with following workup/and treatment Leukopenia, Neutropenia, thrombocytopenia Painful mouth ulcer GATA2 mutation and myelodysplasia, status post allogeneic stem cell transplantation in 2013. Left jaw pain, Cellulitis, possible mastoiditis Flu negative, RPR, CMV, EBV, HIV pending ESR is elevated Partial left mastoidectomy with left cochlear implant presents around 5 years ago She is severely immunocompromised, with a WBC count of 1.4 on admission, placing her at high risk for infection. Given her neutropenic status, the patient requires prompt antibiotic therapy to prevent further complications. CT scan finding are suggestive of mild cellulitis over the left masseter muscle and possible mastoiditis. MRI ordered however due to cochlear implant, it is unlikely to get a good imaging as MRI team mentioned Dr. 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 Pérez talked to her mother for any possibility to [facility] appointment for continuity of care and follow up, waiting to hear from [facility] Elevated transaminases: Stable Elevated alkaline phosphatase Had multiple surgery bowel surgery Weight loss and constipation,.Suspected Crohn disease (multiple flare-ups in the past, pending colonoscopy, she is following [facility]) As patient mother reports patient had sphincter of Oddi dysfunction and underwent a procedure likely Sphinteotomy couple of months ago, on 03/01 underwent liver biopsy as patient report there was no any cirrhosis, following Dr Barclay Abdominal ultrasound : Hepatic steatosis. Patient is asymptomatic, Continue monitoring History of Seizure Seizure-free for years Lamotrigine also can cause some leukopenia however patient was on lamotrigine for years with no issue We will continue home medication lamotrigine 50 daily Continue gabapentin 900 daily Mild erythema/rash bilaterally under breast line, and inguinal area Possible candidiasis and mild drug reaction Patient had history of drug reaction including rash, Benadryl 25 changed to 50 IV mg q.6 PRN for itching Fluconazole p.o. and nystatin cream started As Dr. Pérez recommendation: If she goes home soon, would provide her with 10 days of therapy using Valacyclovir 500 mg twice daily, Levofloxacin 500 mg daily Fluconazole 200 mg daily These meds will carry her until she can follow up with me in the outpatient setting or reestablish care with [facility] Code Status: Full DVT prophylaxis: SCDs Analgesia/sedation: [place], Tylenol Line/tube: Peripheral GI prophylaxis: None Nutrition: Neutropenic diet PT: Yes Prognosis: Guarded Disposition: Continue monitoring patient in ortho floor, viral panel pending Hima Alvarado MD Internal Medicine Resident Date of Service: October 07, 2024 Billing Provider: FREDDIE ANAYA MD Common Visit Codes: [id number] INP/OBS CARE(HIGH) HIMA ALVARADO, LM October 07, 2024 20:00 FREDDIE ANAYA MD October 07, 2024 20:18
[2024-10-07] MEDS: pantoprazole 40mg Tablet.DR PO SCH (20:06)
[2024-10-07] MEDS: gabapentin 300mg capsule PO SCH (20:06)
[2024-10-07] MEDS ORDERED: ESTR1TAB28 PO (21:37)
[2024-10-07 22:00] VITALS: BP 131/102; PULSE 98; RESP 18; TEMP 97.3; O2SAT 100
[2024-10-08 06:00] VITALS: BP 130/93; PULSE 87; RESP 16; TEMP 98.9; O2SAT 100
[2024-10-08] MEDS ORDERED: LACT1CAP26 PO ×2 (07:26→15:17)
[2024-10-08] MEDS ORDERED: VALA500T41 PO ×2 (07:26→15:14)
[2024-10-08] MEDS ORDERED: FLUC100T40 PO ×2 (07:26→15:14)
[2024-10-08] MEDS ORDERED: LEVO-65 PO ×2 (07:26→15:14)
[2024-10-08] MEDS: lactobacillus rhamnosus 10,000 MMU CELLS/CAPSULE PO SCH (09:47)
[2024-10-08 10:00] VITALS: BP 144/102; PULSE 93; RESP 16; TEMP 98.2; O2SAT 97
[2024-10-08 10:05] VITALS: RESP 16
[2024-10-08] MEDS ORDERED: gabapentin 300mg capsule PO SCH (10:24)
[2024-10-08 15:33] VITALS: RESP 20
--- NOTE | 2024-10-08 17:39 | DISCHARGE SUMMARY-Residence ---
Discharge Summary Providers to CC Resident Creating Document: UNA GALDAMEZ, RES ~ Discharge Summary Admission Diagnosis: Left jaw pain and swelling Hospital Course DATE OF ADMISSION: 10/02/2024 DATE OF DISCHARGE: 10/08/2024 Discharge Diagnosis\Comment: Leukopenia, Neutropenia, thrombocytopenia Painful mouth ulcer GATA2 mutation and myelodysplasia, status post allogeneic stem cell transplantation in 2013. Left jaw pain, Cellulitis, possible mastoiditis Elevated transaminases: Stable History of multiple surgery bowel surgery Suspected Crohn disease History of Seizure Mild erythema/rash bilaterally under breast line, and inguinal area Operations\Procedures: None Consultants: Infectious diseases Complications: None Condition on DC: Stable New Medications: Fluconazole (Fluconazole) 100 Mg Tablet 1 TAB PO DAILY for 10 Days, #10 TAB Lactobacillus Rhamnosus (Culturelle) 10 Billion Cell Capsule 1 CAP PO DAILY for 30 Days, #30 CAP 0 Refills Levofloxacin (Levofloxacin) 500 Mg Tablet 500 MG PO DAILY for 10 Days, #10 TAB Valacyclovir HCl (Valacyclovir) 500 Mg Tablet 1 TAB PO BID for 10 Days, #20 TAB 0 Refills Discontinued Medications: Amox Tr/Potassium Clavulanate 875/125 MG (Augmentin 875/125 MG) 875 Mg-125 Mg Tablet 1 TAB PO Q12H for 14 Days, #28 TAB Discharge Summary: HPI as per admitting physician: Patient is a 34-year-old female with a history of myelodysplastic syndrome, TERESA leukemia, status post bone marrow transplantation in 2013,and Partial left mastoidectomy with left cochlear implant presents to ER with persistent left jaw pain. She reports the pain began around Easter, initially associated with significant swelling and tenderness of her left jaw. Although the swelling has improved, the pain persi sts along the left gumline, where she notes an enlarging ulcer, large enough that she can insert her tongue into it. She endorses mild odynophagia, however, she denies any fever, chills, or shortness of breath. CT scan of the head demonstrated mild fat stranding over the anterior masseter muscle, suggestive of earlly or mild cellulitis, with no evidence of abscess formation. WBC is 1.4 consistent with significant leukopenia. The ER physician consulted in ENT specialists in [place], who reviewed the imaging and recommended initiation of antibiotics therapy without the need for transfer. I have discussed advance care planning with the patient. The patient has decided on a full code status. I also spoke to her mom, who is her caregiver, reporting that patient has suspected Crohn disease; colonoscopy is not convenient in town because of multiple abdominal surgeries and residual scars. The patient remains clinically stable but is at high risk for infectious complication given her immunocompromised status. Breasts suppressed Bactrim antibiotics have been started, and she will be closely monitor for any signs of clinical deterioration. Hospital course: The patient, a 34 -year-old female with a history of GATA2 mutation and myelodysplasia status post allogeneic stem cell transplantation in 2013, presented with left jaw pain, mouth ulcers, and signs of systemic infection, including leukopenia (WBC 1.4) and neutropenia, placing her at high risk for severe infections. She reported a history of partial left mastoidectomy with cochlear implantation five [address] imaging revealed mild cellulitis over the left masseter muscle and possible mastoiditis; however, MRI imaging was limited due to the cochlear implant. Infectious disease Dr. Pérez, were consulted, and empiric antibiotics were initiated. The regimen was adjusted to Zosyn and acyclovir to provide broad-spectrum coverage. Blood cultures remained negative after four days, and viral studies revealed no active HIV, RPR, or CMV infections but suggested past EBV infection. Leukopenia and thrombocytopenia began trending upward during hospitalization, and the painful mouth ulcer was evaluated for infectious and immune-mediated causes, though the exact etiology remained unclear. Hematology-oncology and ENT follow-up were advised for further evaluation. The patients elevated liver transaminases and alkaline phosphatase levels were stable during the admission. A recent liver biopsy performed in February showed no evidence of cirrhosis, but hepatic steatosis was noted on ultrasound. Suspected Crohns disease, associated with a history of bowel surgeries and prior flare-ups, was managed conservatively pending colonoscopy and outpatient follow-up with gastroenterology at [facility]. The patients seizure disorder remained well-controlled with home lamotrigine and gabapentin, which were continued without adjustments. Mild erythema and rash in the inguinal and sub-breast regions, likely candidiasis with a possible mild drug reaction, were treated with fluconazole, nystatin cream, and IV Benadryl for pruritus. At discharge, Dr. Pérez recommended a 10-day course of valacyclovir (500 mg b.i.d.), levofloxacin (500 mg daily), and fluconazole (200 mg daily) to address infectious risks until she could follow up with him outpatient. Arrangements were made for outpatient care with Dr. Pérez, hematology-oncology at [facility]. Patient did not experience further complications throughout the entire hospital stay. Patient was seen and examined on the day of discharge. All labs, diagnostic workups, discharge plan discussed with patient in details during visit before discharge. All questions and concerns answered to the best of my professional knowledge. Physical examination: General: Awake and Alert, no acute distress. HEENT: Conjunctiva pink, Sclera clear, Mucus Membranes moist. Left mandibular tenderness, no erythema Mouth ulcer on the left side gumline, size is almost as same as yesterday Neck: Supple without masses and tenderness. Resp: Lungs clear to auscultation bilaterally. Heart: Regular Rate and rhythm, normal S1 and S2 without murmur, Abdomen: Multiple abdominal scar from previous surgeries, Soft and non tender Extremities: No cyanosis,clubbing or edema. Skin: erythema under breast line bilaterally, no vesicle, no postural, no tenderness Also there is mild erythema on the area above inguinal area, right side, and lower back Neurological: Speech is clear, alert, and oriented x 4, no gross neurological deficits Laboratory Tests Test 10/07/24 04:30 White Blood Count 1.3 X10'3 Red Blood Count 3.92 X10'6 Hemoglobin 12.3 g/dl Hematocrit 35.0 % Mean Corpuscular Volume 89.3 FL Mean Corpuscular Hemoglobin 31.4 PG Mean Corpuscular Hemoglobin Concent 35.1 g/dL Red Cell Distribution Width 13.5 % Platelet Count 100 X10'3 Mean Platelet Volume 7.1 FL Neutrophils (%) (Auto) 12.4 % Lymphocytes (%) (Auto) 61.2 % Monocytes (%) (Auto) 20.9 % Eosinophils (%) (Auto) 4.6 % Basophils (%) (Auto) 0.9 % Neutrophils # (Auto) 0.2 X10'3 Lymphocytes # (Auto) 0.8 X10'3 Monocytes # (Auto) 0.3 X10'3 Eosinophils # (Auto) 0.1 X10'3 Basophils # (Auto) 0.0 X10'3 CBC Comment Differential Total Cells Counted 100 Neutrophils % (Manual) 12.0 % Lymphocytes % (Manual) 65.0 % Monocytes % (Manual) 18.0 % Eosinophils % (Manual) 5.0 % Platelet Estimate Decreased Red Blood Cell Morphology Normal Basophilic Stippling Sodium Level 141 MMOL/L Potassium Level 4.1 MMOL/L Chloride Level 106 MMOL/L Carbon Dioxide Level 27.5 MMOL/L Anion Gap 8 Blood Urea Nitrogen 13 MG/DL Creatinine 0.91 MG/DL Estimated GFR/1.73 m2 70 ML/MIN BUN/Creatinine Ratio 14.3 Glucose Level 104 MG/DL Calcium Level 9.0 MG/DL Total Bilirubin 0.7 MG/DL Aspartate Amino Transf (AST/SGOT) 72 U/L Alanine Aminotransferase (ALT/SGPT) 226 U/L Alkaline Phosphatase 245 IU/L Total Protein 6.5 G/DL Albumin 3.5 G/DL Globulin 3.0 G/DL Albumin/Globulin Ratio 1.2 Chemistry Comments Advise on discharge: - Abnormal liver function tests Follow up outpatient with Dr. Barclay. - For Weight loss and constipation, awaiting lower endoscopy outpatient. - continue antibiotics as prescribed, follow up with Dr. Pérez, infectious disease as outpatient *Problems/Diagnosis: (1) Neutropenia Total Time Spent on D/C: > 30 Minutes Date of Service: October 08, 2024 Billing Provider: BRIAN MCINTYRE MD, GAURAV, RES October 08, 2024 17:36
== END 2024-10-08 16:30 | disposition home or self-care (01) | DRG 383 ==
LOC: ER 15:41 → ED HOLD 10-02 03:29 → ORTHO 4S 10-02 08:25
PROVIDERS: ADMIT Surgery Surgical Critical Care; ATTEND Family Medicine
PROC: BN251ZZ Computerized Tomography (CT Scan) of Facial Bones using Low Osmolar Contrast (ICD-10-PCS; principal; 2024-10-02)
PROC: B92 Imaging, Ear, Nose, Mouth and Throat, Computerized Tomography (CT Scan) (ICD-10-PCS; 2024-10-02)
PROC: 05HC33Z Insertion of Infusion Device into Left Basilic Vein, Percutaneous Approach (ICD-10-PCS; 2024-10-06)
PROC: B54NZZA Ultrasonography of Left Upper Extremity Veins, Guidance (ICD-10-PCS; 2024-10-06)
DX: L03.211 Cellulitis of face (principal); D69.6 Thrombocytopenia, unspecified; Z94.84 Stem cells transplant status; D70.9 Neutropenia, unspecified; K12.1 Other forms of stomatitis; H70.92 Unspecified mastoiditis, left ear; K59.00 Constipation, unspecified; G40.909 Epilepsy, unspecified, not intractable, without status epilepticus; K06.8 Other specified disorders of gingiva and edentulous alveolar ridge; G43.909 Migraine, unspecified, not intractable, without status migrainosus; G89.29 Other chronic pain; M54.9 Dorsalgia, unspecified; F31.9 Bipolar disorder, unspecified; F41.9 Anxiety disorder, unspecified; K12.0 Recurrent oral aphthae; K29.70 Gastritis, unspecified, without bleeding; R63.4 Abnormal weight loss; R21 Rash and other nonspecific skin eruption; Z79.899 Other long term (current) drug therapy; Z90.710 Acquired absence of both cervix and uterus; Z95.1 Presence of aortocoronary bypass graft; Z88.8 Allergy status to other drugs, medicaments and biological substances; Z88.1 Allergy status to other antibiotic agents; Z68.21 Body mass index [BMI] 21.0-21.9, adult
CPT/HCPCS: 36410; 36415; 70482; 70487; 76700; 76937; 80053; 81003; 81025; 82607; 83605; 83735; 84145; 85007; 85025; 85610; 85651; 85730; 86140; 86592; 86663; 86664; 86665; 86703; 87040; 87081; 87497; 87502; 87503; 92508; 92616; 93005; 96365; 96375; 99285; A6446; C1751; G0378; J0133; J0360; J1171; J1200; J2405; J2543; J3010; J3490; J7030; J7040; Q0163; Q9967

== ENCOUNTER 2025-02-15 17:10 | Emergency (ER) | payer MEDICAID ==
[~2025-02-15] VITALS: Ht 162.6 cm; Wt 65.0 kg
[~2025-02-15 17:10] MED LIST changes: -AMIT-311 PO; -AMOX-580 PO; -CYCL-1 PO; -EST1T PO; -FREM225A; -GABA-532 PO; -HYDR-3965 PO; +LACT1CAP26 PO; -LORA-268 PO; -PROM25SU51 RC; -RIME75TA SL; -SUMA25TA35 PO; +VALA500T41 PO
[2025-02-15 17:18] VITALS: TEMP 98.1
[2025-02-15] MEDS ORDERED: ketorolac trometh 30MG/ML vial 30 MG/ML VIAL IV STA (20:56)
[2025-02-15 21:31] LABS: MEAN PLATELET VOLUME 7.4 FL (7.4-10.4); RED CELL DISTRIBUTION WIDTH 14.3 % (11.5-14.5)
[2025-02-15 21:42] LABS: CREATININE 0.76 MG/DL (0.40-0.90); TOTAL CARBON DIOXIDE 26.2 MMOL/L (24-32); eCRCL 89 ML/MIN; eGFR 87 ML/MIN
--- NOTE | 2025-02-15 22:18 | RADIOLOGY REPORT ---
CT TEMPORAL BONES WITHOUT INTRAVENOUS CONTRAST INDICATION: recent mastoiditis TECHNIQUE: Axial computed tomography images of the temporal bones without intravenous contrast. Sagittal and coronal reformatted images were created and reviewed. This CT exam was performed using one or more of the following dose reduction techniques: automated exposure control, adjustment of the mA and/or kV according to patient size, and/or use of iterative reconstruction technique. Dose: CTDIvol: 62.8 mGy, DLP: 597.07 mGy.cm COMPARISON: CT CT MASTOIDS/EAR W/ IV CONTRAST on DOS: 10/02/24, CT CT FACIAL BONES/SOFT TISSUE W/ IV CONTRAST on DOS: 10/02/24, CT CT FACIAL BONES/SOFT TISSUE W/ IV CONTRAST on DOS: 09/27/24, CT HEAD on DOS: 12/29/22, CT FACIAL BONES/SOFT TISSUE on DOS: 03/29/22 FINDINGS: Prior left mastoidectomy with left cochlear implant. The remaining left mastoid air cells again appear opacified. No osseous erosion is seen. The right mastoid air cells appear clear. Incompletely assessed Subtotal opacification of the maxillary antra and left ethmoid air cells. IMPRESSION: 1. No significant interval change. Redemonstration of opacification of the remaining left mastoid air cells, which could reflect effusion. Further clinical correlation is suggested to exclude mastoiditis. 2. Paranasal sinus disease as detailed. Automatic exposure control was used as a dose lowering technique.
[2025-02-15] MEDS: acetaminophen 1,000mg/100ml IV 100 ML IV STA (22:43)
[2025-02-15] MEDS: normal saline 1000ml 1,000 ML IV ONE (22:43)
--- NOTE | 2025-02-15 22:48 | Physician Documentation ---
History of Present Illness ~ Chief Complaint: Head Pain Stated Complaint: HEAD PAIN Time Seen by MD: 22:08 Primary Medical Doctor: Dr. Schmitt Mode of Arrival: EMS HPI Patient presents to the emergency room for evaluation of bilateral ear pain. Patient's history is complicated as she has cochlear implant that has well as leukemia and history of mastoiditis that has well as history of migraines. No fevers. Medication Reconciliation Allergies: Coded Allergies: tramadol (Verified Allergy, Severe, SEIZURES, 10/02/24) lowers seizure threshold therefore has more seizures Iodinated Contrast Media (Unverified Allergy, Unknown, 10/02/24) hives but is willing to take if have benedryl on board dextrose 5 % in water (Verified Allergy, Unknown, RAISED RASH, 10/02/24) raised rash - could possibly take w/benedryl linezolid (Verified Allergy, Unknown, RAISED RASH, 10/02/24) rash - able to take w/benedryl prochlorperazine edisylate (Verified Allergy, Unknown, 10/02/24) makes mood change to mean/angery per patient report prochlorperazine maleate (Verified Allergy, Unknown, 10/02/24) per patient changes mood to angry vancomycin (Verified Allergy, Unknown, 10/02/24) hives - maybe able to take with benedryl ketorolac (Unverified Adverse Reaction, Severe, seizures, 09/27/24) Patient states this medication has caused her to have seizures. Uncoded Allergies: IV CONTRAST (Allergy, Unknown, 02/08/15) Scheduled Lactobacillus Rhamnosus (Culturelle), 1 CAP PO DAILY Valacyclovir HCl (Valacyclovir), 1 TAB PO DAILY Valacyclovir HCl (Valacyclovir), 1 TAB PO BID Past Medical History Past Medical History: Headache, Migraine, Seizures, Pneumonia, *GI/HEPATOBILIARY*, Anemia, Liver Disease, Hernia, Chronic Pain, Chronic Back Pain, Extremity Fracture, Cellulitis, Leukemia, Anxiety, Bipolar, Depression Past Surgical History: abdominal surgery, cholecystectomy, coronary bypass surgery, hysterectomy, other Other Past Surgical History: bone marrow transplant, abdominal wound vac Alcohol Use: None Drug Use: none Lives with: Family Lives In: Home Occupation: employed Review of Systems ROS All review of systems negative except as per HPI Physical Exam Vital Signs: Temperature: 98.1, Source: Oral, Heart Rate: 77, Respiratory Rate: 16, BP: 133/100, Pulse Oximetry: 99, Weight: 65.000 Oxygen Flow Rate: 0 Physical Exam General: Patient is awake, alert, oriented x4 in no acute distress Head: Normocephalic and atraumatic. Eyes: Conjunctival normal. EOMI. PERRL. ENT: Mucous membranes moist. Tympanic membranes with good cone of light reflex bilaterally in bilateral tympanic membranes insufflated Neck: Supple, trachea is midline. Chest: Clear to auscultation bilaterally without rales, rhonchi, or wheezes. There is no accessory muscle use or retractions. Cardiac: RRR without murmurs, gallops, or rubs. Progress Results/Orders Results/Orders Completed Orders - PAYAM GOOD MD Metoclopramide Inj (Reglan Inj) (02/15/25 22:40) Diphenhydramine Inj (Benadryl Inj.) (02/15/25 22:40) Haloperidol Lact. (Haldol) (02/16/25 00:35) Medications Received in ER Medications (Trade) Dose Ordered Sig/Radha Route PRN Reason Start Time Stop Time Status Last Admin Dose Admin Acetaminophen 100 ml @ 400 mls/hr ONCE STAT IV 02/15/25 20:56 02/15/25 21:10 DC 02/15/25 22:43 400 MLS/HR Sodium Chloride 1,000 ml @ 1,000 mls/hr ONCE ONCE IV 02/15/25 21:00 02/15/25 21:59 DC 02/15/25 22:43 1,000 MLS/HR (Reglan inj) 10 mg ONCE ONCE IV 02/15/25 22:40 02/15/25 22:41 DC 02/15/25 23:01 10 MG (Benadryl inj.) 25 mg ONCE ONCE IV 02/15/25 22:40 02/15/25 22:41 DC 02/15/25 23:01 25 MG (Haldol) 5 mg ONCE ONCE IM 02/16/25 00:35 02/16/25 00:42 DC 02/16/25 01:01 5 MG Vital Signs 02/15/25 02/15/25 02/15/25 02/15/25 17:18 22:28 22:29 23:37 Temp 98.1 Pulse 99 77 68 Resp 17 18 16 18 B/P (MAP) 138/100 133/100 (111) Pulse Ox 99 99 98 O2 Flow Rate 0 02/16/25 01:21 Pulse 68 Resp 16 B/P (MAP) 116/80 (92) Pulse Ox 99 Laboratory Tests Test 02/15/25 21:22 White Blood Count 5.6 Red Blood Count 4.79 Hemoglobin 14.6 Hematocrit 42.1 Mean Corpuscular Volume 87.9 Mean Corpuscular Hemoglobin 30.5 Mean Corpuscular Hemoglobin Concent 34.7 Red Cell Distribution Width 14.3 Platelet Count 153 Mean Platelet Volume 7.4 Neutrophils (%) (Auto) 58.7 Lymphocytes (%) (Auto) 34.8 Monocytes (%) (Auto) 4.5 Eosinophils (%) (Auto) 1.5 Basophils (%) (Auto) 0.5 Neutrophils # (Auto) 3.3 Lymphocytes # (Auto) 1.9 Monocytes # (Auto) 0.2 Eosinophils # (Auto) 0.1 Basophils # (Auto) 0.0 CBC Comment Sodium Level 140 Potassium Level 3.6 Chloride Level 102 Carbon Dioxide Level 26.2 Anion Gap 12 Blood Urea Nitrogen 21 H Creatinine 0.76 Estimated GFR/1.73 m2 87 BUN/Creatinine Ratio 27.6 H Glucose Level 80 Lactic Acid Level 0.9 Calcium Level 9.8 Albumin 4.6 Procalcitonin < 0.05 Chemistry Comments Medical Decision Making Findings Patient presented to the emergency room for evaluation of bilateral ear pain. Differentials include but are not limited to Eustachian tube dysfunction, mastoiditis, otitis externa, otitis interna, migraine therefore emergent labs and imaging indicated. CT scan shows no change from previous and labs are reassuring for no signs of infection. Patient's headache is improved. Patient does exhibit photophobia which has improved as well. They believe that has an element of migraines as well as Eustachian tube dysfunction given bilateral symptoms. I do not feel she requires antibiotics. ER precautions discussed. Departure Disposition: HOME / SELF CARE / HOMELESS Impression: Primary Impression: Headache Additional Impression: Eustachian tube dysfunction Condition: Improved Discharge Instructions: Eustachian Tube Dysfunction Referrals: NO PRIMARY CARE PROVIDER (PCP) Signature Scribe Signature: No scribe Attestation: The note accurately reflects work and decisions made by me.Payam Good MD 02/16/25 02:17 PAYAM GOOD MD Feb 15, 2025 22:48
[2025-02-15] MEDS: metoclopramide 5 mg/ml inj IV ONE (23:01)
[2025-02-16] MEDS: haloperidol lactate 5mg/ml inj IM ONE (01:01)
[2025-02-16 02:48] VITALS: BP 114/86; PULSE 76; RESP 16; O2SAT 99
== END 2025-02-16 02:50 | disposition home or self-care (01) ==
LOC: ER 17:11
DX: H69.93 Unspecified Eustachian tube disorder, bilateral (principal); G89.29 Other chronic pain; G43.909 Migraine, unspecified, not intractable, without status migrainosus; F31.9 Bipolar disorder, unspecified; Z88.1 Allergy status to other antibiotic agents; Z88.5 Allergy status to narcotic agent; Z90.49 Acquired absence of other specified parts of digestive tract; Z90.710 Acquired absence of both cervix and uterus; Z91.041 Radiographic dye allergy status; Z95.1 Presence of aortocoronary bypass graft; Z94.81 Bone marrow transplant status
CPT/HCPCS: 36415; 70480; 80048; 83605; 84145; 85025; 96365; 96366; 96372; 96375; 99285; J0131; J1200; J1630; J2765; J7030

== ENCOUNTER 2025-02-27 09:07 | Emergency (ER) | payer MEDICAID ==
[~2025-02-27] VITALS: Ht 162.6 cm; Wt 68.2 kg
[2025-02-27 09:15] VITALS: TEMP 97.6
--- NOTE | 2025-02-27 09:33 | ELECTROCARDIOGRAPH REPORT ---
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
--- NOTE | 2025-02-27 10:02 | RADIOLOGY REPORT ---
DI HAND, COMPLETE (3VW MIN), INDICATION: RT. HAND PAIN, RT. PINKY FINGER TECHNICAL DATA: Frontal, oblique and lateral views were obtained of the right hand. COMPARISON: DI HAND, COMPLETE (3VW MIN) on DOS: 08/21/23, HAND, COMPLETE (3VW MIN) on DOS: 08/29/22 FINDINGS: No fracture is identified. Joint spaces are maintained. Alignment is anatomic. Soft tissues are within normal limits. IMPRESSION: No acute fracture or dislocation of the right hand.
--- NOTE | 2025-02-27 10:03 | RADIOLOGY REPORT ---
CLINICAL HISTORY: neck trauma TECHNIQUE: Helical scanning was performed of the head from the skull base to the vertex. Multiplanar reconstructions were performed. This exam was performed according to our departmental dose optimization program. Up-to-date CT equipment and radiation dose reduction techniques are utilized as appropriate. CTDI 56 DLP 1082 COMPARISON: CT CT MASTOIDS/EAR on DOS: 02/15/25, CT CT MASTOIDS/EAR W/ IV CONTRAST on DOS: 10/02/24, CT CT FACIAL BONES/SOFT TISSUE W/ IV CONTRAST on DOS: 10/02/24, CT CT FACIAL BONES/SOFT TISSUE W/ IV CONTRAST on DOS: 09/27/24, CT HEAD on DOS: 12/29/22 FINDINGS: A left hearing device limits the evaluation of adjacent structures due to significant beam hardening artifact. There is no evidence for acute intracranial hemorrhage, acute ischemic changes, mass, mass effect, or extra-axial fluid collection. There is no hydrocephalus or midline shift. There is no effacement of the cerebral sulci and basal subarachnoid cisterns. The calles-white matter differentiation is well maintained. The imaged paranasal sinuses redemonstrated moderate left maxillary sinus mucosal thickening with secretions. IMPRESSION: Limited exam with no acute intracranial abnormality seen. Moderate left maxillary sinus mucosal thickening with secretions.
--- NOTE | 2025-02-27 10:07 | RADIOLOGY REPORT ---
EXAM: DI CHEST,SINGLE VIEW Indication: trauma; pain Technique: Single frontal view of the chest was obtained Comparison: DI CHEST,SINGLE VIEW on DOS: 09/27/24, CT CT CHEST ABDOMEN PELVIS on DOS: 04/13/24, CT CT ABDOMEN PELVIS on DOS: 02/15/24, DI CHEST,SINGLE VIEW on DOS: 02/15/24, CT CT ABDOMEN PELVIS on DOS: 11/10/23 FINDINGS: Lines and Tubes: None Lungs: No focal consolidation. Pleura: No effusion. No pneumothorax. Cardiomediastinal contours: Unremarkable Bones: No acute osseous abnormality. IMPRESSION: No acute cardiopulmonary disease.
--- NOTE | 2025-02-27 10:19 | RADIOLOGY REPORT ---
EXAM: CT CT CERVICAL SPINE HISTORY: neck trauma COMPARISON: CT CT HEAD on DOS: 02/27/25, DI THORACIC SPINE COMPLETE on DOS: 01/20/23, CT HEAD on DOS: 12/29/22, CT CERVICAL SPINE on DOS: 12/29/22, CT HEAD on DOS: 03/29/22 CTDIvol 21 mGy, DLP 21 501 mGy*cm. TECHNIQUE: Multiple axial CT images of the spine were obtained using bone algorithm. Axial and coronal reformatting was done. Bone and soft tissue windows were reviewed. FINDINGS: No evidence of definite acute fracture, spinal dislocation, or significant appearing acute subluxation is seen. Degenerative disc uncinate hypertrophy and moderate canal stenosis at C5-C6. IMPRESSION: No definite CT evidence of acute fracture or dislocation of the bony cervical spine.
[2025-02-27 10:37] LABS: CREATININE 0.69 MG/DL (0.40-0.90); ETHANOL < 10 MG/DL (<10); TOTAL CARBON DIOXIDE 27.5 MMOL/L (24-32); eCRCL 98 ML/MIN; eGFR > 90 ML/MIN
--- NOTE | 2025-02-27 10:50 | Physician Documentation ---
History of Present Illness ~ Chief Complaint: Trauma Level 2 Stated Complaint: KNOCKED OFF HORSE/FRACTURED ARM Time Seen by MD: 09:17 Primary Medical Doctor: Dr. Schmitt HPI Patient is seen today with complaints of trying to load her horse into a horse trailer and then she is not sure what happened and she found herself on the ground having been knocked out. Patient states she was with a family member but this patient is not sure exactly how long she was not out for in his she is not sure what exactly happened. Patient does have cochlear implants. Patient states his main source of her pain is on the left side of her occiput. She has no other concern or complaint at this time. She denies any chest pain or shortness of breath or abdominal pain or nausea, vomiting, diarrhea. Patient does also have pain of her right hand. She complains of pain of her neck decreased range of motion Tetanus within 5 years?: No Medication Reconciliation Allergies: Coded Allergies: tramadol (Verified Allergy, Severe, SEIZURES, 02/27/25) lowers seizure threshold therefore has more seizures Iodinated Contrast Media (Unverified Allergy, Unknown, 02/27/25) hives but is willing to take if have benedryl on board dextrose 5 % in water (Verified Allergy, Unknown, RAISED RASH, 02/27/25) raised rash - could possibly take w/benedryl linezolid (Verified Allergy, Unknown, RAISED RASH, 02/27/25) rash - able to take w/benedryl prochlorperazine edisylate (Verified Allergy, Unknown, 02/27/25) makes mood change to mean/angery per patient report prochlorperazine maleate (Verified Allergy, Unknown, 02/27/25) per patient changes mood to angry vancomycin (Verified Allergy, Unknown, 10/02/24) hives - maybe able to take with benedryl ketorolac (Unverified Adverse Reaction, Severe, seizures, 09/27/24) Patient states this medication has caused her to have seizures. Uncoded Allergies: IV CONTRAST (Allergy, Unknown, 02/08/15) Scheduled Lactobacillus Rhamnosus (Culturelle), 1 CAP PO DAILY Valacyclovir HCl (Valacyclovir), 1 TAB PO DAILY Valacyclovir HCl (Valacyclovir), 1 TAB PO BID Past Medical History Past Medical History: Headache, Migraine, Seizures, Pneumonia, *GI/HEPATOBILIARY*, Anemia, Liver Disease, Hernia, Chronic Pain, Chronic Back Pain, Extremity Fracture, Cellulitis, Leukemia, Anxiety, Bipolar, Depression Past Surgical History: abdominal surgery, cholecystectomy, coronary bypass surgery, hysterectomy, other Other Past Surgical History: bone marrow transplant, abdominal wound vac Alcohol Use: None Drug Use: none Lives with: Family Lives In: Home Occupation: employed Review of Systems Constitutional: Denies: chills, fever, weakness Eyes: Denies: pain, blurred vision ENT: Denies: ear pain, nose pain, throat pain, mouth pain Respiratory: Denies: cough, shortness of breath Cardiovascular: Denies: chest pain, palpitations Gastrointestinal: Denies: abdominal pain, nausea, vomiting Genitourinary: Denies: burning, dysuria Female Genitalia: Denies: vaginal discharge, pelvic pain Neurological: Denies: headache, dizziness Musculoskeletal: Denies: pain, swelling Integumentary: Denies: rash, lesions Allergic/Immunologic: Denies: hives, itching Hematologic/Lymphatic: Denies: no symptoms reported Psychiatric: Denies: depression, anxiety Physical Exam Vital Signs: Temperature: 97.6, Source: Temporal, Heart Rate: 95, Respiratory Rate: 18, BP: 148/84, Pulse Oximetry: 100, Weight: 68.200 Physical Exam General: Awake and Alert, no acute distress. HEENT: Conjunctiva pink, Sclera clear, Mucus Membranes moist. Neck: Supple without masses and tenderness. Resp: Unlabored. Lungs clear to auscultation bilaterally. Heart: Regular Rate and rhythm, normal S1 and S2 without murmur, rub or gallop. Abdomen: Soft and non tender no organomegaly Extremities: No cyanosis,clubbing or edema. Skin: Warm and Dry. Progress Results/Orders Results/Orders Orders - COURTNEY BE PAC Urinalysis, Cult If Indicated (02/27/25 09:17) Drug Screen, Urine (02/27/25 09:17) Ct Cervical Spine (02/27/25 09:51) Ct Head (02/27/25 09:52) Hs Troponin I W Calculations (02/27/25 11:17) Hs Troponin I W Calculations (02/27/25 12:17) Chest,Single View (02/27/25 09:17) Hand, Complete (3vw Min) (02/27/25 ) Ketorolac Trometh 30mg/Ml Vial (Toradol (02/27/25 11:00) Hydrocodone/Apap 10/325 (Rosholt 10/325mg (02/27/25 11:00) Completed Orders - COURTNEY BE PAC Electrocardiogram (02/27/25 09:17) Lipase (02/27/25 09:17) Ethanol (02/27/25 09:17) CK (02/27/25 09:17) Ct Cervical Spine (02/27/25 09:51) Ct Head (02/27/25 09:52) BMP (02/27/25 09:17) Hs Troponin I W Calculations (02/27/25 09:17) Chest,Single View (02/27/25 09:17) Hand, Complete (3vw Min) (02/27/25 ) Vital Signs 02/27/25 02/27/25 09:15 10:46 Temp 97.6 Pulse 95 74 Resp 18 20 B/P (MAP) 148/84 123/95 (104) Pulse Ox 100 99 O2 Flow Rate 0 Laboratory Tests Test 02/27/25 10:05 CBC Comment Sodium Level 142 Potassium Level 3.9 Chloride Level 108 H Carbon Dioxide Level 27.5 Anion Gap 7 L Blood Urea Nitrogen 19 H Creatinine 0.69 Estimated GFR/1.73 m2 > 90 BUN/Creatinine Ratio 27.5 H Glucose Level 108 H Calcium Level 9.0 Total Creatine Kinase 167 Troponin I High Sensitivity 5 Albumin 3.7 Lipase 50 Chemistry Comments Ethyl Alcohol Level < 10 EKG/XRAY/CT/US/VASC/MRI Chest X-Ray : Additional Comments X-ray interpreted by myself today shows no sign of large infiltrate, no large effusion, normal mediastinum. DIAGNOSTIC RADIOLOGY Patient: SANG FRANKS Medical Record: [id number] : 1990, Age: 34 Sex: Female Location: ER Patient Status: REG ER Service Date/Time: 02/27/25916 Ordering Physician: COURTNEY BE PAC Exam: CHEST,SINGLE VIEW EXAM: DI CHEST,SINGLE VIEW Indication: trauma; pain Technique: Single frontal view of the chest was obtained Comparison: DI CHEST,SINGLE VIEW on DOS: 09/27/24, CT CT CHEST ABDOMEN PELVIS on DOS: 04/13/24, CT CT ABDOMEN PELVIS on DOS: 02/15/24, DI CHEST,SINGLE VIEW on DOS: 02/15/24, CT CT ABDOMEN PELVIS on DOS: 11/10/23 FINDINGS: Lines and Tubes: None Lungs: No focal consolidation. Pleura: No effusion. No pneumothorax. Cardiomediastinal contours: Unremarkable Bones: No acute osseous abnormality. IMPRESSION: No acute cardiopulmonary disease. Electronically Signed by:LEON MARTÍNEZ MD Date & Time: 02/27/251003 Dictated by: LEON MARTÍNEZ MD Dictation date and time: 02/27/25 100 Primary Care Provider: NO PRIMARY CARE PROVIDER cc: COURTNEY BE PAC ~ Bone/Soft Tissue X-Ray (Ext.) : Additional Comment X-ray of the right hand interpreted by myself today shows no sign of acute fracture, bones in anatomic alignment, no dislocation. DIAGNOSTIC RADIOLOGY Patient: SANG FRANKS Medical Record: [id number] [facility] 1990, Age: 34 Sex: Female Location: ER Patient Status: REG ER Service Date/Time: 02/27/25 Ordering Physician: COURTNEY BE PAC Exam: HAND, COMPLETE (3VW MIN) DI HAND, COMPLETE (3VW MIN), INDICATION: RT. HAND PAIN, RT. PINKY FINGER TECHNICAL DATA: Frontal, oblique and lateral views were obtained of the right hand. COMPARISON: DI HAND, COMPLETE (3VW MIN) on DOS: 3/15/24, HAND, COMPLETE (3VW MIN) on DOS: 08/29/22 FINDINGS: No fracture is identified. Joint spaces are maintained. Alignment is anatomic. Soft tissues are within normal limits. IMPRESSION: No acute fracture or dislocation of the right hand. Electronically Signed by:ALEKSANDR MCCLAIN MD Date & Time: 02/27/25 1000 Dictated by: ALEKSANDR MCCLAIN MD Dictation date and time: 02/27/25 1000 Primary Care Provider: NO PRIMARY CARE PROVIDER cc: COURTNEY BE PAC ~ CT : Impression CAT SCAN Patient: SANG FRANKS Medical Record: [id number] [facility] 1990, Age: 34 Sex: Female Location: ER Patient Status: REG ER Service Date/Time: 02/27/25950 Ordering Physician: COURTNEY BE PAC Exam: CT CERVICAL SPINE EXAM: CT CT CERVICAL SPINE HISTORY: neck trauma COMPARISON: CT CT HEAD on DOS: 02/27/25, DI THORACIC SPINE COMPLETE on DOS: 01/20/23, CT HEAD on DOS: 12/29/22, CT CERVICAL SPINE on DOS: 12/29/22, CT HEAD on DOS: 03/29/22 CTDIvol 21 mGy, DLP 21 501 mGy*cm. TECHNIQUE: Multiple axial CT images of the spine were obtained using bone algorithm. Axial and coronal reformatting was done. Bone and soft tissue windows were reviewed. FINDINGS: No evidence of definite acute fracture, spinal dislocation, or significant appearing acute subluxation is seen. Degenerative disc uncinate hypertrophy and moderate canal stenosis at C5-C6. IMPRESSION: No definite CT evidence of acute fracture or dislocation of the bony cervical spine. Electronically Signed by:MAICOL FRAUSTO MD Date & Time: 02/27/25 1016 Dictated by: MAICOL FRAUSTO MD Dictation date and time: 02/27/25950 Primary Care Provider: NO PRIMARY CARE PROVIDER cc: COURTNEY BE PAC ~ CAT SCAN Patient: SANG FRANKS Medical Record: [id number] [facility] 1990, Age: 34 Sex: Female Location: ER Patient Status: [facility] ER Service Date/Time: 02/27/25951 Ordering Physician: COURTNEY BE PAC Exam: CT HEAD CLINICAL HISTORY: neck trauma TECHNIQUE: Helical scanning was performed of the head from the skull base to the vertex. Multiplanar reconstructions were performed. This exam was performed according to our departmental dose optimization program. Up-to-date CT equipment and radiation dose reduction techniques are utilized as appropriate. CTDI 56 DLP 1082 COMPARISON: CT CT MASTOIDS/EAR on DOS: 02/15/25, CT CT MASTOIDS/EAR W/ IV CONTRAST on DOS: 10/02/24, CT CT FACIAL BONES/SOFT TISSUE W/ IV CONTRAST on DOS: 10/02/24, CT CT FACIAL BONES/SOFT TISSUE W/ IV CONTRAST on DOS: 09/27/24, CT HEAD on DOS: 12/29/22 FINDINGS: A left hearing device limits the evaluation of adjacent structures due to significant beam hardening artifact. There is no evidence for acute intracranial hemorrhage, acute ischemic changes, mass, mass effect, or extra-axial fluid collection. There is no hydrocephalus or midline shift. There is no effacement of the cerebral sulci and basal subarachnoid cisterns. The calles-white matter differentiation is well maintained. The imaged paranasal sinuses redemonstrated moderate left maxillary sinus mucosal thickening with secretions. IMPRESSION: Limited exam with no acute intracranial abnormality seen. Moderate left maxillary sinus mucosal thickening with secretions. Electronically Signed by:KATHI CALVO MD Date & Time: 02/27/25 1000 Dictated by: KATHI CALVO MD Dictation date and time: 02/27/25 1000 Primary Care Provider: NO PRIMARY CARE PROVIDER cc: COURTNEY BE PAC ~ Medical Decision Making Findings Patient is seen today with complaints of trying to load her horse into a horse trailer and then she is not sure what happened and she found herself on the ground having been knocked out. Patient states she was with a family member but this patient is not sure exactly how long she was not out for in his she is not sure what exactly happened. Patient does have cochlear implants. Patient states his main source of her pain is on the left side of her occiput. She has no other concern or complaint at this time. She denies any chest pain or shortness of breath or abdominal pain or nausea, vomiting, diarrhea. Patient does also have pain of her right hand. She complains of pain of her neck decreased range of motion. Patient did have CT scan of head and neck that returned unremarkable. Patient also had x-ray of chest and right hand that showed no acute findings. Patient has small finger of the right hand shows no sign of fracture. Patient will return in seven days for repeat x-ray of that right small finger if it continues to be painful. Patient was given Toradol 15 mg IM in the ED today. Patient in the ED denied any anaphylactic reaction or rash or hives or primary allergy to Toradol and states she is just concerned about it lowering her seizure threshold. Patient was also given Rosholt 10/325 mg by mouth in the ED today. Prescription of Rosholt and ibuprofen sent to patient's pharmacy and patient will continue muscle relaxer Flexeril as needed. Patient will follow up with primary care in 2-5 days if no better as needed sooner. Return to ED with any worsening, concerning or changing symptoms. Departure Disposition: 01 HOME / SELF CARE / HOMELESS Impression: Primary Impression: Headache Qualified Codes: G44.319 - Acute post-traumatic headache, not intractable Additional Impressions: Neck pain Finger pain, left Condition: Improved Discharge Instructions: Concussion, Adult, [id number] Additional Instructions: Patient did have CT scan of head and neck that returned unremarkable. Patient also had x-ray of chest and right hand that showed no acute findings. Patient has small finger of the right hand shows no sign of fracture. Patient will return in seven days for repeat x-ray of that right small finger if it continues to be painful. Patient was given Toradol 15 mg IM in the ED today. Patient in the ED denied any anaphylactic reaction or rash or hives or primary allergy to Toradol and states she is just concerned about it lowering her seizure threshold. Patient was also given Rosholt 10/325 mg by mouth in the ED today. Prescription of Rosholt and ibuprofen sent to patient's pharmacy and patient will continue muscle relaxer Flexeril as needed. Patient will follow up with primary care in 2-5 days if no better as needed sooner. Return to ED with any worsening, concerning or changing symptoms. Referrals: NO PRIMARY CARE PROVIDER (PCP) Prescriptions Ibuprofen (Ibuprofen) 800 Mg Tablet 1 TAB PO Q8H for pain for 10 Days, #30 TAB 0 Refills Prov: COURTNEY BE 02/27/25 Hydrocodone Bit/Acetaminophen (Hydrocodone-Apap 10-325 Tablet) 10mg/325mg Tablet 1 TAB PO TID PRN PRN for pain for 5 Days, #15 TAB Prov: COURTNEY BE 02/27/25 Signature Scribe Signature: No scribe Attestation: No scribe COURTNEY BE Feb 27, 2025 10:50
[2025-02-27] MEDS ORDERED: HYDROcodone/acetaminophen 10/325mg tab PO STA (11:00)
[2025-02-27] MEDS ORDERED: HYDR-3973 PO (11:07)
[2025-02-27] MEDS ORDERED: IBUP-1986 PO (11:09)
[2025-02-27] MEDS: ketorolac trometh 15mg/ml vial 15 MG/ML ML IM STA (11:11)
[2025-02-27 11:40] VITALS: BP 112/92; PULSE 74; RESP 18; O2SAT 99
== END 2025-02-27 11:41 | disposition home or self-care (01) ==
LOC: ER 09:08
DX: G43.909 Migraine, unspecified, not intractable, without status migrainosus (principal); M54.2 Cervicalgia; M79.644 Pain in right finger(s); D64.9 Anemia, unspecified; F41.9 Anxiety disorder, unspecified; F31.9 Bipolar disorder, unspecified; G89.29 Other chronic pain; Z91.041 Radiographic dye allergy status; Z88.5 Allergy status to narcotic agent; Z90.49 Acquired absence of other specified parts of digestive tract; Z90.710 Acquired absence of both cervix and uterus; Z95.1 Presence of aortocoronary bypass graft; Z88.1 Allergy status to other antibiotic agents; Z88.8 Allergy status to other drugs, medicaments and biological substances
CPT/HCPCS: 36415; 71045; 73130; 80048; 80320; 82550; 83690; 84484; 85025; 93005; 99285

== ENCOUNTER 2025-03-10 15:36 | Outpatient (CLI) | payer MEDICAID ==
[~2025-03-10 15:36] MED LIST changes: +IBUP-1986 PO; +iohexol 300mg/ml 100ml inj. ONE
[2025-03-10] MEDS ORDERED: iohexol 300mg/ml 100ml inj. ONE (16:13)
--- NOTE | 2025-03-10 17:35 | RADIOLOGY REPORT ---
INDICATION: SENSORINEURAL HEARING LOSS EXAM DATE: 03/10/2025 04:31 PM COMPARISON: CT CT HEAD on DOS: 02/27/25, CT CT MASTOIDS/EAR on DOS: 02/15/25, CT CT MASTOIDS/EAR W/ IV CONTRAST on DOS: 10/02/24, CT CT FACIAL BONES/SOFT TISSUE W/ IV CONTRAST on DOS: 10/02/24, CT CT FACIAL BONES/SOFT TISSUE W/ IV CONTRAST on DOS: 09/27/24 TECHNIQUE: CT of the sinuses with intravenous contrast. RADIATION DOSE: CTDIvol: 53.31 mGy, DLP: 1018.1 mGy*cm Contrast: 100 cc omnipaque 300 FINDINGS: Left posterior temporal hearing device/cochlear implant with extensive metallic artifact in this region. No CP angle mass within the limits of a CT. Cochlear implant on the left with expected postsurgical changes from partial mastectomy. Middle ears are well aerated. Obstacles appear normal. Please note dedicated temporal bone study was not performed. Within these limits, no obvious abnormal sclerosis or erosive changes at the cochlea or round / oval windows. The frontal sinuses are clear. The ethmoid air cells are clear bilaterally. The maxillary sinuses are clear bilaterally. The sphenoid sinuses are clear. The ostiomeatal unit complexes appear patent bilaterally. The cribriform plate and lamina papyracea appear grossly intact. No abnormality of the orbits or globes is identified. The visualized brain is unremarkable. The surrounding soft tissues and osseous structures are unremarkable. IMPRESSION: No clear cause for hearing loss within the limits of a CT
== END 2025-03-10 23:59 | disposition home or self-care (01) ==
LOC: RAD 15:36
PROVIDERS: ATTEND Nurse Practitioner Occupational Health
DX: H90.5 Unspecified sensorineural hearing loss (principal)
CPT/HCPCS: 70488; Q9967